=== PATIENT | female | born 1950 | race Caucasian/White ===

== ENCOUNTER 2018-05-29 06:02 | Inpatient (IN) ==
[2018-05-29] MEDS ORDERED: Albuterol 2.5 MG/3 ML NEBULIZER IH ONE (06:29)
[2018-05-29] MEDS ORDERED: CeFAZolin Syr 2,000MG/20 ML 2,000 MG/20 ML SYRINGE IVPB ONE (06:29)
[2018-05-29] MEDS ORDERED: Ringers Solution, Lactated 1,000 ML IVC SCH ×2 (06:30→11:30)
--- NOTE | 2018-05-29 06:46 | Anesthesia Evaluation PreOp ---
Date of Encounter: 05/29/18 Time of Encounter: 06:43 - Past History Planned Operation: Fem-[facility] Cardiac History: HTN, Hyperlipidemia, Arrhythmia (a-fib), Other (PAD, denies angina. Not very active due to claudication, I suspect METS<4) Pulmonary History: Smoker, Pack/yr (55), COPD, BATSHEVA Dx (no CPAP/BiPAP) FIELD SERVICE REPRESENTATIVE History: Seizures (with ) Other Medical History: Diabetes Type II (25 yrs), GERD Anesthesia History: No Prior Anesthetic Complications, Past Anesthesia (CTR, stevie, left AKS, cataract) Alcohol Use: rarely Drug use: none Medications and Allergies Albuterol Sulfate [Proventil Hfa] 2 puff IH Q4H PRN 01/26/18 [History] Clopidogrel [Plavix] 75 mg PO DAILY 01/26/18 [History] Ezetimibe [Zetia] 10 mg PO DAILY 01/26/18 [History] Fluticasone Propionate Nasal [Flonase] 50 mcg NS BID PRN 01/26/18 [History] Furosemide [Lasix] 40 mg PO DAILY 01/26/18 [History] HYDROcodone/Acet 7.5/325 mg [[place] 7.5-325 mg] 1 tab PO Q4-6H PRN 01/26/18 [History] Insulin ASPART [Novolog Flexpen] 3 - 5 unit SQ QID 01/26/18 [History] Insulin Glargine,Hum.rec.anlog [Lantus Solostar] 62 unit SQ HS 01/26/18 [History] Ipratropium/Albuterol Neb [Duoneb] 3 ml IH QID PRN 01/26/18 [History] Linagliptin [Tradjenta] 5 mg PO DAILY 01/26/18 [History] Metformin HCl [Fortamet] 1,000 mg PO BID 01/26/18 [History] Metoprolol Succinate [Toprol Xl] 200 mg PO DAILY 01/26/18 [History] Umeclidinium Brm/Vilanterol Tr [Anoro Ellipta 62.5-25 Mcg INH] 1 each IH DAILY 01/26/18 [History] Potassium Chloride [Klor-Con 10] 20 meq PO BID #60 tablet.er 01/28/18 [Rx] amLODIPine [Norvasc] 10 mg PO DAILY #30 tablet 01/28/18 [Rx] Losartan Potassium 100 mg PO DAILY 03/23/18 [History] Tizanidine HCl [Zanaflex] 2 mg PO BID 03/23/18 [History] Allergy/AdvReac Type Severity Reaction Status Date / Time Amoxicillin [From Trimox] Allergy Rash Verified 04/04/18 12:50 Penicillins AdvReac See Verified 04/04/18 12:50 Comments - Meds/Allergy Pre-op Review Medications Reviewed: Yes Allergies Reviewed: Yes Beta Blockers on Current Med List: Yes If Beta Blockers taken, Date/Time (Last Dose taken): yesterday 1330 Anesthesia Results - Labs Laboratory Tests 05/21/18 05/21/18 05/21/18 13:05 13:05 13:05 Hgb 14.2 Hct 43.0 Plt Count 293 PT 12.2 H INR 1.1 APTT 31.6 Sodium 140 Potassium 3.3 L BUN 7 L Creatinine 0.69 - Imaging EKG: report reviewed (Atrial fibrillation Ventricular bigeminy LVH with secondary repolarization abnormality) Additional studies: stress test: Impression: Perfusion imaging was positive for ischemia. There is a small sized reversible perfusion defect which is mild in intensity in the mid-anterolateral segment. SDS = 1. Clinical correlation is recommended. Pharmacologic ECG was non diagnostic for ischemia. Gated EF of 19%. May not be accurate as patient is in afib and had PVCs. Recommend echocardiogram Patient had no chest pain with stress. Normal hemodynamic response. There is no evidence of TID. PFTs: INTERPRETATION: Quality: Acceptable for interpretation; patient could not complete DLCO despite several attempts Spirometry shows mild airway obstructive pattern Following Bronchodilator, there is significant improvement in FVC by 14%. MVV is decreased. Increased Lung Volumes reveal hyperinflation and air trapping. FTotal lung capacitylow Volume Loop: Obstructive Anesthesia Exam - HEENT Pupil (Motor): EOMI Mallampati: III Teeth: Edentulous Oral Opening: Greater than 3 - FIELD SERVICE REPRESENTATIVE LOC: Oriented FIELD SERVICE REPRESENTATIVE Motor: Normal RUE, Normal LUE, Normal RLE, Normal LLE, Normal Face FIELD SERVICE REPRESENTATIVE Sensory: Normal: RUE, LUE, RLE, LLE, Face - Cardiac Rhythm: Irregular Murmur: None - Pulmonary Breath Sounds: bilateral Rhonchi (scattered) - Additional Findings Patient had extensive workup at [facility] in . 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 Multiple pages reviewed form Zac. Anesthesia Assess/Plan ASA Score: 4 Level of consciousness: Cooperative, Oriented, Tranquil Anesthetic Plan: General Monitoring Plan: Standard Monitors, A-Line, CVC Recovery Plan: PACU (Risks explained to patient, agree to proceed.)
[2018-05-29] MEDS ORDERED: *HR* Phenylephrine 10 MG/ML VIAL ONE (07:09)
[2018-05-29] MEDS ORDERED: Ondansetron 4 MG/2 ML VIAL ONE (07:09)
[2018-05-29] MEDS ORDERED: Water for inj. (sterile) 10 ML IV ONE ×3 (07:09→07:25)
[2018-05-29] MEDS ORDERED: Dexamethasone 4 MG/ML VIAL ONE (07:09)
[2018-05-29] MEDS ORDERED: *HR* Succinylcholine 200 MG/10 ML VIAL IVP ONE (07:09)
[2018-05-29] MEDS ORDERED: Lidocaine -MPF 4% 5 ML AMPUL ONE (07:09)
[2018-05-29] MEDS ORDERED: Lidocaine -MPF 2% 2 ML VIAL ONE (07:09)
[2018-05-29] MEDS ORDERED: *HR* Rocuronium Bromide 50 MG/5 ML VIAL ONE (07:09)
[2018-05-29] MEDS ORDERED: *HR* Heparin 5,000 UNIT/ML VIAL ONE (07:09)
[2018-05-29] MEDS ORDERED: Heparin 1,000 UNITS/500 mL 500 ML ONE (07:19)
[2018-05-29] MEDS ORDERED: *HR* FentaNYL (PF) 100 MCG/2 ML VIAL ONE (07:23)
[2018-05-29] MEDS ORDERED: Heparin 1,000 UNITS/500 mL 1,500 ML ONE (07:23)
[2018-05-29] MEDS ORDERED: *HR* Propofol 200 MG/20 ML VIAL IVP ONE (07:23)
[2018-05-29] MEDS ORDERED: *HR* Midazolam HCl 2 MG/2 ML VIAL ONE (07:23)
[2018-05-29] MEDS ORDERED: EPHEDrine 50 MG/ML VIAL ONE (07:25)
[2018-05-29] MEDS ORDERED: *HR* EPINEPHrine 1 MG/ML AMPUL ONE (07:37)
[2018-05-29] MEDS ORDERED: *HR* Etomidate 40 MG/20 ML VIAL IVP ONE (07:44)
[2018-05-29] MEDS ORDERED: ceFAZolin 1,000 MG, Sodium Chloride IRRigation 1,000 ML IR ONE (07:45)
--- NOTE | 2018-05-29 07:54 | History & Physical Report ---
Date of Encounter: 05/29/18 Time of Encounter: 07:25 24 Hour HP Update - Instructions Instructions: If the History and Physical is less than 30 days old and was completed prior to A.M. admission and or procedure and has NOT been updated on calendar day of procedure please complete this update prior to performing procedure. - Update Patient reports changes in Medical Condition: No Changes in examination, assessment, or condition: No Changes in Medication: No Preop tests/diagnostics Reviewed: Yes Surgery Remains Indicated: Yes Consent for Planned Operative Procedure(s) Verified: Yes - Pre-Operative Checklist Preoperative Checklist Indicated: Yes Prophylactic Antibiotic Ordered: Yes Home Medications Include Beta Taryn: Yes Beta Taryn Taken Today (Day of Surgery): Yes Beta Taryn Taken Yesterday (Day Prior to Surgery): Yes Is VTE Prophylaxis Indicated?: Yes
[2018-05-29 08:29] LABS: ABG Base Excess 2 mEq/L (-2 to 3); ABG Chloride 104 mEq/L (98-107); ABG Glucose 113 mg/dL (60-95); ABG HCO3 28 mEq/L (21-27); ABG Ionized Calcium 1.19 mmol/L (1.15-1.35); ABG Oxygen Saturation 98 % (95-98); ABG PCO2 46 mmHg (35-45); ABG PH 7.39 pH Units (7.32-7.45); ABG PO2 99 mmHg (85-104); ABG TCO2 29 mEq/L (20-26)
[2018-05-29] MEDS ORDERED: Albumin Human 5% 25.0 GM/500 ML VIAL ONE (08:37)
[2018-05-29 10:12] LABS: ABG Base Excess 1 mEq/L (-2 to 3); ABG Chloride 104 mEq/L (98-107); ABG Glucose 174 mg/dL (60-95); ABG HCO3 28 mEq/L (21-27); ABG Ionized Calcium 1.16 mmol/L (1.15-1.35); ABG Oxygen Saturation 97 % (95-98); ABG PCO2 56 mmHg (35-45); ABG PH 7.31 pH Units (7.32-7.45); ABG PO2 107 mmHg (85-104); ABG TCO2 30 mEq/L (20-26)
[2018-05-29] MEDS ORDERED: Protamine Sulfate 50 MG/5 ML VIAL IVP ONE (10:12)
[2018-05-29] MEDS ORDERED: Neostigmine Methylsulfate 3 MG/3 ML SYRINGE ONE (10:20)
--- NOTE | 2018-05-29 10:32 | Operative Note ---
Date of procedure: 05/29/18 Pre-op diagnosis: PAD/ claudication Post-op diagnosis: same Procedure: right to left femoral-femoral bypass graft with 6 mm PTFE Complications: 0 Anesthesia: GETA Surgeon: Brennon Beckwith Co-Surgeon: Ariel Jerez Was there an assistant county engineer present: No Estimated blood loss (cc): 200 Specimen: 0 Condition: stable Disposition: PACU Procedure in Detail: History Audrey Tafoya is a 67-year-old white female with a long history of vascular disease. She has multiple risk factors for vascular disease including diabetes and tobacco abuse. She also has known coronary artery disease. The patient is status post previous bilateral common iliac artery stents. The left common iliac artery stent occluded and was not amenable to endovascular intervention. The patient now comes to the operating room for a femoral-femoral bypass graft to improve the inflow to the left lower extremity. Procedure After informed consent was obtained the patient was taken to the operating room. General endotracheal anesthesia was established under arterial line pressure monitoring. The abdomen groin and upper thighs were sterilely prepped and draped. Timeout protocol was observed. A 2 team surgical approach was used in order to facilitate intraoperative decision-making and to decrease intraoperative blood loss and anesthetic time. Using a 2 team approach the femoral arteries were dissected simultaneously. Dissection was carried down to the common femoral artery. Control was obtained of the vessel as well as the femoral bifurcation. On the right side there was significant scarring associated with previous endovascular procedures. Plaque was found on the posterior aspect of the right femoral system but there is no significant plaque in the left femoral system. 5000 units of heparin were then administered intravenously after a deep subcutaneous tunnel was created from the right to the left groin. After 3 minute delay the vessels were clamped. They were then opened with an 11 blade knife on the anterior surface of the distal common femoral artery. The grafts were then sewn into position end-to-side configuration using 6-0 Prolene suture. After appropriate backbleeding and flushing the graft was opened. Pulsatile flow was then achieved from the right to the left common femoral artery. Flow was confirmed by Doppler evaluation. The wounds were then irrigated and hemostasis was achieved. Marcaine was infiltrated into the wound. The wounds were then closed in layers using absorbable suture. A dry sterile dressing was applied. There were no intraoperative complications. The patient tolerated the procedure well. The patient was extubated in the operating room and taken to the recovery room in stable condition.
[2018-05-29] MEDS ORDERED: *HR* Morphine 10 MG/ML VIAL ONE (10:38)
[2018-05-29] MEDS ORDERED: SUGAMMADEX SODIUM 500 MG/5 ML VIAL IV ONE (10:45)
[2018-05-29] MEDS ORDERED: *HR* Promethazine 25 MG/ML VIAL IVP PRN (11:20)
[2018-05-29] MEDS ORDERED: *HR* OxyCODONE Immed Rel 5 MG TABLET PO PRN (11:20)
[2018-05-29] MEDS ORDERED: *HR* FentaNYL (PF) 100 MCG/2 ML VIAL IVP PRN (11:20)
--- NOTE | 2018-05-29 13:32 | Operative Note ---
Date of procedure: 05/29/18 Pre-op diagnosis: Peripheral Vascualr Disease Post-op diagnosis: same Procedure: Right common femoral to left common femoral artery bypass with 6mm ring reinforced PTFE graft. Anesthesia: GETA Surgeon: Ariel Jerez Co-Surgeon: Brennon Beckwith Was there an physical therapist assistant present: No Estimated blood loss (cc): 200 Specimen: None Condition: stable Disposition: PACU Procedure in Detail: Indications: The patient is a 67 year old female with a history of diabetes, tobacco abuse and coronary artery disease. The patient presented underwent iliac stent placement. However her left iliac stent occluded. She presented to clinic with complaints of peripheral vascular disease with disabling claudication. Revascularization was recommended to alleviate her symptoms. Procedure: The patient was identified in the preoperative area. The risks, benefits, and alternatives of the procedure were discussed. All questions were answered. The patient was taken to the operating room and placed in supine position on the operating room table. After the induction of general endotracheal anesthesia, he was cleaned and draped in normal sterile fashion. A two surgeon approach was utilized for this procedure in order to minimize a nesthetic time and the risks for complications due to the patients comorbid conditions. In addition, a two surgeon approach was used for intraoperative decision making. An oblique incision was made over the right groin sharply. Hemostasis was obtained with electrocautery. Through a process of blunt, sharp, and electrocautery dissection, the right femoral vessels were dissected circumferentially and surrounded with vessel loops. An oblique incision was then made over the left groin sharply. Hemostasis was obtained with electrocautery. Through a process of blunt, sharp, and electrocautery dissection, the left femoral vessels were dissected circumferentially and surrounded with vessel loops. A graft was tunneled between the right and left femoral incisions. The patient received 5000 units of heparin intravenously. The graft was sutured in place with a running 6-0 Prolene. The vessels were flushed through the graft. Heparinized saline was infused into the graft lumen. The graft was clamped with an atraumatic clamp. Flow was restored in the right femoral vessels. Tension was applied to the left femoral artery vessel loops. An arteriotomy was made in the left common femoral artery and the graft was cut to fit the defect. The graft was anastamosed with a running 6-0 Prolene. Prior to completing the anastamosis, the left femoral vessels were flushed through the graft anastamosis and heparin was infused into the lumen. The anastamosis was completed and flow was restored in the left lower extremity. Thrombin and gelfoam were used at the proximal anastamosis. Polyphasic signals were noted distal to the anastamoses. The wounds were irrigated with antibiotic-containing saline. Meticulous hemostasis was obtained throughout the wound with electrocautery. Wounds were reapproximated with layers of 2-0 and 3-0 Vicryl. Skin was reapproximated with 4-0 Vicryl. Sterile dressing was applied. The patient was extubated and taken to recovery room in stable condition.
[2018-05-29] MEDS ORDERED: Ipratropium/Albuterol Neb 3 ML IH PRN (13:36)
[2018-05-29] MEDS ORDERED: DICLOFENAC SODIUM TP PRN (13:36)
[2018-05-29] MEDS ORDERED: *HR* Labetalol 20 MG/4 ML SYRINGE IVP PRN (13:36)
[2018-05-29] MEDS ORDERED: Fluticasone Propionate Nasal 50 MCG/SPRAY BOTTLE NS PRN (13:36)
[2018-05-29] MEDS ORDERED: Ondansetron 4 MG/2 ML VIAL IVP PRN (13:36)
[2018-05-29] MEDS ORDERED: Naloxone 0.4 MG/ML INJ IVP PRN (13:36)
[2018-05-29] MEDS: *HR* HYDROcodone/Acet 7.5/325 mg TABLET PO PRN ×2 (17:17→21:20)
[2018-05-29] MEDS: Insulin LISPRO 300 UNITS/3 ML VIAL SQ SCH (17:17)
[2018-05-29] MEDS: *HR* Metformin 500 MG TABLET PO SCH (17:17)
[2018-05-29] MEDS ORDERED: *HR* Dextrose 50 % in Water (Syg) 50 ML SYRINGE IVP PRN (20:54)
[2018-05-29] MEDS ORDERED: Dextrose Gel 15 GM/37.5 ML TUBE PO PRN ×2 (20:54)
[2018-05-29] MEDS ORDERED: D5% in Water 1,000 ML IVC PRN (20:54)
[2018-05-29] MEDS ORDERED: Insulin LISPRO 300 UNITS/3 ML VIAL SQ SCH (21:00)
[2018-05-29] MEDS ORDERED: Insulin DETEMIR 100 UNIT/ML X5UNITS SQ SCH (21:00)
[2018-05-29] MEDS: tiZANidine 4 MG TABLET PO SCH (21:10)
[2018-05-30] MEDS: *HR* HYDROcodone/Acet 7.5/325 mg TABLET PO PRN ×3 (03:50→13:41)
[2018-05-30 03:55] LABS: Basophils % 0.1 %; Hematocrit 33.6 % (35.3-44.9); Hemoglobin 11.2 g/dL (11.5-15.4); Immature Granulocytes % 0.3 % (0-4); Lymphocytes # 1.1 K/mcL (0.6-4.6); Lymphocytes % 9.7 %; Mean Corpuscular HGB Conc 33.3 g/dL (31.6-35.5); Mean Corpuscular Hemoglobin 32.2 pg (28.0-33.3); Mean Corpuscular Volume 96.6 fL (83.0-100.0); Mean Platelet Volume 9.9 fL (9.4-12.4); Monocytes # 0.8 K/mcL (0.0-1.3); Monocytes % 6.8 %; Neutrophils # 9.7 K/mcL (1.6-8.9); Platelet Count 263 K/mcL (140-400); Red Blood Count 3.48 M/mcL (3.82-4.97); Red Cell Distribution Width 12.7 % (11.5-14.5); Segmented Neutrophils % 83.1 %
[2018-05-30 04:09] LABS: BUN/Creatinine Ratio 12 (6-26); Blood Urea Nitrogen 13 mg/dL (8-23); Calcium 8.7 mg/dL (8.6-10.3); Carbon Dioxide 26 mEq/L (23-29); Chloride 98 mEq/L (98-107); Glucose 284 mg/dL (70-105); Osmolality,Calculated 286 (280-300); Potassium 4.6 mEq/L (3.5-5.1); Sodium 133 mEq/L (136-145); eGFR For Non-African Americans 52 (> 60)
[2018-05-30] MEDS: *HR* Metformin 500 MG TABLET PO SCH (07:50)
[2018-05-30] MEDS: tiZANidine 4 MG TABLET PO SCH (07:50)
[2018-05-30] MEDS: Insulin LISPRO 300 UNITS/3 ML VIAL SQ SCH ×4 (07:52→12:17)
[2018-05-30] MEDS ORDERED: Furosemide 40 MG TABLET PO SCH (09:00)
[2018-05-30] MEDS ORDERED: amLODIPine 5 MG TABLET PO SCH (09:00)
[2018-05-30] MEDS ORDERED: Metoprolol XL (24 HR) Succ 50 MG TAB.ER.24H PO SCH (09:00)
[2018-05-30] MEDS ORDERED: Aspirin Enteric Coated 81 MG Tablet PO SCH (09:00)
[2018-05-30] MEDS ORDERED: Anoro Ellipta 62.5-2 IH SCH (09:00)
--- NOTE | 2018-05-30 09:00 | Discharge Summary ---
Date of Encounter: 05/30/18 Time of Encounter: 08:58 - Discharge Diagnosis (1) PAD (peripheral artery disease) Priority: Primary Status: Chronic Comments: Patient has history of bilateral iliac arteries stents. Patient has an occluded left common iliac artery stent. Patient has significant lower extremity ischemia and claudication. Patient was admitted for a femoral-femoral bypass graft to restore inflow to the left lower extremity. (2) Diabetes mellitus Priority: Secondary Status: Chronic Comments: Patient has chronic history of diabetes Qualifiers: Diabetes mellitus type: type 2 Diabetes mellitus extermination inspector insulin use: with extermination inspector use Diabetes mellitus complication status: with unspecified complications Qualified Code(s): E11.8 - Type 2 diabetes mellitus with unspecified complications; Z79.4 - extermination inspector (current) use of insulin (3) Tobacco use Priority: Secondary Status: Chronic Comments: Patient has chronic history of tobacco abuse. - Hospital Course Hospital course: Ms. Tafoya is a 67 year old female With known lower extremity vascular disease. She has a history of bilateral iliac artery stents. The left common iliac artery stent went on to occlude. This is not able to be opened with endovascular techniques. Patient was admitted for a inflow procedure. A right to left femoral-femoral bypass graft was performed. There were no periprocedural complications. The patient tolerated the procedure well. The patient had a warm left foot with palpable pulse following surgery. The patient was felt fit for discharge on the afternoon of postoperative day #1. Instructions were given in regards to diet and medications and wound care. - Time Spent with Patient Total time spent providing and/or coordinating discharge services: - Discharge Medications Prescriptions: No Action RX: Tizanidine HCl [Zanaflex] 2 mg PO BID PRN PRN Reason: Muscle Spasm RX: Losartan Potassium 100 mg PO DAILY Promethazine [Phenergan] 25 mg PO Q12HR PRN PRN Reason: Nausea Pantoprazole Sodium [Protonix] 40 mg PO DAILY Aspirin [Lo-Dose Aspirin EC] 81 mg PO DAILY Atorvastatin Calcium [Lipitor] 40 mg PO DAILY Diclofenac Sodium [Voltaren] 1 appl TP QID PRN PRN Reason: Pain RX: Insulin ASPART [Novolog Flexpen] 3 unit SQ QID RX: Fluticasone Propionate Nasal [Flonase] 2 spr NS DAILY RX: Metoprolol Succinate [Toprol Xl] 100 mg PO DAILY RX: Linagliptin [Tradjenta] 5 mg PO DAILY RX: Insulin Glargine,Hum.rec.anlog [Lantus Solostar] 30 unit SQ HS RX: Furosemide [Lasix] 40 mg PO DAILY RX: Ezetimibe [Zetia] 10 mg PO DAILY RX: Clopidogrel [Plavix] 75 mg PO DAILY RX: Albuterol Sulfate [Proventil Hfa] 2 puff IH Q4H PRN PRN Reason: Shortness Of Breath RX: Umeclidinium Brm/Vilanterol Tr [Anoro Ellipta 62.5-25 Mcg INH] 1 each IH DAILY RX: Metformin HCl [Fortamet] 1,000 mg PO BID RX: HYDROcodone/Acet 7.5/325 mg [[place] 7.5-325 mg] 1 tab PO Q4-6H PRN PRN Reason: Pain RX: Ipratropium/Albuterol Neb [Duoneb] 3 ml IH QID PRN PRN Reason: Shortness Of Breath RX: amLODIPine [Norvasc] 10 mg PO DAILY #30 tablet RX: Potassium Chloride [Klor-Con 10] 20 meq PO BID #60 tablet.er Home Medications: RX: Albuterol Sulfate [Proventil Hfa] 2 puff IH Q4H PRN 01/26/18 [History] RX: Clopidogrel [Plavix] 75 mg PO DAILY 01/26/18 [History] RX: Ezetimibe [Zetia] 10 mg PO DAILY 01/26/18 [History] RX: Fluticasone Propionate Nasal [Flonase] 2 spr NS DAILY 01/26/18 [History] RX: Furosemide [Lasix] 40 mg PO DAILY 01/26/18 [History] RX: HYDROcodone/Acet 7.5/325 mg [[place] 7.5-325 mg] 1 tab PO Q4-6H PRN 01/26/18 [History] RX: Insulin ASPART [Novolog Flexpen] 3 unit SQ QID 01/26/18 [History] RX: Insulin Glargine,Hum.rec.anlog [Lantus Solostar] 30 unit SQ HS 01/26/18 [History] RX: Ipratropium/Albuterol Neb [Duoneb] 3 ml IH QID PRN 01/26/18 [History] RX: Linagliptin [Tradjenta] 5 mg PO DAILY 01/26/18 [History] RX: Metformin HCl [Fortamet] 1,000 mg PO BID 01/26/18 [History] RX: Metoprolol Succinate [Toprol Xl] 100 mg PO DAILY 01/26/18 [History] RX: Umeclidinium Brm/Vilanterol Tr [Anoro Ellipta 62.5-25 Mcg INH] 1 each IH DAILY 01/26/18 [History] RX: Potassium Chloride [Klor-Con 10] 20 meq PO BID #60 tablet.er 01/28/18 [Rx] RX: amLODIPine [Norvasc] 10 mg PO DAILY #30 tablet 01/28/18 [Rx] RX: Losartan Potassium 100 mg PO DAILY 03/23/18 [History] RX: Tizanidine HCl [Zanaflex] 2 mg PO BID PRN 03/23/18 [History] Aspirin [Lo-Dose Aspirin EC] 81 mg PO DAILY 05/29/18 [History] Atorvastatin Calcium [Lipitor] 40 mg PO DAILY 05/29/18 [History] Diclofenac Sodium [Voltaren] 1 appl TP QID PRN 05/29/18 [History] Pantoprazole Sodium [Protonix] 40 mg PO DAILY 05/29/18 [History] Promethazine [Phenergan] 25 mg PO Q12HR PRN 05/29/18 [History] Allergies/Adverse Reactions: Allergy/AdvReac Type Severity Reaction Status Date / Time Amoxicillin [From Trimox] Allergy Rash Verified 05/30/18 11:46 Penicillins AdvReac See Verified 05/30/18 11:46 Comments Date of admission: 05/29/18 13:08 Primary care physician: Marielle Wang [employer]LING [employer]TER[employer] INSTALLER Consults: None Procedure(s) Performed: Right to left femoral-femoral bypass graft with 6 mm PTFE Discharging clinician: Brennon Beckwith Anticipated date of discharge: 05/30/18 Exam Vital Signs, Last 4 Hours Temp Pulse Resp BP Pulse Ox 05/30/18 07:29 97.7 F 72 18 145/99 89 General: Present: Conversant HEENT: Present: Atraumatic Neck: Absent: JVD Vascular: Present: Pulse, normal, Color/Temperature (Left foot is warm and pink), Surgical incisions (Patient has dry and clean femoral incisions.) Skin: Present: No rashes noted on visualized skin - Patient Status Disposition: Home, Self-Care Condition: Good Functional capacity at discharge: independent ambulation Overall status at discharge: patient is progressing back to baseline - Discharge Instructions Follow Up With: Marielle Wang CNP [Primary Care Provider] - 06/05/18 10:20 am Brennon Beckwith MD [Partnered Physician] - 07/02/18 8:45 am (this appointment is in [place]) Additional Instructions: No lifting greater than 10 pounds. No automobile driving. Keep surgical sites dry for total of 5 days following surgery. Resume usual home medications. No smoking. Patient may walk inside and outside. Patient may use stairs as tolerated. Using incentive spirometer 10 times an hour while awake for the next 2 weeks and then discard spirometer. - Diet and Activity Activity: increase activity as tolerated Diet: diabetic diet
[2018-05-30 11:06] VITALS: BP 136/64
== END 2018-05-30 14:57 | disposition home or self-care (01) | DRG 253 ==
LOC: SAMDAY 06:02 → 2NNU 13:08
PROVIDERS: ADMIT Surgery Vascular Surgery; ATTEND Surgery Vascular Surgery
PROC: VASFFBG (ICD-10-PCS; 2018-05-29 07:45)

== ENCOUNTER 2018-11-14 17:17 | Inpatient (IN) ==
--- NOTE | 2018-11-14 20:15 | Internal Med History&Physical ---
<Jessica Wang - Last Filed: 11/15/18 00:39> Date of Encounter: 11/15/18 Time of Encounter: 20:03 Internal Medicine - H&P: HPI Chief complaint: shortness of breath Admitted From: Hospital to Hospital Transfer Plans for Post Hospital Care: Home History of present illness: Ms. Tafoya is a 67 year old female with past medical history of atrial fibrillation, COPD, diabetes, PAD, hypertension who presented to [facility] as a transfer from [place] ED due to supratherapeutic INR. Upon my examination of the patient she reported that 3 days ago and she was seen at her [employer] PCP office due to shortness of breath and she was treated for bronchitis with steroid taper and doxycycline which she thinks was helping her shortness of breath. Today she followed up in the office due to hemoptysis about a tsp in total. Her [employer] recommended to go to hospital due to elevated INR 12.9 and hemoptysis. Her INR was being checked for the 1st time due to her starting Coumadin 5 days ago that she takes for atrial fibrillation and thrombus in LA appendage. She wears 2L O2 continuous but increased to 2.5L over the past couple days. Patient reported that she has had increased lower extremity leg swelling over the past 2 weeks. She has gained 20lbs over the past week where her dry weight is 142lbs and she was told at the PCP she was 169lbs. she does not follow a fluid restrictive diet but does monitor her salt intake. She believes that her water pill had been changed a few days ago but is unsure of this changes. Although there is no diuretic listed as home medication. She reports she been compliant with all of her medications. She denied fever, chills, palpitations, nausea, vomiting, abdominal pain, difficulty urinating. No sick contacts the recent hospitalizations. She is a current smoker of 6 cigarettes a day for roughly 20 years. She denied alcohol and drug use. She is a full code. Initial vitals in the ED at [place] were temperature 98.7F, HR 77, RR 22, BP 141/88, SpO2 94% on 3 L. WBC 15.4, hemoglobin 11.1, platelets 394. INR 12.9, PT 146.9, APTT 50.7. Sodium 125, potassium 5.4, creatinine 1.5, glucose 533, lactic acid 3.7. BNP 848. Chest x-ray showing card immensely with vascular con gestion. -In [place] ED patient given 500cc IVF, duoneb, insulin 10 units, sodium bicarb 50meq for the hyperkalemia. She was given Solu-Medrol 125. She was given vitamin K 10.mg for the supratherapeutic INR. Then transferred to [facility]. Past Med Surg Social Fam HX - Past Medical History Attestation: Yes The following information was validated with the patient. Source: patient Medical history: atrial fibrillation, COPD, diabetes, fibromyalgia, hyperlipidemia, hypertension, peripheral artery disease, seizures, other Psychiatric history: no psych history - Past Surgical History Surgical History: cholecystectomy, orthopedic, other, other, vascular surgery Additional surgical history: Stents in legs - Social History Smoking Status: Current every day smoker Smokeless Tobacco Status: No Alcohol use: rarely Drug use: none - Family History Mother Living Status: Hx Family Cardiac Disorders: Yes (History of hypertension) Hx Family Neurologic Disorders: Yes (History of Parkinson's disease) Father Living Status: Brother Living Status: Hx Family Cancer: Yes (Liver cancer, status post liver transplant) Sister Living Status: Internal Medicine - H&P: Meds Albuterol Sulfate [Proventil Hfa] 6.7 gm IH Q4H PRN 11/14/18 [History] Amlodipine Besylate 1 tab PO DAILY 11/14/18 [History] Atorvastatin [Lipitor] 1 tab PO DAILY 11/14/18 [History] Clopidogrel Bisulfate [Plavix] 1 tab PO DAILY 11/14/18 [History] Doxycycline Hyclate 100 mg PO BID 11/14/18 [History] Ezetimibe [Zetia] 1 tab PO DAILY 11/14/18 [History] Fluticasone Propionate Nasal [Flonase] 1 spray NS BID 11/14/18 [History] HYDROcodone/Acet 7.5/325 mg [[place] 7.5-325 mg] 1 tab PO Q4-6H PRN 11/14/18 [History] Insulin ASPART [Novolog Flexpen] 12 units SQ QID 11/14/18 [History] Insulin Glargine,Hum.rec.anlog [Lantus Solostar] 60 unit SQ HS 11/14/18 [History] Ipratropium/Albuterol Neb [Duoneb] 1 inh PO QID 11/14/18 [History] Linagliptin [Tradjenta] 1 tab PO DAILY 11/14/18 [History] Losartan Potassium 1 tab PO DAILY 11/14/18 [History] Metoprolol Succinate [Toprol Xl] 100 mg PO DAILY 11/14/18 [History] Pantoprazole Sodium [Protonix] 40 mg PO DAILY 11/14/18 [History] Potassium Chloride [K-Tab ER] 20 meq PO BID 11/14/18 [History] Prednisone 60 mg PO DAILY 11/14/18 [History] Promethazine [Phenergan] 25 mg PO Q12H PRN 11/14/18 [History] Tizanidine HCl 2 mg PO BID 11/14/18 [History] Umeclidinium Brm/Vilanterol Tr [Anoro Ellipta 62.5-25 Mcg INH] 1 puff PO DAILY 11/14/18 [History] Warfarin [Coumadin] 5 mg PO 1800 11/14/18 [History] metFORMIN [Glucophage] 1,000 mg PO BID 11/14/18 [History] Allergy/AdvReac Type Severity Reaction Status Date / Time Amoxicillin [From Trimox] Allergy Rash Verified 05/30/18 11:46 Penicillins AdvReac See Verified 05/30/18 11:46 Comments All Systems PM: A 10-system review of systems was performed and is negative for pertinent findings except as documented above in the HPI. - Constitutional Constitutional: no chills, no fever(s), no falls - EENT Eyes: no change in vision Nose, mouth and throat: no sore throat - Cardiovascular Cardiovascular ROS IM: dyspnea on exertion, edema (Lower extremity), no diaphoresis, no lightheadedness, no palpitations, no syncope - Respiratory Respiratory: dyspnea, hemoptysis, dyspnea on exertion, wheezing - Gastrointestinal Gastrointestinal: no abdominal pain, no diarrhea, no nausea, no vomiting - Genitourinary Genitourinary: no dysuria - Musculoskeletal Musculoskeletal ROS IM: no muscle cramps, no muscle weakness - Integumentary Integumentary IM: no rash, no skin ulcer - Neurological Neurological ROS: no dizziness, no frequent falls, no headache(s) - Psychiatric Psychiatric: no confusion - Endocrine Endocrine IM: no flushing - Constitutional Exam: Gen.: Vitals noted. No acute distress. AAOx3 HEENT: oropharynx clear, Normocephalic, atraumatic, no facial/sinus tenderness Cardiac: irregular, no murmur, +S1/S2 Pulmonary: diffuse bilaterally expiratory wheezes and rales or rhonchi, equal chest expansion Abdomen: soft, nontender, Bowel sounds noted, no guarding MSK: ROM intact, no joint swelling noted Extremities: 2+ BLE edema, nontender calf, no cyanosis or clubbing Neuro: A&Ox3, moves all extremities, no focal deficits Psych: Appropriate mood and behavior Internal Med - H&P Results - Labs CBC & Chem 7: 11/14/18 20:46 - Assessment and Plan (1) Acute exacerbation of chronic obstructive airways disease Current Visit: No Status: Acute Assessment and plan: Acute exacerbation of COPD. On 11/14 (per medical records) patient had been started on prednisone taper and doxycycline and had been improving symptomatically. Patient is on 2 L oxygen continuous back to increase to 2.5 L past couple days. She continues to smoke. -Afebrile, hemodynamically stable -WBC 15.4 -lactic acid 3.7 -Chest x-ray showing card immensely with vascular congestion. -Diffuse expiratory wheezing bilaterally and rales plan: -Will continue treatment course for COPD exacerbation with doxycycline and anticipate prednisone taper -continue home inhaler -continue duonebs -continue supplemental oxygen (2) Acute on chronic HFrEF (heart failure with reduced ejection fraction) Current Visit: Yes Status: Acute Assessment and plan: She has acute on chronic HFrEF. Increase bilateral lower extremity swelling, dyspnea on exertion, PND. She sleeps propped up due to back pain. Weight gain 20 pounds approximately. Dry weight 142lbs, at PCP office 169lbs. -suspect that the patient's acute CHF exacerbation is multifactorial due to her not having a diuretic, and poor diet although she stated she restricts her sodium intake. -BNP 848 -troponin 0.03 -Chest x-ray showing card immensely with vascular congestion. -11/06/2018 [place]: EF= 20-25%, severe global [place] kinesis, severe biatrial dilatation. Thrombus measuring 4 mm x 7 mm in the tip of LA appendage. Moderate tricuspid regurgitation, mild pulmonary hypertension. -Examination she has bilateral rales, and 2+ pitting lower extremity edema. No JVD. plan -continue Lasix IV 20 mg -continue home Toprol -hold home losartan due to EVARISTO. Will resume when able -strict I&O -fluid restrictive diet -daily weight (3) Supratherapeutic INR Current Visit: Yes Status: Acute Assessment and plan: Patient with supratherapeutic INR of 12.9 secondary to taking Coumadin that was started 5 days ago. She takes Coumadin for atrial fibrillation and a thrombus found in the LA appendage. Patient started having hemoptysis today with tsp blood. At [place] patient was given vitamin K 10 mg. -INR 10.4 -no current obvious active bleeding plan: -monitor INR. Will not give any other vitamin K at this time. -Monitor for bleeding -holding Coumadin (4) Hemoptysis Current Visit: No Status: Acute Assessment and plan: Small amount of hemoptysis of approximately 1 teaspoon amount today. This is in the setting of supratherapeutic INR due to taking Coumadin. -Hemoglobin 11.1 stable -patient does not have any other hemoptysis since admission. -Holding Coumadin - monitor hemoglobin -will continue to monitor for bleeding (5) EVARISTO (acute kidney injury) Current Visit: Yes Status: Acute Assessment and plan: Acute kidney injury with creatinine 1.5 at [place]. Suspected that this may be due to prerenal with hyperkalemia as the patient appears volume overloaded on exam with rales, bilateral lower extremity edema, and increased weight gain. Denies difficulty urinating so do not suspect post renal. -creatinine 1.33 improving -baseline creatinine 0.8-1.0 plan -will cautiously diuresis giving 20 IV Lasix -monitor serum creatinine -strict I&O -continue renal protective strategy including renal dose medications and avoid nephrotoxic agents (6) Lactic acidosis Current Visit: No Status: Acute Assessment and plan: Lactic acidosis initial presentation 3.7 -May be due to COPD and CHF exacerbation. No anion gap. -lactic acid 2.5 improving -Repeat lactic acid (7) Hyperglycemia Current Visit: No Status: Acute Assessment and plan: Patient was hyperglycemic on admission to [place] with glucose 533. Not DKA or HHS. -glucose 516 -no AG -osmolality WNL plan: -continue Levemir 20 units HS -continue high dose sliding scale insulin q4h -continue Accu check (8) Hyperkalemia Current Visit: No Status: Acute Assessment and plan: Resolved. Patient was initially hyperkalemic at [place] with potassium 5.4 and was given 500cc IVF, duonneb, insulin 10 units, sodium bicarb 50meq. -Potassium 5.0 -will continue to monitor (9) LA thrombus Current Visit: Yes Status: Acute Assessment and plan: LA thrombus found on TTE for which the patient takes Coumadin. -11/06/2018 [place]: EF= 20-25%, severe global [place] kinesis, severe biatrial dilatation. Thrombus measuring 4 mm x 7 mm in the tip of LA appendage. Moderate tricuspid regurgitation, mild pulmonary hypertension. -Holding Coumadin due to supratherapeutic INR, complicated by hemoptysis (10) Atrial fibrillation Current Visit: No Status: Chronic Assessment and plan: History of known atrial fibrillation on anticoagulation with Coumadin and rate controlled with metoprolol -EKG: HR 79, atrial fibrillation, no ST or T wave changes -holding Coumadin due to supratherapeutic INR -continue Toprol Qualifiers: Atrial fibrillation type: chronic Qualified Code(s): I48.2 - Chronic atrial fibrillation (11) Diabetes mellitus Current Visit: No Status: Chronic Assessment and plan: History of diabetes taking insulin. -Glucose 553 -continue Levemir 20 units HS -continue high dose sliding scale insulin Q4h -diabetic diet Qualifiers: Diabetes mellitus type: type 2 Diabetes mellitus mcc insulin use: with supervisor intermediates use Diabetes mellitus complication status: with hyperglycemia Qualified Code(s): E11.65 - Type 2 diabetes mellitus with hyperglycemia; Z79.4 - care home (current) use of insulin (12) Tobacco use Current Visit: No Status: Chronic Assessment and plan: Current smoker of 6 cigarettes a day. She used to smoke more heavily and has smoked for roughly 20 years. She is not interested in quitting at this time. (13) PAD (peripheral artery disease) Current Visit: No Status: Chronic Assessment and plan: History peripheral artery disease with stents in lower extremities. Continue home Plavix. (14) DVT prophylaxis Current Visit: Yes Status: Acute Assessment and plan: EPCD - Time Spent With Patient Total time spent is greater than 50% in coordination of care (as documented) at patient's floor/unit and/or counseling patient: <Trino Ferreira - Last Filed: 11/15/18 03:15> Date of Encounter: 11/14/18 Internal Medicine - H&P: HPI History of present illness: Ms. Tafoya is a 67 year old female All Systems PM: A 10-system review of systems was performed and is negative for pertinent findings except as documented above in the HPI. - Constitutional Vitals: Temp Pulse Resp BP Pulse Ox 97.4 F L 79 22 152/92 98 11/15/18 02:55 11/15/18 02:55 11/15/18 02:55 11/15/18 02:55 11/15/18 02:55 Internal Med - H&P Results - Labs CBC & Chem 7: 11/15/18 00:15 11/15/18 00:15 Labs: Short CBC 11/15/18 Range/Units 00:15 WBC 9.8 (4.3-11.1) K/mcL Hgb 10.7 L (11.5-15.4) g/dL Hct 34.4 L (35.3-44.9) % Plt Count 355 (140-400) K/mcL Neutrophils # 9.0 H (1.6-8.9) K/mcL BMP 11/14/18 11/15/18 20:46 00:15 Sodium 129 L 128 L Potassium 5.0 5.1 Chloride 92 L 92 L Carbon Dioxide 27 24 BUN 32 H 32 H Creatinine 1.33 H 1.29 H Glucose 516 H* 543 H* Calcium 9.4 9.1 Cardiac Enzymes 11/15/18 Range/Units 00:15 Troponin I 0.03 (< 0.04) ng/mL - Assessment and Plan (1) Acute exacerbation of chronic obstructive airways disease Current Visit: No Status: Acute (2) Acute on chronic HFrEF (heart failure with reduced ejection fraction) Current Visit: Yes Status: Acute (3) Supratherapeutic INR Current Visit: Yes Status: Acute (4) Hemoptysis Current Visit: No Status: Acute (5) EVARISTO (acute kidney injury) Current Visit: Yes Status: Acute (6) Lactic acidosis Current Visit: No Status: Acute (7) Hyperglycemia Current Visit: No Status: Acute (8) Hyperkalemia Current Visit: No Status: Acute (9) LA thrombus Current Visit: Yes Status: Acute (10) Atrial fibrillation Current Visit: No Status: Chronic Qualifiers: Atrial fibrillation type: chronic Qualified Code(s): I48.2 - Chronic atrial fibrillation (11) Diabetes mellitus Current Visit: No Status: Chronic Qualifiers: Diabetes mellitus type: type 2 Diabetes mellitus supervisor intermediates insulin use: with supervisor intermediates use Diabetes mellitus complication status: with hyperglycemia Qualified Code(s): E11.65 - Type 2 diabetes mellitus with hyperglycemia; Z79.4 - care home (current) use of insulin (12) Tobacco use Current Visit: No Status: Chronic (13) PAD (peripheral artery disease) Current Visit: No Status: Chronic (14) DVT prophylaxis Current Visit: Yes Status: Acute - Time Spent With Patient Total time spent is greater than 50% in coordination of care (as documented) at patient's floor/unit and/or counseling patient: - Attending Attestation I saw and evaluated the patient. I reviewed the residents note, performed my own physical examination and agree with findings and plan as documented in the residents note. Patient seen and examined on 11/15/18 at 0240. Patient presented to [facility] due to supratherapeutic INR and hemoptysis. Patient also had elevated blood sugar, and potassium. Not DKA or hyperosmotic hyperglycemic syndrome. We will continue to monitor blood sugars, continue to monitor INRs and hemoglobin as well. Patient has received one dose of vitamin K. We will follow-up with morning INR, consider giving further vitamin K. Will also give patient a small dose of Lasix due to lower extremity edema. Patient declines nicotine patch, smokes about 6 cigarettes daily.
[2018-11-14] MEDS ORDERED: D5% in Water 1,000 ML IVC PRN (20:44)
[2018-11-14] MEDS ORDERED: *HR* Dextrose 50 % in Water (Syg) 50 ML SYRINGE IVP PRN (20:44)
[2018-11-14] MEDS ORDERED: Dextrose Gel 15 GM/37.5 ML TUBE PO PRN ×2 (20:44)
[2018-11-14] MEDS ORDERED: Insulin DETEMIR 100 UNIT/ML X5UNITS SQ SCH (21:00)
[2018-11-14] MEDS ORDERED: Insulin LISPRO 300 UNITS/3 ML VIAL SQ SCH ×2 (21:00→21:22)
[2018-11-14 21:18] LABS: Prothrombin Time 118.2 Seconds (9.4-12.1)
[2018-11-14 21:19] LABS: INR 10.4
[2018-11-14 21:20] LABS: Calcium 9.4 mg/dL (8.6-10.3)
[2018-11-14] MEDS: Ipratropium/Albuterol Neb 3 ML IH SCH ×2 (21:54→23:50)
[2018-11-14] MEDS: Insulin LISPRO 300 UNITS/3 ML VIAL SQ SCH (23:12)
[2018-11-14] MEDS: Furosemide 20 MG/2 ML VIAL IVP SCH (23:28)
[2018-11-15 01:00] LABS: Calcium 9.1 mg/dL (8.6-10.3); Potassium 5.1 mEq/L (3.5-5.1)
[2018-11-15 01:02] LABS: Basophils % 0.1 %; Hematocrit 34.4 % (35.3-44.9); Hemoglobin 10.7 g/dL (11.5-15.4); Immature Granulocytes % 0.4 % (0-4); Lymphocytes # 0.6 K/mcL (0.6-4.6); Lymphocytes % 5.8 %; Mean Corpuscular HGB Conc 31.1 g/dL (31.6-35.5); Mean Corpuscular Hemoglobin 26.2 pg (28.0-33.3); Mean Corpuscular Volume 84.3 fL (83.0-100.0); Mean Platelet Volume 9.7 fL (9.4-12.4); Monocytes # 0.2 K/mcL (0.0-1.3); Monocytes % 1.8 %; Nucleated Red Blood Cells 0.8 /100 WBC (0); Platelet Count 355 K/mcL (140-400); Red Blood Count 4.08 M/mcL (3.82-4.97); Red Cell Distribution Width 16.8 % (11.5-14.5); Segmented Neutrophils % 91.9 %; White Blood Count 9.8 K/mcL (4.3-11.1)
[2018-11-15] MEDS ORDERED: Insulin Human Regular 10 UNIT in 0.9 % Sodium Chloride 10 ML IV ONE (01:03)
[2018-11-15 01:18] LABS: INR 10.4; Prothrombin Time 118.7 Seconds (9.4-12.1)
[2018-11-15] MEDS: *HR* HYDROcodone/Acet 7.5/325 mg TABLET PO PRN ×2 (01:42→14:06)
[2018-11-15] MEDS: Ipratropium/Albuterol Neb 3 ML IH SCH ×6 (03:22→23:56)
[2018-11-15] MEDS: Insulin LISPRO 300 UNITS/3 ML VIAL SQ SCH ×9 (03:29→21:36)
[2018-11-15] MEDS ORDERED: Insulin LISPRO 300 UNITS/3 ML VIAL SQ SCH (07:30)
[2018-11-15] MEDS: Furosemide 20 MG/2 ML VIAL IVP SCH (08:02)
[2018-11-15] MEDS: Metoprolol XL (24 HR) Succ 50 MG TAB.ER.24H PO SCH (08:02)
[2018-11-15] MEDS: Insulin DETEMIR 100 UNIT/ML X5UNITS SQ SCH ×2 (08:25→21:36)
[2018-11-15 08:48] LABS: Calcium 9.9 mg/dL (8.6-10.3); Potassium 4.9 mEq/L (3.5-5.1)
[2018-11-15 09:00] LABS: INR 7.8; Prothrombin Time 88.5 Seconds (9.4-12.1)
[2018-11-15] MEDS ORDERED: Doxycycline 100 MG CAPSULE PO SCH (09:00)
[2018-11-15] MEDS ORDERED: predniSONE 20 MG TABLET PO SCH (09:00)
[2018-11-15] MEDS ORDERED: EZETIMIBE PO SCH (09:00)
--- NOTE | 2018-11-15 13:57 | Cardiology Consult Note ---
<Jen Contreras Supriya - Last Filed: 11/15/18 14:27> Date of Encounter: 11/15/18 Time of Encounter: 13:30 Assessment and Plan (1) HFrEF (heart failure with reduced ejection fraction) Current Visit: Yes Status: Acute Patient presented to the ED under direction of PCP d/t supratherapeutic INR. Recent LORENA as outpatient demonstrating reduction in LVEF, 20-25% with severe global hypokinesis. Last known TTE at [facility] in 2013, LVEF 45%. Volume overload on exam, significant wheezing. BNP 848 and CXR demonstrated pulmonary vascular congestion at [place] ED. Recommend bilateral LE compression stockings. On IV lasix, 20 mg daily. EVARISTO noted, renal function previously normal. Consider Nephrology consult. Of note, patient has followed with [facility] at [place] over the past several years, Dr. Seaman. Recent lengthy admission in --records requested. Patient denies recent LHC to evaluate ischemic etiology--reports last LHC was in the . When renal function and INR will allow, recommend LHC to r/o ischemic etiology of cardiomyopathy. This can be completed as inpatient prior to d/c or outpatient. Continue BB. Recommend ACEi/ARB if renal function will allow. Strict I&Os, daily weights, Na/fluid restriction diet. Qualifiers: Heart failure chronicity: acute on chronic Qualified Code(s): I50.23 - Acute on chronic systolic (congestive) heart failure (2) Atrial fibrillation Current Visit: No Status: Chronic Patient reports longstanding hx of afib. Previously on Eliquis; developed SUZANNE thrombus while on Eliquis therefore patient was transitioned to coumadin. Hx of small GI bleed at [facility], patient has been following with Dr. Bowie in the outpatient setting for Watchman evaluation. Developed supratherapeutic INR; likely d/t antibiotics. INR 12.9 upon admission with hemoptysis. INR now 7, hemoptysis has resolved. Heart rates controlled upon exam, continue BB. Qualifiers: Atrial fibrillation type: chronic Qualified Code(s): I48.2 - Chronic atrial fibrillation (3) Supratherapeutic INR Current Visit: Yes Status: Acute INR 12.9 at [place], s/p IV vitamin K. Goal INR 2-3. Resume coumadin when INR 3 or below. Recommend pharmacy consult in addition to pharmacy dosing of coumadin. Discussion w patient/family: The assessment and plan as outlined above was discussed with the patient and/or family members who expressed understanding and agreement. All questions were answered. Thank you for involving us in the care of your patient. Please call with any questions. History of Present Illness Consult date: 11/15/18 Requesting physician: Roby Hagan Consult reason: CHF Chief complaint: Supratherapeutic INR History of present illness: Ms. Tafoya is a 67 year old female with PMHx significant of PAD, DMII, HTN, Afib, HLD, and COPD who presented as a transfer from [place] ED due to supratherapeutic INR of 12.9. Patient reports she was recently changed from Eliquis to Coumadin due to SUZANNE on Eliquis as seen on LORENA on 11/06/18. Additionally, a few days ago she was started on oral doxycycline for cough/congestion. Upon exam today, she reports chronic unchanged shortness of breath. No palpitations reported. States had an episode of hemoptysis yesterday, now resolved. Of note, she was recently referred to Dr. Bowie for watchman evaluation due small GI bleed this past March while hospitalized at [facility]. Prior CV testing: LORENA 11/06/18: LVEF 20-25%, severe global hypokinesis, mild RV dilation with moderate global dysfunction, severe biatrial dilatation, left atrial appendage thrombus. Past Med Surg Social Fam HX - Past Medical History Attestation: Yes The following information was validated with the patient. Source: patient Medical history: atrial fibrillation, COPD, diabetes, fibromyalgia, hyperlipidemia, hypertension, peripheral artery disease, seizures, other Psychiatric history: no psych history - Past Surgical History Surgical History: cholecystectomy, orthopedic, other, other, vascular surgery Additional surgical history: Stents in legs - Social History Smoking Status: Current every day smoker Packs per day: 6 cigarettes Smokeless Tobacco Status: No Alcohol use: none, rarely Drug use: none - Family History Mother Living Status: Hx Family Cardiac Disorders: Yes (History of hypertension, heart disease) Hx Family Neurologic Disorders: Yes (History of Parkinson's disease) Father Living Status: Brother Living Status: Hx Family Cancer: Yes (Liver cancer, status post liver transplant) Sister Living Status: Medications and Allergies Albuterol Sulfate [Proventil Hfa] 6.7 gm IH Q4H PRN 11/14/18 [History] Amlodipine Besylate 1 tab PO DAILY 11/14/18 [History] Atorvastatin [Lipitor] 1 tab PO DAILY 11/14/18 [History] Clopidogrel Bisulfate [Plavix] 1 tab PO DAILY 11/14/18 [History] Doxycycline Hyclate 100 mg PO BID 11/14/18 [History] Ezetimibe [Zetia] 1 tab PO DAILY 11/14/18 [History] Fluticasone Propionate Nasal [Flonase] 1 spray NS BID 11/14/18 [History] HYDROcodone/Acet 7.5/325 mg [Vendor 7.5-325 mg] 1 tab PO Q4-6H PRN 11/14/18 [History] Insulin ASPART [Novolog Flexpen] 12 units SQ QID 11/14/18 [History] Insulin Glargine,Hum.rec.anlog [Lantus Solostar] 60 unit SQ HS 11/14/18 [History] Ipratropium/Albuterol Neb [Duoneb] 1 inh PO QID 11/14/18 [History] Linagliptin [Tradjenta] 1 tab PO DAILY 11/14/18 [History] Losartan Potassium 1 tab PO DAILY 11/14/18 [History] Metoprolol Succinate [Toprol Xl] 100 mg PO DAILY 11/14/18 [History] Pantoprazole Sodium [Protonix] 40 mg PO DAILY 11/14/18 [History] Potassium Chloride [K-Tab ER] 20 meq PO BID 11/14/18 [History] Prednisone 60 mg PO DAILY 11/14/18 [History] Promethazine [Phenergan] 25 mg PO Q12H PRN 11/14/18 [History] Tizanidine HCl 2 mg PO BID 11/14/18 [History] Umeclidinium Brm/Vilanterol Tr [Anoro Ellipta 62.5-25 Mcg INH] 1 puff PO DAILY 11/14/18 [History] Warfarin [Coumadin] 5 mg PO 1800 11/14/18 [History] metFORMIN [Glucophage] 1,000 mg PO BID 11/14/18 [History] Allergy/AdvReac Type Severity Reaction Status Date / Time Amoxicillin [From Trimox] Allergy Rash Verified 04/03/19 11:46 Penicillins AdvReac See Verified 05/30/18 11:46 Comments All Systems Review: The remainder of the systems were reviewed and are negative - Cardiovascular Cardiovascular: as per HPI Physical Examination Vital Signs, Last 4 Hours Temp Pulse Resp BP Pulse Ox 11/15/18 11:45 98.0 F 79 20 144/75 100 11/15/18 11:35 18 96 General: Conversant, Other (appears chronically ill) HEENT: Atraumatic, Normocephaly Cardiac: Other (irregularly irregular) Lungs: Other (significant wheezing throughout) Neuro: Alert and responsive Abdomen: Soft Skin: No rashes noted on visualized skin Musculoskeletal: No Chest Wall Tenderness Extremities: Other (+2-3 BLE edema to knees) Results 11/15/18 00:15 11/15/18 08:15 Lab Results 11/14/18 11/14/18 11/15/18 20:46 20:46 00:15 WBC Hgb Hct Plt Count INR 10.4 H* Sodium 129 L Potassium 5.0 Chloride 92 L Carbon Dioxide 27 BUN 32 H Creatinine 1.33 H Glucose 516 H* Calcium 9.4 Troponin I 0.03 11/15/18 11/15/18 11/15/18 00:15 00:15 00:15 WBC 9.8 Hgb 10.7 L Hct 34.4 L Plt Count 355 INR 10.4 H* Sodium 128 L Potassium 5.1 Chloride 92 L Carbon Dioxide 24 BUN 32 H Creatinine 1.29 H Glucose 543 H* Calcium 9.1 Troponin I 11/15/18 11/15/18 08:15 08:15 WBC Hgb Hct Plt Count INR 7.8 H* Sodium 130 L Potassium 4.9 Chloride 91 L Carbon Dioxide 27 BUN 33 H Creatinine 1.36 H Glucose 340 H Calcium 9.9 Troponin I Active Medications Hydrocodone Bitart/Acetaminophen (Vendor 7.5-325 Mg) 1 tab PO Q4H PRN PRN Reason: Pain Stop: 05/16/19 23:27 Last Admin: 11/15/18 14:06 Dose: 1 tab Documented by: Albuterol/Ipratropium (Duoneb) 3 ml IH [id number] [facility] Stop: 05/16/19 20:46 Last Admin: 11/15/18 11:35 Dose: 3 ml Documented by: Clopidogrel Bisulfate (Plavix) 75 mg PO DAILY [facility] Stop: 05/17/19 09:01 Last Admin: 11/15/18 08:02 Dose: 75 mg Documented by: Dextrose/Water (Dextrose 50% (Syg)) 25 ml IVP AD PRN PRN Reason: Hypoglycemia Stop: 05/16/19 20:45 Furosemide (Lasix) 20 mg IVP DAILY [facility] Stop: 05/16/19 23:16 Last Admin: 11/15/18 08:02 Dose: 20 mg Documented by: Glucagon (Glucagen) 1 mg IM ONCE PRN PRN Reason: Hypoglycemia Stop: 05/16/19 20:45 Glucose (Gluctose) 15 gm PO ONCE PRN PRN Reason: Hypoglycemia Stop: 05/16/19 20:45 Glucose (Gluctose) 30 gm PO ONCE PRN PRN Reason: Hypoglycemia Stop: 05/16/19 20:45 Dextrose (Dextrose 5%) 1,000 mls @ 100 mls/hr IVC .Q10H PRN PRN Reason: HYPOGLYCEMIA Stop: 05/16/19 20:45 Insulin Detemir (Levemir) 15 unit SQ BID [facility] Stop: 05/17/19 09:01 Last Admin: 11/15/18 08:25 Dose: 15 unit Documented by: Insulin Human Lispro (Humalog) 0 units SQ TIDWM [facility]; Protocol Stop: 05/17/19 08:01 Last Admin: 11/15/18 12:01 Dose: 16 units Documented by: Insulin Human Lispro (Humalog) 5 units SQ TIDWM [facility] Stop: 05/17/19 08:01 Last Admin: 11/15/18 12:02 Dose: 5 units Documented by: Metoprolol Succinate (Toprol Xl) 100 mg PO DAILY [facility] Stop: 05/17/19 09:01 Last Admin: 11/15/18 08:02 Dose: 100 mg Documented by: Naloxone HCl (Narcan) 0.4 mg IVP Q2MPRN PRN PRN Reason: SEE COMMENTS Stop: 05/16/19 20:40 Non-Formulary Medication (Ezetimibe [Zetia]) 1 tab PO DAILY [facility] Stop: 05/17/19 09:01 Non-Formulary Medication (Umeclidinium Brm/Vilanterol Tr [Anoro Ellipta 62.5-25 Mcg Inh]) 1 puff PO DAILY [facility] Stop: 05/17/19 09:01 Prednisone (Prednisone) 40 mg PO DAILY [facility] Stop: 05/17/19 09:01 Last Admin: 11/15/18 08:02 Dose: 40 mg Documented by: - Imaging and Cardiology Echo: report reviewed Other Results: 12 hour tele: avg HR=80 afib. - EKG Interpretation EKG results cardiology: personally reviewed Consult Discharge Plan - Plan Referrals: Marielle Wang, HORSE BUYER [Primary Care Provider] - <Keron Goodwin - Last Filed: 11/15/18 15:22> Date of Encounter: 11/15/18 - Attending Attestation I have personally performed a face to face evaluation on this patient. I have reviewed and agree with the care plan. History and Exam by me shows: Admitted with supratherapeutic INR, currently undergoing trial of anticoagulation for possible Watchman. Noted to have cardiomyopathy of unclear etiology. Will need to review records, may need ischemic evaluation if one hasn't been done. Assessment and Plan Discussion w patient/family: The assessment and plan as outlined above was discussed with the patient and/or family members who expressed understanding and agreement. All questions were answered. Thank you for involving us in the care of your patient. Please call with any questions. History of Present Illness History of present illness: Ms. Tafoya is a 67 year old female All Systems Review: The remainder of the systems were reviewed and are negative Physical Examination Vital Signs, Last 4 Hours Temp Pulse Resp BP Pulse Ox 11/15/18 11:45 98.0 F 79 20 144/75 100 11/15/18 11:35 18 96 Results 11/15/18 00:15 11/15/18 08:15 Lab Results 11/14/18 11/14/18 11/15/18 20:46 20:46 00:15 WBC Hgb Hct Plt Count INR 10.4 H* Sodium 129 L Potassium 5.0 Chloride 92 L Carbon Dioxide 27 BUN 32 H Creatinine 1.33 H Glucose 516 H* Calcium 9.4 Troponin I 0.03 11/15/18 11/15/18 11/15/18 00:15 00:15 00:15 WBC 9.8 Hgb 10.7 L Hct 34.4 L Plt Count 355 INR 10.4 H* Sodium 128 L Potassium 5.1 Chloride 92 L Carbon Dioxide 24 BUN 32 H Creatinine 1.29 H Glucose 543 H* Calcium 9.1 Troponin I 11/15/18 11/15/18 08:15 08:15 WBC Hgb Hct Plt Count INR 7.8 H* Sodium 130 L Potassium 4.9 Chloride 91 L Carbon Dioxide 27 BUN 33 H Creatinine 1.36 H Glucose 340 H Calcium 9.9 Troponin I
--- NOTE | 2018-11-15 15:53 | Internal Med Progress Note ---
Hospitalist Progress Note - Encounter Date of Encounter: 11/15/18 Time of Encounter: 15:51 - Subjective Interval History: I have seen and evaluated the patient at bedside. patient reported shortness of breath, denies chest pain. reported productive cough but denies hemoptysis. reported having a BM but denies seeing blood in the stool. - Exam Vitals: Temp Pulse Resp BP Pulse Ox 98.0 F 79 20 144/75 100 11/15/18 11:45 11/15/18 11:45 11/15/18 11:45 11/15/18 11:45 11/15/18 11:45 Exam: Vitals: Reviewed General: Alert and oriented x4. In mild distress due to shortness of breath. Skin: Normal color, no rash, no lesions. HEENT: EOM, pupils equal, round and reactive. Cardiovascular: RRR, normal S1 & S2, no rubs, murmurs or gallops. Lungs: Scattered bilateral wheezes, no crackles. Abdomen: Obese, soft, non-tender, no rigidity. Extremities: 2-3+ pitting edema. Neurological: Normal cognition and motor skills. Rest of the physical exam is non contributory - Assessment and Plan (1) Acute exacerbation of chronic obstructive airways disease Current Visit: No Status: Acute Assessment and Plan: patient with scattered b/l wheezing on auscultation. dc oral steroid started on methuyl-prednisolone 40mg/IV BID empirically on azithromycin 500mg/PO daily urine for atypical organism ordered sputum culture and gram stain On Spiriva. (2) Acute on chronic HFrEF (heart failure with reduced ejection fraction) Current Visit: Yes Status: Acute Assessment and Plan: patient volume overloaded. Increase furosemide to 40mg/IV daily. strict intake and output, plus daily weight fluids restriction to 1.5 litters a day cardiology consulted, patient with severe chf. last estimated EF in the 20s. on a bb ACEs on hold due to EVARISTO. (3) Supratherapeutic INR Current Visit: Yes Status: Acute Assessment and Plan: Patient with no signs of active bleeding. Received Vitamin K at an outside facility. plan continue to hold warfarin will re-check INR tomorrow morning. (4) Hemoptysis Current Visit: No Status: Resolved (5) EVARISTO (acute kidney injury) Current Visit: Yes Status: Acute Assessment and Plan: likely due to acut chf exacerbation. will recheck kidney function tomorrow morning. continue IV diuretics and avoid nephrotoxic medications. (6) Lactic acidosis Current Visit: No Status: Acute Assessment and Plan: Possible secondary to low perfusion in the setting severe chf with acute exacerbation. will repeat lactic acid tomorrow morning. 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 anticolagulated on warfarin, held due to supra-therapeutic inr. (8) Atrial fibrillation Current Visit: No Status: Chronic Assessment and Plan: rate controlled on a bb. (9) Diabetes mellitus Current Visit: No Status: Chronic Assessment and Plan: uncontrolled diabetes. levemir increased to 15 units bid, plus lispro 5 units ac. carbs controlled diet. (10) Tobacco use Current Visit: No Status: Chronic (11) PAD (peripheral artery disease) Current Visit: No Status: Chronic Assessment and Plan: patient s/p right to left femoral-femoral bypass graft with 6 mm PTFE on 05/29/18. c/w plavix. DVT Prophylaxis: intermittent pneumatic compression for dvt prophylaxis. - Summary of Assessment and Plan Summary of Assessment and Plan: Patient to remain in the hospital due to acute chf exacerbation. - Time Spent with Patient Total time spent is greater than 50% in coordination of care (as documented) at patient's floor/unit and/or counseling patient: Greater than 35 minutes (45) Plan of Care Discussed with: patient Internal Medicine: Result - Labs CBC & Chem 7: 11/15/18 00:15 11/15/18 08:15 Labs: Short CBC 11/15/18 Range/Units 00:15 WBC 9.8 (4.3-11.1) K/mcL Hgb 10.7 L (11.5-15.4) g/dL Hct 34.4 L (35.3-44.9) % Plt Count 355 (140-400) K/mcL Neutrophils # 9.0 H (1.6-8.9) K/mcL BMP 11/14/18 11/15/18 11/15/18 20:46 00:15 08:15 Sodium 129 L 128 L 130 L Potassium 5.0 5.1 4.9 Chloride 92 L 92 L 91 L Carbon Dioxide 27 24 27 BUN 32 H 32 H 33 H Creatinine 1.33 H 1.29 H 1.36 H Glucose 516 H* 543 H* 340 H Calcium 9.4 9.1 9.9 Cardiac Enzymes 11/15/18 Range/Units 00:15 Troponin I 0.03 (< 0.04) ng/mL - ABG Interpretation ABG results: PT/INR, D-dimer PT 88.5 Seconds (9.4-12.1) H* 11/15/18 08:15 Consult Discharge Plan - Plan Referrals: Marielle Wang, SUPERVISOR [employer] PROCESSING [Primary Care Provider] - (8) Atrial fibrillation Qualifiers: Atrial fibrillation type: chronic Qualified Code(s): I48.2 - Chronic atrial fibrillation (9) Diabetes mellitus Qualifiers: Diabetes mellitus type: type 2 Diabetes mellitus longwall shearer operator insulin use: with fdc use Diabetes mellitus complication status: with hyperglycemia Qualified Code(s): E11.65 - Type 2 diabetes mellitus with hyperglycemia; Z79.4 - board winder (current) use of insulin
[2018-11-15] MEDS: MethylPREDNISolone 40 MG/ML VIAL IVP SCH (17:05)
[2018-11-15] MEDS: Azithromycin 250 MG TABLET PO SCH (17:05)
[2018-11-16] MEDS: Ipratropium/Albuterol Neb 3 ML IH SCH ×6 (03:17→23:14)
[2018-11-16] MEDS: *HR* HYDROcodone/Acet 7.5/325 mg TABLET PO PRN ×4 (03:55→22:24)
[2018-11-16 04:59] LABS: Basophils % 0.1 %; Hematocrit 34.7 % (35.3-44.9); Hemoglobin 10.7 g/dL (11.5-15.4); Immature Granulocytes % 0.7 % (0-4); Lymphocytes # 0.5 K/mcL (0.6-4.6); Lymphocytes % 2.4 %; Mean Corpuscular HGB Conc 30.8 g/dL (31.6-35.5); Mean Corpuscular Hemoglobin 25.9 pg (28.0-33.3); Mean Platelet Volume 9.5 fL (9.4-12.4); Monocytes # 0.9 K/mcL (0.0-1.3); Monocytes % 4.7 %; Neutrophils # 17.3 K/mcL (1.6-8.9); Nucleated Red Blood Cells 0.4 /100 WBC (0); Platelet Count 299 K/mcL (140-400); Red Blood Count 4.13 M/mcL (3.82-4.97); Red Cell Distribution Width 16.7 % (11.5-14.5); Segmented Neutrophils % 92.1 %
[2018-11-16 05:00] LABS: White Blood Count 18.8 K/mcL (4.3-11.1)
[2018-11-16 05:08] LABS: INR 1.9; Prothrombin Time 21.8 Seconds (9.4-12.1)
[2018-11-16] MEDS: MethylPREDNISolone 40 MG/ML VIAL IVP SCH ×2 (05:13→17:30)
[2018-11-16 05:19] LABS: Albumin 3.6 g/dL (3.5-5.7); Albumin/Globulin Ratio 1.3 (1.1-2.2); Bilirubin,Total 0.7 mg/dL (0.3-1.0); Calcium 9.2 mg/dL (8.6-10.3); Globulin 2.7 g/dL (2.4-3.5); Magnesium 1.7 mg/dL (1.6-2.6); Phosphorous 3.4 mg/dL (2.7-4.5); Potassium 4.9 mEq/L (3.5-5.1); Total Protein 6.3 g/dL (6.4-8.9)
[2018-11-16] MEDS: Tiotropium 18 MCG inhalation IH SCH (07:19)
[2018-11-16] MEDS ORDERED: *HR* Heparin 5,000 UNIT/ML VIAL IVP PRN ×2 (07:36)
[2018-11-16] MEDS ORDERED: *HR* Heparin 5,000 UNIT/ML VIAL IVP ONE (07:36)
[2018-11-16] MEDS ORDERED: Furosemide 40 MG/4 ML VIAL IVP SCH (09:00)
[2018-11-16] MEDS: Metoprolol XL (24 HR) Succ 50 MG TAB.ER.24H PO SCH (09:07)
[2018-11-16] MEDS: Azithromycin 250 MG TABLET PO SCH (09:07)
[2018-11-16] MEDS: Insulin LISPRO 300 UNITS/3 ML VIAL SQ SCH ×8 (09:09→20:59)
[2018-11-16] MEDS: Insulin DETEMIR 100 UNIT/ML X5UNITS SQ SCH ×2 (09:11→20:59)
[2018-11-16] MEDS: Heparin 25,000 UNIT/250 ML D5W 25,000 UNIT/250 ML IV.SOLN IVC SCH (09:12)
[2018-11-16 09:37] LABS: Hemoglobin 11.3 g/dL (11.5-15.4); Mean Corpuscular HGB Conc 31.4 g/dL (31.6-35.5); Mean Corpuscular Hemoglobin 26.2 pg (28.0-33.3); Mean Corpuscular Volume 83.5 fL (83.0-100.0); Mean Platelet Volume 9.7 fL (9.4-12.4); Platelet Count 349 K/mcL (140-400); Red Blood Count 4.31 M/mcL (3.82-4.97); Red Cell Distribution Width 16.7 % (11.5-14.5)
[2018-11-16 09:46] LABS: INR 1.7; Prothrombin Time 18.8 Seconds (9.4-12.1)
[2018-11-16 09:48] LABS: Heparin anti-factor XA UFH 0.06 IU/mL (0.30-0.70)
--- NOTE | 2018-11-16 10:58 | Cardiology Progress Note ---
Date of Encounter: 11/16/18 Time of Encounter: 10:30 Assessment and Plan (1) HFrEF (heart failure with reduced ejection fraction) Current Visit: Yes Status: Acute Patient presented to the ED under direction of PCP d/t supratherapeutic INR. Recent LORENA as outpatient demonstrating reduction in LVEF, 20-25% with severe global hypokinesis. Last known TTE at [facility] in 2013, LVEF 45%. Volume overload on exam, significant wheezing. BNP 848 and CXR demonstrated pulmonary vascular congestion at [place] [facility]. Recommend bilateral LE compression stockings. On IV lasix, 20 mg daily. EVARISTO noted, renal function previously normal. Consider Nephrology consult. Cumulative I&O: +560 mL. ? accuracy. Order placed, again, for strict I&Os. Of note, patient has followed with Geometrician at [place] over the past several years, Dr. Seaman. Recent lengthy admission in --records requested--have yet to receive. Today, patient reports LHC during that admission. Will await records to determine if patient had LHC; if not, recommend prior to d/c if renal function/respiratory status will allow. Can also be completed in the outpatient setting. Continue BB. Recommend ACEi/ARB if renal function will allow. Strict I&Os, daily weights, Na/fluid restriction diet. Qualifiers: Heart failure chronicity: acute on chronic Qualified Code(s): I50.23 - Acute on chronic systolic (congestive) heart failure (2) Atrial fibrillation Current Visit: No Status: Chronic Patient reports longstanding hx of afib. Previously on Eliquis; developed SUZANNE thrombus while on Eliquis therefore patient was transitioned to coumadin. Hx of small GI bleed at [facility], patient has been following with Dr. Bowie in the outpatient setting for Watchman evaluation. Developed supratherapeutic INR; likely d/t antibiotics. INR 12.9 upon admission with hemoptysis. INR now 1.9, patient started on IV heparin gtt as bridge--d/c gtt when INR >2.0, hemoptysis has resolved. Coumadin per pharmacy dosing. Heart rates controlled upon exam, continue BB. Qualifiers: Atrial fibrillation type: chronic Qualified Code(s): I48.2 - Chronic atrial fibrillation Discussion w patient/family: The assessment and plan as outlined above was discussed with the patient and/or family members who expressed understanding and agreement. All questions were answered. Thank you for involving us in the care of your patient. Please call with any questions. The patient will be discussed and reviewed with Dr. Goodwin; changes to be made accordingly. Subjective Principal diagnosis: Supratherapeutic INR, CHF Interval history: Seen and examined. No new CV complaints upon exam. Patient is more alert today. Up to bedside chair. Objective Vital Signs, Last 4 Hours Temp Pulse Resp BP Pulse Ox 11/16/18 08:01 15 99 11/16/18 07:28 97.8 F 100 20 168/100 95 General: Conversant HEENT: Atraumatic, Normocephaly Cardiac: Other (irregularly irregular) Lungs: Other (wheezing throughout) Neuro: Alert and responsive Abdomen: Soft Skin: No rashes noted on visualized skin Musculoskeletal: No Chest Wall Tenderness Extremities: Other (+1-2 BLE edema) Results 11/16/18 09:25 11/16/18 04:48 Lab Results 11/16/18 11/16/18 11/16/18 04:48 04:48 04:48 WBC 18.8 H D Hgb 10.7 L Hct 34.7 L Plt Count 299 INR 1.9 D Sodium 131 L Potassium 4.9 Chloride 96 L Carbon Dioxide 27 BUN 36 H Creatinine 1.31 H Glucose 331 H Calcium 9.2 Magnesium 1.7 Total Bilirubin 0.7 AST 21 ALT 27 Alkaline Phosphatase 84 11/16/18 11/16/18 09:25 09:25 WBC 21.0 H Hgb 11.3 L Hct 36.0 Plt Count 349 INR 1.7 Sodium Potassium Chloride Carbon Dioxide BUN Creatinine Glucose Calcium Magnesium Total Bilirubin AST ALT Alkaline Phosphatase Active Medications Hydrocodone Bitart/Acetaminophen ([place] 7.5-325 Mg) 1 tab PO Q4H PRN PRN Reason: Pain Stop: 05/16/19 23:27 Last Admin: 11/16/18 09:36 Dose: 1 tab Documented by: Albuterol/Ipratropium (Duoneb) 3 ml IH [id number] [facility] Stop: 05/16/19 20:46 Last Admin: 11/16/18 07:18 Dose: 3 ml Documented by: Azithromycin (Zithromax) 500 mg PO DAILY [facility] Stop: 05/17/19 15:46 Last Admin: 11/16/18 09:07 Dose: 500 mg Documented by: Clopidogrel Bisulfate (Plavix) 75 mg PO DAILY [facility] Stop: 05/17/19 09:01 Last Admin: 11/16/18 09:08 Dose: 75 mg Documented by: Dextrose/Water (Dextrose 50% (Syg)) 25 ml IVP AD PRN PRN Reason: Hypoglycemia Stop: 05/16/19 20:45 Furosemide (Lasix) 40 mg IVP DAILY [facility] Stop: 05/18/19 09:01 Last Admin: 11/16/18 09:08 Dose: 40 mg Documented by: Glucagon (Glucagen) 1 mg IM ONCE PRN PRN Reason: Hypoglycemia Stop: 05/16/19 20:45 Glucose (Gluctose) 15 gm PO ONCE PRN PRN Reason: Hypoglycemia Stop: 05/16/19 20:45 Glucose (Gluctose) 30 gm PO ONCE PRN PRN Reason: Hypoglycemia Stop: 05/16/19 20:45 Heparin Sodium (Porcine) (Heparin) 5,600 unit 70 unit/kg (5600 unit) IVP Q6HR PRN PRN Reason: SEE COMMENTS Stop: 05/18/19 07:37 Heparin Sodium (Porcine) (Heparin) 2,800 unit 35 unit/kg (2800 unit) IVP Q6H PRN PRN Reason: SEE COMMENTS Stop: 05/18/19 07:37 Dextrose (Dextrose 5%) 1,000 mls @ 100 mls/hr IVC .Q10H PRN PRN Reason: HYPOGLYCEMIA Stop: 05/16/19 20:45 Heparin Sodium/Dextrose (Heparin 25,000 Unit/250 Ml D5w) 25,000 unit in 250 mls @ 11.284 mls/hr IVC .[id number] [facility]; Protocol Stop: 05/18/19 07:46 Last Admin: 11/16/18 09:12 Dose: 14 unit/kg/hr, 11.3 mls/hr Documented by: Insulin Detemir (Levemir) 20 unit SQ BID [facility] Stop: 05/18/19 09:01 Last Admin: 11/16/18 09:11 Dose: 20 unit Documented by: Insulin Human Lispro (Humalog) 0 units SQ TIDWM [facility]; Protocol Stop: 05/17/19 08:01 Last Admin: 11/16/18 09:09 Dose: 14 units Documented by: Insulin Human Lispro (Humalog) 0 units SQ HS [facility]; Protocol Stop: 05/17/19 21:01 Last Admin: 11/15/18 21:36 Dose: 5 units Documented by: Insulin Human Lispro (Humalog) 8 units SQ TIDWM [facility] Stop: 05/18/19 08:01 Last Admin: 11/16/18 09:10 Dose: 8 units Documented by: Methylprednisolone (Solu-Medrol) 40 mg IVP Q12HR [facility] Stop: 05/17/19 18:01 Last Admin: 11/16/18 05:13 Dose: 40 mg Documented by: Metoprolol Succinate (Toprol Xl) 100 mg PO DAILY [facility] Stop: 05/17/19 09:01 Last Admin: 11/16/18 09:07 Dose: 100 mg Documented by: Naloxone HCl (Narcan) 0.4 mg IVP Q2MPRN PRN PRN Reason: SEE COMMENTS Stop: 05/16/19 20:40 Tiotropium [place] (Spiriva) 18 mcg IH DAILYR [facility] Stop: 05/18/19 10:01 Last Admin: 11/16/18 07:19 Dose: 18 mcg Documented by: Warfarin Sodium (Coumadin Perpt) 1 each PO DAILY@1800 [facility]; Protocol Stop: 05/18/19 18:01 Warfarin Sodium (Coumadin) 2.5 mg PO 1800 [facility]; Protocol Stop: 11/16/18 18:01 - Imaging and Cardiology Echo: report reviewed Other Results: 12 hour tele: avg HR=86 afib. 3 beat NSVT - EKG Interpretation EKG results cardiology: personally reviewed Consult Discharge Plan - Plan Referrals: Marielle Wang ORTHOTICS PROSTHETICS TECHNICIAN [Primary Care Provider] - CHADS2-VASC Score - Score Age: 65-74 Sex: Female CHF History: Yes Hypertension history: Yes Stroke/TIA/Thromboembolism Hx: No Vascular disease history: Yes Diabetes history: Yes Score: 6 HAS-BLED Score - Score Bleeding: Prior major bleeding or predisposition to bleeding Labile INR: Unstable/high INR, Time in therapeutic range <60% Elderly: Age>65 years Medication usage predisposing to bleeding: Antiplatelet agents, NSAIDs, Anticoagulants Score: 4 NYHAC - Classification Classification: Class 3
--- NOTE | 2018-11-16 11:11 | Electrocardiograph Report ---
[place] [id number] Test Date: 2018-11-16 Pat Name: Audrey Tafoya Department: 111 Room: 2N8 Gender: F Web Weaver: Raw : 1950 Requested By: Haim Acevedo Order Number: [id number] Reading MD: Keron Goodwin Measurements Intervals [place] Rate: 80 P: MD: 0 QRS: 163 QRSD: 96 T: -60 QT: 376 QTc: 412 Interpretive Statements ATRIAL FIBRILLATION RIGHT VENTRICULAR HYPERTROPHY ABNORMAL R WAVE PROGRESSION INFERIOR T WAVE CHANGES Electronically Signed On 11-16-2018 11:09:59 EDT by Keron Goodwin
--- NOTE | 2018-11-16 13:55 | Internal Med Progress Note ---
Hospitalist Progress Note - Encounter Date of Encounter: 11/16/18 Time of Encounter: 13:57 - Subjective Interval History: I have seen and evaluated the patient at bedside. Patient report slightly improvement on her breathing. reported productive cough but denies hemoptysis. denies chest pain, nausea or vomiting. - Exam Vitals: Temp Pulse Resp BP Pulse Ox 97.8 F 78 20 165/80 95 11/16/18 12:57 11/16/18 12:57 11/16/18 12:57 11/16/18 12:57 11/16/18 12:57 Exam: Vitals: Reviewed General: Alert and oriented x4. In mild distress distress due to shortness of breath. Cardiovascular: RRR, normal S1 & S2, no rubs, murmurs or gallops. Lungs: b/l expiratory wheezes b/l, mild crackles at the bases b/l. Abdomen: Obese, soft, non-tender, no rigidity. Extremities: 2-3+ pitting edema. Neurological: Normal cognition and motor skills. Rest of the physical exam is non contributory - Assessment and Plan (1) Acute exacerbation of chronic obstructive airways disease Current Visit: No Status: Acute Assessment and Plan: patient continues to report shortness of breath, b/l expiratory wheezing. sputum culture: preliminary report, growing gram negative rods Plan: will broaden antibiotic. c/w azithromycin 500mg/PO daily ceftriaxone 1gm/IV daily added c/w methyl-prednisolone 40mg/IV BID on bronchodilators scheduled Q4RT. On spiriva. incentive spirometry (2) Acute on chronic HFrEF (heart failure with reduced ejection fraction) Current Visit: Yes Status: Acute Assessment and Plan: patient volume overloaded. with a positive balance of 590.1ml. Plan strict intake and out fluids restriction to 1.5 litters a day on a bb increase furosemide to 40mg/IV BID ACEs held due to EVARISTO. cardiology recommendations appreciated. (3) EVARISTO (acute kidney injury) Current Visit: Yes Status: Acute Assessment and Plan: EVARISTO likely due to acute chf exacerbation. c/w IV diuretics avoid nephrotoxic medications will reassess kidney function tomorrow morning. 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 started on a heparin drip. warfarin per pharmacy protocol. (5) Atrial fibrillation Current Visit: No Status: Chronic Assessment and Plan: Rate controlled on a bb. INR not therapeutic. started on a heparin drip as a bridge for secondary stroke prevention. On warfarin per phamacy protocol. (6) Diabetes mellitus Current Visit: No Status: Chronic Assessment and Plan: blood sugar is sub-optimally controlled. Plan levemir increased to 20 units BID, and lispro increased to 8 units ac. c/w carbs controlled diet. (7) Tobacco use Current Visit: No Status: Chronic (8) PAD (peripheral artery disease) Current Visit: No Status: Chronic Assessment and Plan: patient s/p right to left femoral-femoral bypass graft with 6 mm PTFE on 05/29/18. Plan On plavix. (9) Supratherapeutic INR Current Visit: Yes Status: Resolved (10) Lactic acidosis Current Visit: No Status: Resolved (11) Hemoptysis Current Visit: No Status: Resolved (12) Pneumonia Current Visit: No Status: Suspected Assessment and Plan: plan of care as per problem #1. DVT Prophylaxis: Intermittent pneumatic compression for dvt prophylaxis. - Summary of Assessment and Plan Summary of Assessment and Plan: patient to remain in the hospital due to acute chf exacerbation, on IV diuretics. - Time Spent with Patient Total time spent is greater than 50% in coordination of care (as documented) at patient's floor/unit and/or counseling patient: Greater than 35 minutes (40) Plan of Care Discussed with: patient (and the nurse.) Internal Medicine: Result - Labs CBC & Chem 7: 11/16/18 09:25 11/16/18 04:48 Labs: Short CBC 11/16/18 11/16/18 Range/Units 04:48 09:25 WBC 18.8 H D 21.0 H (4.3-11.1) K/mcL Hgb 10.7 L 11.3 L (11.5-15.4) g/dL Hct 34.7 L 36.0 (35.3-44.9) % Plt Count 299 349 (140-400) K/mcL Neutrophils # 17.3 H (1.6-8.9) K/mcL BMP 11/16/18 04:48 Sodium 131 L Potassium 4.9 Chloride 96 L Carbon Dioxide 27 BUN 36 H Creatinine 1.31 H Glucose 331 H Calcium 9.2 Liver Function 11/16/18 Range/Units 04:48 Total Bilirubin 0.7 (0.3-1.0) mg/dL AST 21 (13-39) Units/L ALT 27 (7-52) Units/L Alkaline Phosphatase 84 (34-104) Units/L Albumin 3.6 (3.5-5.7) g/dL - ABG Interpretation ABG results: PT/INR, D-dimer PT 18.8 Seconds (9.4-12.1) H 11/16/18 09:25 Consult Discharge Plan - Plan Referrals: Marielle Wang, [employer] [Primary Care Provider] - (5) Atrial fibrillation Qualifiers: Atrial fibrillation type: chronic Qualified Code(s): I48.2 - Chronic atrial fibrillation (6) Diabetes mellitus Qualifiers: Diabetes mellitus type: type 2 Diabetes mellitus intermodal owner operator truck driver insulin use: with intermodal owner operator truck driver use Diabetes mellitus complication status: with hyperglycemia Qualified Code(s): E11.65 - Type 2 diabetes mellitus with hyperglycemia; Z79.4 - intermodal owner operator truck driver (current) use of insulin (12) Pneumonia Qualifiers: Pneumonia type: due to unspecified organism Laterality: unspecified laterality Lung location: unspecified part of lung Qualified Code(s): J18.9 - Pneumonia, unspecified organism
[2018-11-16] MEDS: cefTRIAXone 1,000 MG in Water for inj. (sterile) 10 ML IVP SCH (17:29)
[2018-11-16] MEDS: Furosemide 40 MG/4 ML VIAL IVP SCH (17:30)
[2018-11-16] MEDS ORDERED: Warfarin perPT PO SCH (18:00)
[2018-11-16] MEDS ORDERED: *HR* Warfarin 2.5 MG TABLET PO ONE (18:00)
[2018-11-17] MEDS: *HR* HYDROcodone/Acet 7.5/325 mg TABLET PO PRN ×5 (03:11→22:36)
[2018-11-17] MEDS: Ipratropium/Albuterol Neb 3 ML IH SCH ×6 (03:46→23:31)
[2018-11-17] MEDS: MethylPREDNISolone 40 MG/ML VIAL IVP SCH (06:06)
[2018-11-17 06:26] LABS: Basophils % 0.1 %; Hematocrit 35.3 % (35.3-44.9); Hemoglobin 10.8 g/dL (11.5-15.4); Immature Granulocytes % 1.1 % (0-4); Lymphocytes # 0.6 K/mcL (0.6-4.6); Lymphocytes % 3.4 %; Mean Corpuscular HGB Conc 30.6 g/dL (31.6-35.5); Mean Corpuscular Hemoglobin 25.8 pg (28.0-33.3); Mean Corpuscular Volume 84.4 fL (83.0-100.0); Mean Platelet Volume 9.2 fL (9.4-12.4); Monocytes # 1.2 K/mcL (0.0-1.3); Monocytes % 6.9 %; Neutrophils # 15.1 K/mcL (1.6-8.9); Nucleated Red Blood Cells 0.7 /100 WBC (0); Platelet Count 288 K/mcL (140-400); Red Blood Count 4.18 M/mcL (3.82-4.97); Red Cell Distribution Width 16.8 % (11.5-14.5); Segmented Neutrophils % 88.5 %
[2018-11-17 06:41] LABS: INR 1.7; Prothrombin Time 19.7 Seconds (9.4-12.1)
[2018-11-17 06:44] LABS: BUN/Creatinine Ratio 34 (6-26); Blood Urea Nitrogen 36 mg/dL (8-23); Calcium 9.3 mg/dL (8.6-10.3); Carbon Dioxide 35 mEq/L (23-29); Chloride 93 mEq/L (98-107); Glucose 223 mg/dL (70-105); Magnesium 1.8 mg/dL (1.6-2.6); Osmolality,Calculated 297 (280-300); Phosphorous 3.7 mg/dL (2.7-4.5); Potassium 4.1 mEq/L (3.5-5.1); Sodium 136 mEq/L (136-145); eGFR For African Americans > 60 (> 60); eGFR For Non-African Americans 52 (> 60)
[2018-11-17] MEDS: Tiotropium 18 MCG inhalation IH SCH (07:36)
[2018-11-17] MEDS: Metoprolol XL (24 HR) Succ 50 MG TAB.ER.24H PO SCH (09:24)
[2018-11-17] MEDS: Furosemide 40 MG/4 ML VIAL IVP SCH ×2 (09:25→16:57)
[2018-11-17] MEDS: Heparin 25,000 UNIT/250 ML D5W 25,000 UNIT/250 ML IV.SOLN IVC SCH (09:25)
[2018-11-17] MEDS: Insulin DETEMIR 100 UNIT/ML X5UNITS SQ SCH (09:25)
[2018-11-17] MEDS: Insulin LISPRO 300 UNITS/3 ML VIAL SQ SCH ×7 (09:25→21:28)
[2018-11-17] MEDS ORDERED: metOLazone 5 MG TABLET PO ONE (10:51)
--- NOTE | 2018-11-17 10:55 | Internal Med Progress Note ---
Hospitalist Progress Note - Encounter Date of Encounter: 11/17/18 Time of Encounter: 10:52 - Subjective Interval History: I have seen and evaluated the patient at bedside. Patient reported feeling better today, but still mildly short of breath. continues to report productive cough. denies nausea or vomiting. denies abdominal pain or chest pain. - Exam Vitals: Temp Pulse Resp BP Pulse Ox 97.6 F 87 18 140/80 94 11/17/18 03:10 11/17/18 07:23 11/17/18 07:34 11/17/18 07:23 11/17/18 07:34 Exam: Vitals: Reviewed General: Alert and oriented x4. In no distress Cardiovascular: RRR, normal S1 & S2, no rubs, murmurs or gallops. Lungs: mild b/l expiratory wheezes, no rales or crackles. Abdomen: Obese, soft, non-tender, no rigidity. NABS in all 4 quadrants Extremities: 2-3+ pitting edema. Neurological: No focal neurological abnormalities Rest of the physical exam is non contributory - Assessment and Plan (1) Acute exacerbation of chronic obstructive airways disease Current Visit: No Status: Acute Assessment and Plan: respiratory status improving. mild expiratory wheezing on auscultation. improved when compared with past couple of days. sputum culture: preliminary report, growing gram negative rods Plan: patient is on azithromycin 500mg/PO daily, and ceftriaxone 1gm/IV daily decrease methyl-prednisolone to 40mg/IV daily. c/w bronchodilators scheduled Q4RT. and spiriva. incentive spirometry (2) Acute on chronic HFrEF (heart failure with reduced ejection fraction) Current Visit: Yes Status: Acute Assessment and Plan: patient volume overloaded. positive balance of 10.1ml. Plan c/w strict intake and out. fluids restriction to 1.5 litters a day on metoprolol 100mg/PO daily c/w furosemide to 40mg/IV BID metolazone 5mg/PO daily, to be given 30 minutes before furosemide added. continue to hold ACEs. will start it before dc. cardiology recommendations appreciated. (3) EVARISTO (acute kidney injury) Current Visit: Yes Status: Resolved Assessment and Plan: due to acute chf, kidney function back to baseline. continue IV diuretics. 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 c/w heparin drip. on warfarin per pharmacy protocol. (5) Atrial fibrillation Current Visit: No Status: Chronic Assessment and Plan: Rate controlled on metoprolol 100mg/PO daily INR not therapeutic. Goal INR >2 On a heparin drip as a bridge for secondary stroke prevention. c/w warfarin per phamacy protocol. (6) Diabetes mellitus Current Visit: No Status: Chronic Assessment and Plan: blood sugar sub-optimally controlled. Plan increase levemir to 25 units BID, and lispro increased to 10 units ac. c/w carbs controlled diet. (7) Tobacco use Current Visit: No Status: Chronic (8) PAD (peripheral artery disease) Current Visit: No Status: Chronic Assessment and Plan: patient s/p right to left femoral-femoral bypass graft with 6 mm PTFE on 05/29/18. Plan c/w clopidogrel 75mg/PO daily. (9) Pneumonia Current Visit: No Status: Suspected Assessment and Plan: Urine for atypical organism: negative sputum culture: growing gram negative rods. c/w ceftriaxone 1gm/IV daily. DVT Prophylaxis: intermittent pneumatic compression for dvt prophylaxis. - Summary of Assessment and Plan Summary of Assessment and Plan: Patient to remain in the hospital due to acute hfref exacerbation, on IV diuretics. - Time Spent with Patient Total time spent is greater than 50% in coordination of care (as documented) at patient's floor/unit and/or counseling patient: Greater than 35 minutes (40) Plan of Care Discussed with: patient (and the nurse.) Internal Medicine: Result - Labs CBC & Chem 7: 11/17/18 06:10 11/17/18 06:10 Labs: Short CBC 11/17/18 Range/Units 06:10 WBC 17.0 H (4.3-11.1) K/mcL Hgb 10.8 L (11.5-15.4) g/dL Hct 35.3 (35.3-44.9) % Plt Count 288 (140-400) K/mcL Neutrophils # 15.1 H (1.6-8.9) K/mcL BMP 11/17/18 06:10 Sodium 136 Potassium 4.1 Chloride 93 L Carbon Dioxide 35 H BUN 36 H Creatinine 1.06 Glucose 223 H Calcium 9.3 - ABG Interpretation ABG results: PT/INR, D-dimer PT 19.7 Seconds (9.4-12.1) H 11/17/18 06:10 Consult Discharge Plan - Plan Referrals: Marielle Wang, DIRECTOR OF CAPITAL GIVING [Primary Care Provider] - (5) Atrial fibrillation Qualifiers: Atrial fibrillation type: chronic Qualified Code(s): I48.2 - Chronic atrial fibrillation (6) Diabetes mellitus Qualifiers: Diabetes mellitus type: type 2 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
--- NOTE | 2018-11-17 12:00 | Cardiology Progress Note ---
Date of Encounter: 11/17/18 Time of Encounter: 11:58 Assessment and Plan (1) HFrEF (heart failure with reduced ejection fraction) Current Visit: Yes Status: Acute Patient presented to the ED under direction of PCP d/t supratherapeutic INR. Recent LORENA as outpatient demonstrating reduction in LVEF, 20-25% with severe global hypokinesis. Last known TTE at [facility] in 2013, LVEF 45%. Volume overload on exam, significant wheezing. BNP 848 and CXR demonstrated pulmonary vascular congestion at [place] [facility]. Recommend bilateral LE compression stockings. On IV lasix, 40 mg BID. Reports symptoms improving. I/O +10mL, question accuracy. Renal function has normalized today. Of note, patient has followed with [facility] at [place] over the past several years, Dr. Seaman. Hospitalized 03/2018 at [place] with [facility] during that admission. Records reviewed. TTE 03/2018 at [place] EF was mildly reduced 45-50%. Cardiac CTA 03/2018 with moderate stenosis in prox-mid RCA with concern for plaque ulceration and inferior wall motion abnormalities. Underwent LHC 04/09/18 with mild diffuse CAD, no intervention. Discussed and reviewed with Dr. Traci Goodwin. Will repeat a limited surface TTE. If EF remains reduced, will recommend [facility] to further evaluate despite no in tervention 04/09/18. Continue BB. Recommend ACEi/ARB if renal function will allow. Strict I&Os, daily weights, Na/fluid restriction diet. Qualifiers: Heart failure chronicity: acute on chronic Qualified Code(s): I50.23 - Acute on chronic systolic (congestive) heart failure (2) Atrial fibrillation Current Visit: No Status: Chronic Patient reports longstanding hx of afib. Previously on Eliquis; developed SUZANNE thrombus while on Eliquis therefore patient was transitioned to coumadin. Hx of small GI bleed at [facility], patient has been following with Dr. Bowie in the outpatient setting for Watchman evaluation. Developed supratherapeutic INR; likely d/t antibiotics. INR 12.9 upon admission with hemoptysis. INR now 1.7, patient started on IV heparin gtt as bridge. Will hold Coumadin in anticipation of LHC. Heart rates controlled upon exam, continue BB. Qualifiers: Atrial fibrillation type: chronic Qualified Code(s): I48.2 - Chronic atrial fibrillation Discussion w patient/family: The assessment and plan as outlined above was discussed with the patient and/or family members who expressed understanding and agreement. All questions were answered. Thank you for involving us in the care of your patient. Please call with any questions. I will discuss all the above with Dr. Traci Goodwin and make changes as necessary. Subjective Principal diagnosis: Supratherapeutic INR, CHF Interval history: Reports dyspnea is improving. Denies chest pain. Objective Vital Signs, Last 4 Hours Resp Pulse Ox 11/17/18 11:22 18 94 Vital Signs Temp Pulse Resp BP Pulse Ox 11/17/18 11:22 18 94 11/17/18 07:34 18 94 11/17/18 07:23 87 18 140/80 94 11/17/18 03:48 16 94 11/17/18 03:10 97.6 F 83 16 159/84 97 11/16/18 23:19 88 16 158/86 11/16/18 23:15 16 98 11/16/18 20:39 98.1 F 79 16 168/91 98 11/16/18 19:56 18 93 11/16/18 15:08 98 F 86 18 174/93 94 11/16/18 12:57 97.8 F 78 20 165/80 95 Intake and Output 11/16/18 11/17/18 11/17/18 23:59 07:59 15:59 Intake Total 314 / 1394 166.1 / 426.0 259.9 / 426.0 Output Total 1200 / 1700 400 / 400 Balance -886 / -306 166.1 / 26.0 -140.1 / 26.0 Intake: IV Fluids 74 / 74 166.1 / 186.0 19.9 / 186.0 Heparin 25,000 UNIT/250 ML D5W 64 / 64 166.1 / 186.0 19.9 / 186.0 25,000 unit In 250 ml @ 14 UNIT /KG/HR 11.284 mls/hr IVC . [id number] [facility] Rx#:[id number] Rocephin 1,000 MG In Water for 10 10 inj. (sterile) 10 ML @ 600 mls/ hr IVP Q24H [facility] Rx#:[id number] Oral 240 / 1320 240 / 240 Output: Urine 1200 / 1700 400 / 400 Other: Meal Dinner Percent of Meal Consumed 100% Stool Size Moderate Stool Consistency soft Stool Characteristics Normal for Patient Stool Color Brown # Voids 2 # Bowel Movements 1 Weight 78.8 kg Blood Glucose* 383 195 Patient Weight 11/17/18 23:59 Weight 78.8 kg General: Conversant, No Apparent Distress HEENT: Atraumatic, Normocephaly, Mucus Membranes Moist Neck: Normal carotid pulses Cardiac: Other (irregular) Lungs: Other (rhonchi noted) Neuro: Alert and responsive, No focal deficits noted Abdomen: Soft, Non-Tender Skin: No rashes noted on visualized skin Musculoskeletal: No Chest Wall Tenderness Extremities: Other (moderate BLE edema) Results 11/17/18 06:10 11/17/18 06:10 Lab Results 11/17/18 11/17/18 11/17/18 06:10 06:10 06:10 WBC 17.0 H Hgb 10.8 L Hct 35.3 Plt Count 288 INR 1.7 Sodium 136 Potassium 4.1 Chloride 93 L Carbon Dioxide 35 H BUN 36 H Creatinine 1.06 Glucose 223 H Calcium 9.3 Magnesium 1.8 Short CBC 11/17/18 Range/Units 06:10 WBC 17.0 H (4.3-11.1) K/mcL Hgb 10.8 L (11.5-15.4) g/dL Hct 35.3 (35.3-44.9) % Plt Count 288 (140-400) K/mcL Neutrophils # 15.1 H (1.6-8.9) K/mcL BMP 11/17/18 Range/Units 06:10 Sodium 136 (136-145) mEq/L Potassium 4.1 (3.5-5.1) mEq/L Chloride 93 L (98-107) mEq/L Carbon Dioxide 35 H (23-29) mEq/L BUN 36 H (8-23) mg/dL Creatinine 1.06 (0.60-1.20) mg/dL Glucose 223 H (70-105) mg/dL Calcium 9.3 (8.6-10.3) mg/dL Active Medications Hydrocodone Bitart/Acetaminophen ([place] 7.5-325 Mg) 1 tab PO Q4H PRN PRN Reason: Pain Stop: 05/16/19 23:27 Last Admin: 11/17/18 09:24 Dose: 1 tab Documented by: Albuterol/Ipratropium (Duoneb) 3 ml IH [id number] [facility] Stop: 05/16/19 20:46 Last Admin: 11/17/18 11:21 Dose: 3 ml Documented by: Azithromycin (Zithromax) 500 mg PO Q24H [facility] Stop: 05/19/19 10:01 Clopidogrel Bisulfate (Plavix) 75 mg PO DAILY [facility] Stop: 05/17/19 09:01 Last Admin: 11/17/18 09:24 Dose: 75 mg Documented by: Dextrose/Water (Dextrose 50% (Syg)) 25 ml IVP AD PRN PRN Reason: Hypoglycemia Stop: 05/16/19 20:45 Furosemide (Lasix) 40 mg IVP BIDDIURETIC [facility] Stop: 05/18/19 17:01 Last Admin: 11/17/18 09:25 Dose: 40 mg Documented by: Glucagon (Glucagen) 1 mg IM ONCE PRN PRN Reason: Hypoglycemia Stop: 05/16/19 20:45 Glucose (Gluctose) 15 gm PO ONCE PRN PRN Reason: Hypoglycemia Stop: 05/16/19 20:45 Glucose (Gluctose) 30 gm PO ONCE PRN PRN Reason: Hypoglycemia Stop: 05/16/19 20:45 Heparin Sodium (Porcine) (Heparin) 5,600 unit 70 unit/kg (5600 unit) IVP Q6HR PRN PRN Reason: SEE COMMENTS Stop: 05/18/19 07:37 Heparin Sodium (Porcine) (Heparin) 2,800 unit 35 unit/kg (2800 unit) IVP Q6H PRN PRN Reason: SEE COMMENTS Stop: 05/18/19 07:37 Last Admin: 11/16/18 17:55 Dose: 2,800 unit Documented by: Dextrose (Dextrose 5%) 1,000 mls @ 100 mls/hr IVC .Q10H PRN PRN Reason: HYPOGLYCEMIA Stop: 05/16/19 20:45 Heparin Sodium/Dextrose (Heparin 25,000 Unit/250 Ml D5w) 25,000 unit in 250 mls @ 11.284 mls/hr IVC .[id number] [facility]; Protocol Stop: 05/18/19 07:46 Last Admin: 11/17/18 09:25 Dose: 16 unit/kg/hr, 12.9 mls/hr Documented by: Ceftriaxone Sodium 1,000 mg/ (Sterile Water) 10 mls @ 600 mls/hr IVP Q24H [facility] Stop: 05/18/19 17:01 Last Infusion: 11/16/18 18:00 Dose: Infused Documented by: Insulin Detemir (Levemir) 25 unit SQ BID [facility] Stop: 05/19/19 21:01 Insulin Human Lispro (Humalog) 0 units SQ TIDWM [facility]; Protocol Stop: 05/17/19 08:01 Last Admin: 11/17/18 09:25 Dose: 8 units Documented by: Insulin Human Lispro (Humalog) 0 units SQ HS [facility]; Protocol Stop: 05/17/19 21:01 Last Admin: 11/16/18 20:59 Dose: 6 units Documented by: Insulin Human Lispro (Humalog) 10 units SQ TIDWM [facility] Stop: 05/19/19 12:01 Methylprednisolone (Solu-Medrol) 40 mg IVP DAILY [facility] Stop: 05/20/19 09:01 Metolazone (Zaroxolyn) 5 mg PO DAILY [facility] Stop: 05/20/19 09:01 Metoprolol Succinate (Toprol Xl) 100 mg PO DAILY [facility] Stop: 05/17/19 09:01 Last Admin: 11/17/18 09:24 Dose: 100 mg Documented by: Naloxone HCl (Narcan) 0.4 mg IVP Q2MPRN PRN PRN Reason: SEE COMMENTS Stop: 05/16/19 20:40 Tiotropium [place] (Spiriva) 18 mcg IH DAILYR [facility] Stop: 05/18/19 10:01 Last Admin: 11/17/18 07:36 Dose: Not Given Documented by: Warfarin Sodium (Coumadin Perpt) 1 each PO DAILY@1800 [facility]; Protocol Stop: 05/18/19 18:01 Last Admin: 11/16/18 18:01 Dose: Not Given Documented by: Warfarin Sodium (Coumadin) 5 mg PO 1800 ONE Stop: 11/17/18 18:01 - Imaging and Cardiology Echo: report reviewed - EKG Interpretation EKG results cardiology: other (12 hr tele AVG HR 86, A-Fib) Consult Discharge Plan - Plan Referrals: Marielle Wang, DOUGH MAKER [Primary Care Provider] -
[2018-11-17] MEDS: Azithromycin 250 MG TABLET PO SCH (12:34)
[2018-11-17] MEDS ORDERED: Perflutren Lipid Microsphere 1.3 ML in 0.9 % Sodium Chloride 8.7 ML IVP ONE (14:32)
[2018-11-17] MEDS: cefTRIAXone 1,000 MG in Water for inj. (sterile) 10 ML IVP SCH (16:56)
[2018-11-17] MEDS ORDERED: *HR* Warfarin 5 MG TABLET PO ONE (18:00)
[2018-11-17] MEDS ORDERED: Insulin DETEMIR 100 UNIT/ML X5UNITS SQ SCH (21:00)
[2018-11-18] MEDS: *HR* HYDROcodone/Acet 7.5/325 mg TABLET PO PRN ×6 (02:37→23:37)
[2018-11-18] MEDS: Heparin 25,000 UNIT/250 ML D5W 25,000 UNIT/250 ML IV.SOLN IVC SCH ×2 (04:30→08:29)
[2018-11-18] MEDS: Ipratropium/Albuterol Neb 3 ML IH SCH ×5 (04:44→19:47)
[2018-11-18 06:11] LABS: Basophils % 0.1 %; Eosinophils % 0.1 %; Hematocrit 36.8 % (35.3-44.9); Hemoglobin 11.3 g/dL (11.5-15.4); Immature Granulocytes % 0.7 % (0-4); Lymphocytes # 1.8 K/mcL (0.6-4.6); Mean Corpuscular HGB Conc 30.7 g/dL (31.6-35.5); Mean Corpuscular Hemoglobin 25.6 pg (28.0-33.3); Mean Corpuscular Volume 83.3 fL (83.0-100.0); Mean Platelet Volume 9.6 fL (9.4-12.4); Monocytes # 1.8 K/mcL (0.0-1.3); Monocytes % 10.1 %; Neutrophils # 14.1 K/mcL (1.6-8.9); Nucleated Red Blood Cells 0.9 /100 WBC (0); Platelet Count 287 K/mcL (140-400); Red Blood Count 4.42 M/mcL (3.82-4.97); Red Cell Distribution Width 16.8 % (11.5-14.5); White Blood Count 17.8 K/mcL (4.3-11.1)
[2018-11-18 06:39] LABS: BUN/Creatinine Ratio 32 (6-26); Blood Urea Nitrogen 29 mg/dL (8-23); Calcium 9.5 mg/dL (8.6-10.3); Carbon Dioxide 41 mEq/L (23-29); Chloride 89 mEq/L (98-107); Glucose 90 mg/dL (70-105); Magnesium 1.7 mg/dL (1.6-2.6); Osmolality,Calculated 289 (280-300); Phosphorous 3.4 mg/dL (2.7-4.5); Potassium 3.3 mEq/L (3.5-5.1); Sodium 137 mEq/L (136-145); eGFR For African Americans > 60 (> 60); eGFR For Non-African Americans > 60 (> 60)
[2018-11-18] MEDS: Tiotropium 18 MCG inhalation IH SCH (07:25)
[2018-11-18] MEDS ORDERED: *HR* Heparin 5,000 UNIT/ML VIAL IVP PRN ×2 (07:56)
[2018-11-18] MEDS ORDERED: *HR* Heparin 5,000 UNIT/ML VIAL IVP ONE (07:56)
[2018-11-18] MEDS: Metoprolol XL (24 HR) Succ 50 MG TAB.ER.24H PO SCH (08:28)
[2018-11-18] MEDS: metOLazone 5 MG TABLET PO SCH (08:28)
[2018-11-18] MEDS: Furosemide 40 MG/4 ML VIAL IVP SCH (08:28)
[2018-11-18] MEDS: Azithromycin 250 MG TABLET PO SCH (08:28)
[2018-11-18] MEDS: Insulin LISPRO 300 UNITS/3 ML VIAL SQ SCH ×7 (08:29→22:02)
[2018-11-18] MEDS: Insulin DETEMIR 100 UNIT/ML X5UNITS SQ SCH ×2 (08:35→22:04)
[2018-11-18] MEDS ORDERED: MethylPREDNISolone 40 MG/ML VIAL IVP SCH (09:00)
--- NOTE | 2018-11-18 10:37 | Cardiology Progress Note ---
Date of Encounter: 11/18/18 Time of Encounter: 09:30 Assessment and Plan (1) HFrEF (heart failure with reduced ejection fraction) Current Visit: Yes Status: Acute Patient presented to the ED under direction of PCP d/t supratherapeutic INR. Recent LORENA as outpatient demonstrating reduction in LVEF, 20-25% with severe global hypokinesis. Last known TTE at [facility] in 2013, LVEF 45%. Volume overload on exam, significant wheezing. BNP 848 and CXR demonstrated pulmonary vascular congestion at [place] ED. Recommend bilateral LE compression stockings. On IV lasix, 40 mg BID. Reports symptoms improving. I/O +590mL, question accuracy. Renal function has normalized today. Of note, patient has followed with [facility] at [place] over the past several years, Dr. Seaman. Hospitalized 03/2018 at [place] with [facility] during that admission. Records reviewed. TTE 03/2018 at [place] EF was mildly reduced 45-50%. Cardiac CTA 03/2018 with moderate stenosis in prox-mid RCA with concern for plaque ulceration and inferior wall motion abnormalities. Underwent LHC 04/09/18 with mild diffuse CAD, no intervention. Repeat limited TTE shows LVEF 25%; plan on [facility] in AM if renal function/INR will allow. Will need INR to be less than 1.8. Hypokalemia noted with diuresis, will give extra dose of Potassium this evening. Frequent ectopy noted on telemetry review. Continue BB. Recommend ACEi/ARB if renal function will allow. Strict I&Os, daily weights, Na/fluid restriction diet. Qualifiers: Heart failure chronicity: acute on chronic Qualified Code(s): I50.23 - Acute on chronic systolic (congestive) heart failure (2) Atrial fibrillation Current Visit: No Status: Chronic Patient reports longstanding hx of afib. Previously on Eliquis; developed SUZANNE thrombus while on Eliquis therefore patient was transitioned to coumadin. Hx of small GI bleed at [facility], patient has been following with Dr. Bowie in the outpatient setting for Watchman evaluation. Developed supratherapeutic INR; likely d/t antibiotics. INR 12.9 upon admission with hemoptysis. INR now 1.7, patient started on IV heparin gtt as bridge. Will hold Coumadin in anticipation of LHC. Heart rates controlled upon exam, continue BB. Qualifiers: Atrial fibrillation type: chronic Qualified Code(s): I48.2 - Chronic atrial fibrillation Discussion w patient/family: The assessment and plan as outlined above was discussed with the patient and/or family members who expressed understanding and agreement. All questions were answered. Thank you for involving us in the care of your patient. Please call with any questions. The patient will be discussed and reviewed with Dr. Goodwin; changes to be made accordingly. Subjective Principal diagnosis: Supratherapeutic INR, CHF Interval history: Seen and examined. No new CV complaints upon exam. Objective Vital Signs, Last 4 Hours Temp Pulse Resp BP Pulse Ox 11/18/18 07:23 18 95 11/18/18 06:46 99.1 F 95 17 158/82 93 General: Conversant, No Apparent Distress HEENT: Atraumatic, Normocephaly, Mucus Membranes Moist Cardiac: Other (irregulary irregular) Lungs: Other (coarse breath sounds) Neuro: Alert and responsive Abdomen: Soft Skin: No rashes noted on visualized skin Musculoskeletal: No Chest Wall Tenderness Extremities: Other (BLE edema +1) Results 11/18/18 05:53 11/18/18 05:53 Lab Results 11/18/18 11/18/18 11/18/18 05:53 05:53 05:53 WBC 17.8 H Hgb 11.3 L Hct 36.8 Plt Count 287 INR 2.0 Sodium 137 Potassium 3.3 L Chloride 89 L Carbon Dioxide 41 H* BUN 29 H Creatinine 0.90 Glucose 90 Calcium 9.5 Magnesium 1.7 - Imaging and Cardiology Echo: report reviewed Other Results: 12 hour tele: avg HR=91 Afib. Frequent ectopy noted. - EKG Interpretation EKG results cardiology: personally reviewed Consult Discharge Plan - Plan Referrals: Marielle Wang, FRAMING INSPECTOR [Primary Care Provider] -
[2018-11-18 11:24] LABS: ABG Base Excess 20 mEq/L (-2 to 3); ABG HCO3 46 mEq/L (21-27); ABG Oxygen Saturation 93 % (95-98); ABG PCO2 53 mmHg (35-45); ABG PH 7.55 pH Units (7.32-7.45); ABG PO2 61 mmHg (85-104); ABG TCO2 48 mEq/L (20-26); Blood Gas FiO2 2.5 (1-15=lpm or21-100=%)
[2018-11-18] MEDS: levoFLOXacin 750 MG TABLET PO SCH (12:02)
--- NOTE | 2018-11-18 12:17 | Internal Med Progress Note ---
Hospitalist Progress Note - Encounter Date of Encounter: 11/18/18 Time of Encounter: 12:15 - Subjective Interval History: I have seen and evaluated the patient at bedside. patient reported feeling better and wishes to go home tomorrow. continues to have productive cough. denies abdominal pain, chest pain or light headedness - Exam Vitals: Temp Pulse Resp BP Pulse Ox 99.1 F 95 18 158/82 93 11/18/18 06:46 11/18/18 06:46 11/18/18 11:21 11/18/18 06:46 11/18/18 11:21 Exam: Vitals: Reviewed General: Alert and oriented x4. In no distress Cardiovascular: RRR, normal S1 & S2, no rubs, murmurs or gallops. Lungs: minimal b/l expiratory wheezes, no rales or crackles. Abdomen: Obese, soft, non-tender, no rigidity. NABS in all 4 quadrants Extremities: 2+ pitting edema. Neurological: No focal neurological abnormalities Rest of the physical exam is non contributory - Assessment and Plan (1) Acute exacerbation of chronic obstructive airways disease Current Visit: No Status: Acute Assessment and Plan: rminimal expiratory wheezing on auscultation b/l sputum culture: strenotrophomonas mlatophilia Plan: dc azithromycin and ceftriaxone started on Levofloxacin 750mg/PO daily. DC IV steroids will start prednisone taper On bronchodilators scheduled Q4RT. and spiriva. incentive spirometry (2) Acute on chronic HFrEF (heart failure with reduced ejection fraction) Current Visit: Yes Status: Acute Assessment and Plan: patient volume overloaded. positive balance of -ve 9.9ml. output not accurate, weight on admission 80.4kg, today 76.8kg. Plan strict intake and out. fluids restriction to 1.5 litters a day c/w metoprolol 100mg/PO daily decrease furosemide to 40mg/IV daily. and metolazone 5mg/PO daily, to be given 30 minutes before furosemid. continue to hold ACEs. will start it before dc. cardiology recommendations appreciated. 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 Warfarin held for LHC. (5) Atrial fibrillation Current Visit: No Status: Chronic Assessment and Plan: Rate controlled on metoprolol 100mg/PO daily On a heparin drip as a bridge for secondary stroke prevention. hold warfarin. patient scheduled for [facility]. (6) Diabetes mellitus Current Visit: No Status: Chronic Assessment and Plan: decrease insulin coverage to avoid hypoglycemia. levemir decreased to 20 units BID. lispro decreased to 8 units ac. continue lispro low dose sliding scale. carbs controlled diet. (7) Tobacco use Current Visit: No Status: Chronic Assessment and Plan: Current smoker of 6 cigarettes a day. She used to smoke more heavily and has smoked for roughly 20 years. She is not interested in quitting at this time. counseling provided about smoking cessation. strongly encouraged to quit. (8) PAD (peripheral artery disease) Current Visit: No Status: Chronic Assessment and Plan: patient s/p right to left femoral-femoral bypass graft with 6 mm PTFE on 05/29/18. Plan On clopidogrel 75mg/PO daily. (9) Pneumonia Current Visit: No Status: Suspected Assessment and Plan: Urine for atypical organism: negative sputum culture: Stenotrophonomas maltophilia started on levofloxacin 750mg/IV daily. DVT Prophylaxis: intermittent pneumatic compression for dvt prophylaxis. - Summary of Assessment and Plan Summary of Assessment and Plan: patient to remain in the hospital due to pneumonia, and acute chf exacerbation. - Time Spent with Patient Total time spent is greater than 50% in coordination of care (as documented) at patient's floor/unit and/or counseling patient: Greater than 35 minutes (40) Plan of Care Discussed with: patient (and the nurse.) Internal Medicine: Result - Labs CBC & Chem 7: 11/18/18 05:53 11/18/18 05:53 Labs: Short CBC 11/18/18 Range/Units 05:53 WBC 17.8 H (4.3-11.1) K/mcL Hgb 11.3 L (11.5-15.4) g/dL Hct 36.8 (35.3-44.9) % Plt Count 287 (140-400) K/mcL Neutrophils # 14.1 H (1.6-8.9) K/mcL BMP 11/18/18 05:53 Sodium 137 Potassium 3.3 L Chloride 89 L Carbon Dioxide 41 H* BUN 29 H Creatinine 0.90 Glucose 90 Calcium 9.5 - ABG Interpretation ABG results: ABG ABG pH 7.55 pH Units (7.32-7.45) H 11/18/18 11:20 ABG pCO2 53 mmHg (35-45) H 11/18/18 11:20 ABG pO2 61 mmHg (85-104) L 11/18/18 11:20 ABG O2 Saturation 93 % (95-98) L 11/18/18 11:20 PT/INR, D-dimer PT 23.0 Seconds (9.4-12.1) H 11/18/18 05:53 - Impressions Impressions Echocardiogram Limited Views 11/17/18 15:01 Impressions: LVEF 25%. Severe global left ventricular systolic dysfunction. Left Ventricular Wall Motion: Rest Echo Findings The apex, apical inferior, mid inferior, basal inferior, apical anterior, mid anterior, basal anterior, apical septal, mid inferior septal, basal inferior septal, apical lateral, mid anterior lateral, basal anterior lateral, mid anterior septal, mid inferior lateral, basal anterior septal and basal inferior lateral prajapati were hypokinetic. Findings: Study Quality * Technically sub-optimal due to poor echocardiographic windows. ECG Findings * Atrial fibrillation. Left Ventricle * LVEF 25%. * Severe global left ventricular systolic dysfunction. Consult Discharge Plan - Plan Referrals: Marielle Wang, EGGS INSPECTOR [Primary Care Provider] - (5) Atrial fibrillation Qualifiers: Atrial fibrillation type: chronic Qualified Code(s): I48.2 - Chronic atrial fibrillation (6) Diabetes mellitus Qualifiers: Diabetes mellitus type: type 2 Diabetes mellitus prison insulin use: with medical terminologist use Diabetes mellitus complication status: with hyperglycemia Qualified Code(s): E11.65 - Type 2 diabetes mellitus with hyperglycemia; Z79.4 - medical terminologist (current) use of insulin (9) Pneumonia Qualifiers: Pneumonia type: due to unspecified organism Laterality: unspecified laterality Lung location: unspecified part of lung Qualified Code(s): J18.9 - Pneumonia, unspecified organism
[2018-11-18] MEDS ORDERED: Warfarin perPT PO SCH (18:00)
[2018-11-19] MEDS: Ipratropium/Albuterol Neb 3 ML IH SCH ×6 (00:01→20:19)
[2018-11-19] MEDS: Heparin 25,000 UNIT/250 ML D5W 25,000 UNIT/250 ML IV.SOLN IVC SCH (01:37)
[2018-11-19] MEDS: *HR* HYDROcodone/Acet 7.5/325 mg TABLET PO PRN ×5 (03:37→23:58)
[2018-11-19 06:40] LABS: Basophils % 0.1 %; Eosinophils # 0.1 K/mcL (0.0-0.6); Eosinophils % 0.4 %; Hematocrit 38.4 % (35.3-44.9); Hemoglobin 11.9 g/dL (11.5-15.4); Immature Granulocytes % 0.9 % (0-4); Lymphocytes # 1.9 K/mcL (0.6-4.6); Mean Corpuscular Hemoglobin 25.9 pg (28.0-33.3); Mean Corpuscular Volume 83.7 fL (83.0-100.0); Mean Platelet Volume 9.6 fL (9.4-12.4); Monocytes # 1.6 K/mcL (0.0-1.3); Monocytes % 10.8 %; Neutrophils # 11.1 K/mcL (1.6-8.9); Nucleated Red Blood Cells 0.9 /100 WBC (0); Platelet Count 292 K/mcL (140-400); Red Blood Count 4.59 M/mcL (3.82-4.97); Red Cell Distribution Width 16.8 % (11.5-14.5); Segmented Neutrophils % 74.8 %; White Blood Count 14.8 K/mcL (4.3-11.1)
[2018-11-19 06:49] LABS: INR 1.4; Prothrombin Time 15.7 Seconds (9.4-12.1)
[2018-11-19 07:05] LABS: Calcium 9.6 mg/dL (8.6-10.3); Magnesium 1.8 mg/dL (1.6-2.6); Phosphorous 4.2 mg/dL (2.7-4.5); Potassium 3.9 mEq/L (3.5-5.1)
[2018-11-19] MEDS: Tiotropium 18 MCG inhalation IH SCH (07:25)
[2018-11-19] MEDS: metOLazone 5 MG TABLET PO SCH (08:32)
[2018-11-19] MEDS: Insulin DETEMIR 100 UNIT/ML X5UNITS SQ SCH ×2 (08:33→21:53)
[2018-11-19] MEDS: predniSONE 20 MG TABLET PO SCH (09:19)
[2018-11-19] MEDS: Metoprolol XL (24 HR) Succ 50 MG TAB.ER.24H PO SCH (09:20)
[2018-11-19] MEDS: Furosemide 40 MG/4 ML VIAL IVP SCH (09:22)
--- NOTE | 2018-11-19 09:25 | Event Note ---
Date of Encounter: 11/19/18 Time of Encounter: 09:24 - Cardiology Event Note LHC today for further reduced EF--25%, previously 45-50% 03/2018 at [place]. INR 1.4 today--on heparin bridge for SUZANNE thrombus. Plan to resume Coumadin after LHC. HAS-BLED Score - Score Hypertension: Uncontrolled,>160 mmhg systolic Bleeding: Prior major bleeding or predisposition to bleeding Elderly: Age>65 years Medication usage predisposing to bleeding: Antiplatelet agents, NSAIDs, Anticoagulants Score: 4
[2018-11-19] MEDS: Insulin LISPRO 300 UNITS/3 ML VIAL SQ SCH ×7 (09:27→21:54)
--- NOTE | 2018-11-19 11:28 | Internal Med Progress Note ---
Hospitalist Progress Note - Encounter Date of Encounter: 11/19/18 Time of Encounter: 11:21 - Subjective Interval History: I have seen and evaluated the patient at bedside. Patient laying flat in bed in no distress. denies chest pain, or shortness of breath. denies abdominal pain, nausea or vomiting. - Exam Vitals: Temp Pulse Resp BP Pulse Ox 98.0 F 84 17 138/69 96 11/19/18 10:58 11/19/18 10:58 11/19/18 11:19 11/19/18 10:58 11/19/18 11:19 Exam: Vitals: Reviewed General: Alert and oriented x4. In no distress Cardiovascular: RRR, normal S1 & S2, no rubs, murmurs or gallops. Lungs: CTA b/l, no rales or crackles. Abdomen: Obese, soft, non-tender, no rigidity. NABS in all 4 quadrants Extremities: trace edema on the lower ext b/l. Neurological: No focal neurological abnormalities Rest of the physical exam is non contributory - Assessment and Plan (1) Acute exacerbation of chronic obstructive airways disease Current Visit: No Status: Resolved Assessment and Plan: chest is clear to auscultation b/l. sputum culture: strenotrophomonas mlatophilia Plan: c/w Levofloxacin 750mg/PO daily. and prednisone 40mg/PO daily c/w bronchodilators scheduled Q4RT. and spiriva. incentive spirometry (2) Acute on chronic HFrEF (heart failure with reduced ejection fraction) Current Visit: Yes Status: Acute Assessment and Plan: Patient volume overloaded. total negative balance of 2.6 litters. weight on admission 80.4kg, today 76.6kg. Plan c/w strict intake and out. fluids restriction to 1.5 litters a day on metoprolol 100mg/PO daily c/w furosemide 40mg/IV daily. dc metolazone continue to hold ACEs. will start it before dc. Patient scheduled for C today for evaluation of worsening E.F cardiology recommendations appreciated. (3) LA thrombus Current Visit: Yes Status: Chronic Assessment and Plan: On a heparin drip. Warfarin held as patient is scheduled for C. (4) Atrial fibrillation Current Visit: No Status: Chronic Assessment and Plan: Rate controlled Plan c/w metoprolol 100mg/PO daily On a heparin drip as a bridge for secondary stroke prevention. continue to hold warfarin patient scheduled for LHC. (5) Diabetes mellitus Current Visit: No Status: Chronic Assessment and Plan: blood sugar sub-optimally controlled. patient NPO for LHC c/w current insulin coverage. (6) PAD (peripheral artery disease) Current Visit: No Status: Chronic Assessment and Plan: patient s/p right to left femoral-femoral bypass graft with 6 mm PTFE on 05/29/18. Plan c/w clopidogrel 75mg/PO daily. (7) Pneumonia Current Visit: No Status: Suspected Assessment and Plan: Urine for atypical organism: negative sputum culture: Stenotrophonomas maltophilia Plan: c/w levofloxacin 750mg/PO Q48hr. (8) EVARISTO (acute kidney injury) Current Visit: Yes Status: Resolved (9) Tobacco use Current Visit: No Status: Chronic DVT Prophylaxis: Intermittent pneumatic compression for DVT prophylaxis. - Summary of Assessment and Plan Summary of Assessment and Plan: Patient to remain in the hospital, scheduled for LHC. on heparin drip, LA thrombus. - Time Spent with Patient Total time spent is greater than 50% in coordination of care (as documented) at patient's floor/unit and/or counseling patient: Greater than 35 minutes (45) Plan of Care Discussed with: patient (and the nurse.) Internal Medicine: Result - Labs CBC & Chem 7: 11/19/18 06:20 11/19/18 06:20 Labs: Short CBC 11/19/18 Range/Units 06:20 WBC 14.8 H (4.3-11.1) K/mcL Hgb 11.9 (11.5-15.4) g/dL Hct 38.4 (35.3-44.9) % Plt Count 292 (140-400) K/mcL Neutrophils # 11.1 H (1.6-8.9) K/mcL BMP 11/19/18 06:20 Sodium 128 L Potassium 3.9 Chloride 91 L Carbon Dioxide 32 H BUN 35 H Creatinine 1.13 Glucose 280 H Calcium 9.6 - ABG Interpretation ABG results: ABG ABG pH 7.55 pH Units (7.32-7.45) H 11/18/18 11:20 ABG pCO2 53 mmHg (35-45) H 11/18/18 11:20 ABG pO2 61 mmHg (85-104) L 11/18/18 11:20 ABG O2 Saturation 93 % (95-98) L 11/18/18 11:20 PT/INR, D-dimer PT 15.7 Seconds (9.4-12.1) H 11/19/18 06:20 Consult Discharge Plan - Plan Referrals: Marielle Wang, TOOL LATHE OPERATOR [Primary Care Provider] - (4) Atrial fibrillation Qualifiers: Atrial fibrillation type: chronic Qualified Code(s): I48.2 - Chronic atrial fibrillation (5) Diabetes mellitus Qualifiers: Diabetes mellitus type: type 2 Diabetes mellitus custodial insulin use: with custodial use Diabetes mellitus complication status: with hyperglycemia Qualified Code(s): E11.65 - Type 2 diabetes mellitus with hyperglycemia; Z79.4 - FDC (current) use of insulin (7) Pneumonia Qualifiers: Pneumonia type: due to unspecified organism Laterality: unspecified laterality Lung location: unspecified part of lung Qualified Code(s): J18.9 - Pneumonia, unspecified organism
--- NOTE | 2018-11-19 15:25 | Event Note ---
Date of Encounter: 11/19/18 Time of Encounter: 15:24 - Cardiology Event Note Given cathode ray tube assembler volume, will need to delay LHC until tomorrow 11/20. Will make NPO after midnight tonight.
[2018-11-19] MEDS ORDERED: Insulin LISPRO 300 UNITS/3 ML VIAL SQ ONE (23:27)
[2018-11-20] MEDS: Ipratropium/Albuterol Neb 3 ML IH SCH ×7 (00:04→23:50)
[2018-11-20 06:44] LABS: Basophils % 0.1 %; Eosinophils # 0.1 K/mcL (0.0-0.6); Hematocrit 39.6 % (35.3-44.9); Hemoglobin 12.3 g/dL (11.5-15.4); Immature Granulocytes % 0.7 % (0-4); Lymphocytes % 14.1 %; Mean Corpuscular HGB Conc 31.1 g/dL (31.6-35.5); Mean Corpuscular Hemoglobin 25.7 pg (28.0-33.3); Mean Corpuscular Volume 82.8 fL (83.0-100.0); Mean Platelet Volume 9.8 fL (9.4-12.4); Monocytes # 1.2 K/mcL (0.0-1.3); Monocytes % 8.6 %; Neutrophils # 10.9 K/mcL (1.6-8.9); Nucleated Red Blood Cells 0.4 /100 WBC (0); Platelet Count 330 K/mcL (140-400); Red Blood Count 4.78 M/mcL (3.82-4.97); Red Cell Distribution Width 16.6 % (11.5-14.5); Segmented Neutrophils % 75.5 %; White Blood Count 14.4 K/mcL (4.3-11.1)
[2018-11-20 06:51] LABS: Prothrombin Time 11.8 Seconds (9.4-12.1)
[2018-11-20 07:05] LABS: BUN/Creatinine Ratio 41 (6-26); Blood Urea Nitrogen 43 mg/dL (8-23); Calcium 9.6 mg/dL (8.6-10.3); Carbon Dioxide 31 mEq/L (23-29); Chloride 92 mEq/L (98-107); Glucose 194 mg/dL (70-105); Magnesium 1.9 mg/dL (1.6-2.6); Osmolality,Calculated 292 (280-300); Phosphorous 5.5 mg/dL (2.7-4.5); Potassium 3.7 mEq/L (3.5-5.1); Sodium 133 mEq/L (136-145); eGFR For African Americans > 60 (> 60); eGFR For Non-African Americans 52 (> 60)
[2018-11-20] MEDS: Tiotropium 18 MCG inhalation IH SCH (07:23)
[2018-11-20] MEDS: Insulin LISPRO 300 UNITS/3 ML VIAL SQ SCH ×7 (08:07→20:54)
[2018-11-20] MEDS: Metoprolol XL (24 HR) Succ 50 MG TAB.ER.24H PO SCH (09:31)
[2018-11-20] MEDS: predniSONE 20 MG TABLET PO SCH (09:31)
[2018-11-20] MEDS ORDERED: 0.9 % Sodium Chloride 1,000 ML ONE (09:48)
[2018-11-20] MEDS ORDERED: Heparin 1,000 UNITS/500 mL 500 ML ONE (09:48)
[2018-11-20] MEDS ORDERED: Nitroglycerin 1,000 MCG/10 ML VIAL IV ONE (09:49)
[2018-11-20] MEDS ORDERED: Iopamidol 125 ML INFUS..BTL ONE (09:49)
[2018-11-20] MEDS ORDERED: *HR* Heparin 10,000 UNIT/10 ML VIAL ONE (09:49)
[2018-11-20] MEDS ORDERED: *HR* Midazolam HCl 2 MG/2 ML VIAL ONE (09:57)
[2018-11-20] MEDS ORDERED: *HR* FentaNYL (PF) 100 MCG/2 ML VIAL ONE (09:57)
--- NOTE | 2018-11-20 09:58 | Pre-Sedation Evaluation ---
Pre-sedation evaluation - Pre-sedation checklist Date of procedure: 11/20/18 Procedure: [facility] Recent Vitals: Last Vital Signs Temp 97.6 F 11/20/18 06:53 Pulse 73 11/20/18 06:53 Resp 16 11/20/18 07:22 BP 146/85 11/20/18 06:53 Pulse Ox 99 11/20/18 07:22 H&P (including ROS) documented in medical record: Yes Previous reaction to sedatives/anesthetics: No Dietary Status: NPO after Midnight Airway Assessment: Patient can open mouth completely, TMJ function normal, Micrognathia (under-bite, receding chin) absent, Neck with adequate range of mot ion Dentition: dentures removed Possible difficult airway: No ASA Classification *see protocol: CLASS II-Mild systemic disease Plan of Care: Pt appropriate candidate for procedure/moderate/conscious sedation Cardiac Registry (Cardio Only) - Functional Capacity Functional Capacity: < 4 METS - Clincal Frailty Scale Clinical Frailty Scale: Vulnerable
[2018-11-20] MEDS ORDERED: Verapamil 5 MG/2 ML VIAL ONE (10:14)
--- NOTE | 2018-11-20 11:02 | Invasive Diagnostic Lab Proc ---
Name: Audrey Tafoya Date of Study: 11/20/2018 Date: 1950 Ht: 61.8in Medical Record#: [id number] Age: 67 Wt: 167.77lb Gender: Female BSA: 1.77 Order #: [id number] BMI: 30.87 Physicians Procedure Physician: Traci Goodwin MD, [facility] Referring MD: Referring MD: Staff Name Position Time In Fawad Olegario RT (R) Scrub 10:00 AM Meghan Celestin RT (R) Monitor 10:01 AM Quang Bonilla RN Assistant Professor Of History 10:01 AM Anabelle Em RT (R) Monitor 10:01 AM Indications Indication Other-Abnormal Test- ECHO Procedures Performed Procedure CORONARY ARTERY ANGIO S&I Pre-Procedure Checklist Informed consent is complete signed and on chart. H&P is on chart. ID band is on and ID verified with patient. Patient NPO for procedure The procedure was described for the patient and questions were answered. ECG is on chart. Rhythm: NSR Plan of Care Patient will tolerate the procedure without complications. Adequate level of comfort will be maintained. Hemodynamics will remain stable Patient will recover from procedure without complications. Respiratory function will be maintained. Cardiac rhythm will remain stable. Patient temperature will be maintained. Patient and/or family have verbalized understanding of the procedure. Patient Education Chief Complaint/Reason for Test: Cardiac Cath Developmental Category: Geriatric (65+ years) Developmentally Appropriate for Age: Yes Learning Barriers: None Education Needs: Procedure Education Method: Verbal Information Taught: Cardiac Cath Educational Evaluation: Able to repeat information Intravenous Access Time IV Size Location DC'd Fluid/Drip Rate Units RN 09:56 AM 18g 1 1/4" Patent On Arrival Rt Arm 0.9 w/ Sodium Bicarbonate 25 ml/hr Quang Bonilla RN Allergies Amoxicillin Penicillins Vital Signs Time BP (mmHg) HR (bpm) O2 Sat. RR (bpm) LOC 10:09 AM / % 5 = Fully awake and oriented or at pre-proc level 10:09 AM / % 4 = Oriented but drowsy 10:25 AM / % 4 = Oriented but drowsy 10:08 AM 165 / 95 77 96 % 18 10:13 AM 171 / 100 85 100 % 15 10:17 AM 142 / 114 77 98 % 20 10:22 AM 157 / 87 108 96 % 16 10:27 AM 156 / 84 71 95 % 13 10:32 AM 139 / 74 62 93 % 13 10:37 AM 134 / 82 72 92 % 11 10:43 AM 152 / 78 67 95 % 16 10:47 AM 155 / 84 69 % 16 Procedural Medications Time Medication Dose Units Method Given By 10:08 AM Oxygen 2 L/min nasal cannula Quang Bonilla RN 10:08 AM Versed 2 mg Intravenous Quang Bonilla RN 10:08 AM Fentanyl 50 mcg Intravenous Quang Bonilla RN 10:30 AM Lidocaine 2% 1 ml Subcutaneous Traci Goodwin MD, FAC 10:30 AM Heparin 4000 units Nitroglycerin 200 mcg Verapamil 2.5 mg Intraarterial Traci Goodwin MD, [facility] ASA Classification: CLASS II- Mild systemic disease (i.e. well-controlled diabetes, hypertension, asthma, cigarette smoking) Tristen Score Preprocedure Postprocedure Activity 2- Moves 4 extremities sustained head lift Activity 2- Moves 4 extremities sustained head lift Circulation 2- SBP +/= 20 points of pre-anesthetic level Circulation 2- SBP +/= 20 points of pre-anesthetic level Consciousness 2- Awake and alert oriented x 3 Consciousness 2- Awake and alert oriented x 3 O2 Saturation 2- Able to maintain O2 satruation of 92% on room air O2 Saturation 2- Able to maintain O2 satruation of 92% on room air Respiratory 2- Able to deep breathe and cough well Respiratory 2- Able to deep breathe and cough well Total Score 10 Total Score 10 Contrast Agent: Isovue Diagnostic Contrast: 39 ml Total Contrast: 39 ml Fluoro Dose: 15 mGy Procedure Log Time Note Enter By 10:00 AM Pt arrived to outside laborer 2 at 10:00 twilson 10:01 AM Olegario Celestin RT (R) Position: Scrub Time in: 10:00 twilson 10:01 AM Meghan Celestin RT (R) Position: Monitor Time in: 10: twilson 10:01 AM Quang Bonilla RN Position: Assistant Professor Of History Time in: 10: twilson 10:01 AM Anabelle Em RT (R) Position: Monitor Time in: 10: twilson 10:02 AM Patient charges- Angio tray pack, Navilyst 3mm J, Pulse Oximetry and ACIST tubing and transducer twilson 10:04 AM CathStat 10:05 AM Case Delayed no twilson 10:05 AM Physician arrived 10:05 twilson 10:05 AM Meet and greet completed twilson 10:05 AM Sign in performed according to hospital policy. Informed consent was obtained. twilson 10:05 AM ASA Class CLASS II- Mild systemic disease (i.e. well-controlled diabetes, hypertension, asthma, cigarette smoking) twilson 10:05 AM Hair removed from procedure site in procedure lab using clippers. Bilateral groin prepped with Chloraprep by Eliezer Chapman RN, then patient was draped. Skin intact. twilson 10:06 AM Vitals capture started with the following parameters, Patient=Adult, Interval=5 min, Initial Diwocjkr=996 mmHg, Deflation Rate=3 mmHg, Cuff placed on Right Arm 10:08 AM Procedure start 10:08 twilson 10:08 AM Time: 10:08 Oxygen on at 2 L/min per nasal cannula by Quang Bonilla RN twilson 10:08 AM HR=77 bpm, WKOJ=390/95 mmhg, SpO2=96.0 %, Resp=18 B/min 10:08 AM Time: 10:08 Versed 2 mg Intravenous Given by Quang Bonilla RN twilson 10:08 AM Time: 10:08 Fentanyl 50 mcg Intravenous Given by Quang Bonilla RN twilson 10:09 AM Time: 10:08 Patient comfortable and pain free: Yes twilson 10:09 AM Time: 10:09LOC: 5 = Fully awake and oriented or at pre-proc level twilson 10:13 AM HR=85 bpm, NTDM=271/100 mmhg, XsM3=003.0 %, Resp=15 B/min 10:14 AM Pressure channel 1 zeroed. 10:16 AM Recorded ECG: HR=85 Condition=Condition 1 10:17 AM HR=77 bpm, NNLQ=084/114 mmhg, SpO2=98.0 %, Resp=20 B/min 10:19 AM Time out was performed according to hospital policy. Conscious sedation and anesthesia was achieved (see medication log with in this report above) twilson 10:22 AM MD=465 bpm, CWQE=440/87 mmhg, SpO2=96.0 %, Resp=16 B/min 10:25 AM Time: 10:09 Patient comfortable and pain free: Yes twilson 10: AM Time: 10:09LOC: 4 = Oriented but drowsy twilson 10:27 AM HR=71 bpm, RDJU=193/84 mmhg, SpO2=95.0 %, Resp=13 B/min 10:30 AM Time: 10:30 1 ml Lidocaine 2% to left radial Subcutaneous Given by Traci Goodwin MD, [facility] twilson 10:30 AM Access obtained by percutaneous puncture. 5/6Fr 10cm Terumo Glidesheath sheath placed in left Radial artery. [id number] twilson 10:31 AM Time: 10:30 Patient given 4,000 units Heparin, 200 mcg Nitroglycerin, and 2.5 mg Verapamil Intraarterial by Traci Goodwin MD, [facility]. This is given to reduce risk of vessel spasm and thrombosis. twilson 10:32 AM HR=62 bpm, TXZZ=985/74 mmhg, SpO2=93.0 %, Resp=13 B/min 10:33 AM 5Fr FR 4 catheter inserted over the wire [facility] twilson 10:33 AM 0.035 260cm Navilyst 3mmJ wire [id number] twilson 10:33 AM Wire removed twilson 10:33 AM Recorded Pressure: Ao, HR=66, Condition=Condition 1 (Aorta) Ao 130/61/89 10:34 AM RCA angiography performed in multiple views. twilson 10:34 AM Recorded Pressure: Ao, HR=66, Condition=Condition 1 (Aorta) Ao 111/71/91 10:34 AM Wire reinserted. twilson 10:34 AM Catheter removed twilson 10:34 AM 5Fr FL 4 catheter inserted over the wire [facility] twilson 10:35 AM Wire removed twilson 10:35 AM Recorded Pressure: Ao, HR=72, Condition=Condition 1 (Aorta) Ao 120/69/91 10:36 AM Recorded Pressure: Ao, HR=70, Condition=Condition 1 (Aorta) Ao 115/69/90 10:36 AM LCA angiography performed in multiple views. twilson 10:37 AM Wire reinserted. twilson 10:37 AM Catheter removed. Wire removed, intact. twilson 10:37 AM Coronary Dominance: right twilson 10:37 AM HR=72 bpm, TYJP=298/82 mmhg, SpO2=92.0 %, Resp=11 B/min 10:38 AM Procedure completed at 10:37 11/20/2018 twilson 10:38 AM Did you address CHACHO flow and Dominance? YesCoronary Dominance: right twilson 10:39 AM Sign out completed: Radiation Dose 116.63 mGy, 14.9 Gy/cm2 Fluoro Time: 0.9 Isovue 370 - 200ml contrast 39 ml given by Traci Goodwin MD, [facility]. Complications: None. The patient was discharged out of the clam bed laborer in stable condition. Sedation minutes 30. Cardiac Rehab Consult needed: No. Confirmed administered medications: Yes twilson 10:39 AM Isovue 370 - 125ml,1 Bottle(s) used. twilson 10:39 AM Arterial sheath pulled, Vasc Band closure device used and was Successful S/N. twilson 10:40 AM Time: 10:25LOC: 4 = Oriented but drowsy twilson 10:40 AM Time: 10:25 Patient comfortable and pain free: Yes twilson 10:40 AM Estimated Blood Loss: minimal twilson 10:40 AM Post ECG NSR twilson 10:41 AM Post Blood Pressure 134/82 twilson 10:41 AM 10:41 Post Pulses Bilateral DP & PT 1+ twilson 10:41 AM 10:41 Post Pulses Lt Radial 1+ twilson 10:42 AM 15 ml air in Vasc Band. twilson 10:42 AM Information taught Cardiac Cath and Vasc Band twilson 10:43 AM HR=67 bpm, YRIC=493/78 mmhg, SpO2=95.0 %, Resp=16 B/min 10:47 AM Education needs Procedure, Plan of Care, and Responsibilities of Patient in Care twilson 10:47 AM Learning barriers :None twilson 10:47 AM Education Methods Verbal twilson 10:47 AM Education evaluation Able to repeat information twilson 10:47 AM Site status No bleeding/ No Hematoma - Lt Wrist as reported by Olegario Celestin RT (R) at 10:47 twilson 10:47 AM Family placed in consult room. twilson 10:47 AM HR=69 bpm, LEZG=332/84 mmhg, Resp=16 B/min 10:49 AM Lesion found in Proximal RCA. Pre Stenosis: 40 Pre CHACHO Flow: twilson 10:49 AM Lesion found in Distal RCA. Pre Stenosis: 30 Pre CHACHO Flow: twilson 10:49 AM Lesion found in Right PDA. Pre Stenosis: 15 Pre CHACHO Flow: twilson 10:49 AM Lesion found in Proximal LAD. Pre Stenosis: 30 Pre CHACHO Flow: twilson 10:49 AM Lesion found in Ramus. Pre Stenosis: 25 Pre CHACHO Flow: twilson 10:54 AM Report given to Naty RIDDLE Pt taken to E Room #18. 10:54 twilson 10:54 AM Delay to floor No twilson 10:54 AM Patient out of room: 10:54 twilson Complications Complication None Hemodynamics Pressures Site Systolic/A Wave Diastolic/V Wave Mean AO 130 61 89 AO 111 71 91 AO 120 69 91 AO 115 69 90 Post Procedure Information Blood Pressure: 134/82 mmHg Rhythm: NSR Post procedural instructions were not given Closure Device Time Device Success/Fail 11/20/2018 10:45:00 AM Mechanical Compression Successful Site Checks Time Location Status Staff Sheath In? Note 10:47 AM Lt Wrist No bleeding/ No Hematoma Olegario Celestin (R) Pulses Time Site Pre-Procedure Post-Procedure Note 11/20/2018 9:56:00 AM Bilateral DP & PT 1+ 10:41:00 AM Bilateral DP & PT 1+ 10:41:00 AM Lt Radial 1+ Updated by RT Eli (R) on 11/20/2018 10:55:38 AM electronically signed on 11/20/2018 10:55:59 AM with status of Final
[2018-11-20] MEDS: *HR* HYDROcodone/Acet 7.5/325 mg TABLET PO PRN ×2 (11:39→20:56)
[2018-11-20] MEDS: levoFLOXacin 750 MG TABLET PO SCH (11:40)
[2018-11-20] MEDS: Insulin DETEMIR 100 UNIT/ML X5UNITS SQ SCH ×2 (11:55→20:54)
[2018-11-20] MEDS ORDERED: *HR* Promethazine 25 MG/ML VIAL IVP PRN (13:36)
--- NOTE | 2018-11-20 13:37 | Event Note ---
Date of Encounter: 11/20/18 Time of Encounter: 13:35 - Cardiology Event Note LHC nonobstructive CAD, no intervention. TTE EF 25%. 13 beat NSVT yesterday. Discussed and reviewed with Dr. Fuentes. Given CMP and NSVT, recommend lifevest. Pt noted to have SUZANNE thrombus earlier this month. I discussed increased CVA risk if she is shocked by her lifevest and her risk of sudden cardiac without lifevest. R/B/A discussed. Pt is agreeable to lifevest. Continue BB and will add low dose ACEi. Resume heparin gtt ~4 hours post LHC (small hematoma at left radial access site). Coumadin to restart tonight. Goal INR 2-3. Will need heparin bridging until therapeutic given SUZANNE thrombus.
[2018-11-20] MEDS: Furosemide 40 MG/4 ML VIAL IVP SCH (13:39)
[2018-11-20] MEDS ORDERED: *HR* Heparin 5,000 UNIT/ML VIAL IVP PRN ×2 (13:41)
--- NOTE | 2018-11-20 14:41 | Internal Med Progress Note ---
Hospitalist Progress Note - Encounter Date of Encounter: 11/20/18 Time of Encounter: 14:37 - Subjective Interval History: I have seen and evaluated the patient at bedside, post [facility]. patient reports feeling nauseated, denies chest pain, or shortness of breath. - Exam Vitals: Temp Pulse Resp BP Pulse Ox 97.6 F 83 16 156/84 98 11/20/18 06:53 11/20/18 13:20 11/20/18 12:33 11/20/18 12:33 11/20/18 12:33 Exam: Vitals: Reviewed General: Alert and oriented x4. In mild distress due to nausea. Cardiovascular: RRR, normal S1 & S2, no rubs, murmurs or gallops. Lungs: CTA b/l, no rales or crackles. Abdomen: Obese, soft, non-tender, no rigidity. Extremities: trace edema on the lower ext b/l. Neurological: No focal neurological abnormalities Rest of the physical exam is non contributory - Assessment and Plan (1) Acute exacerbation of chronic obstructive airways disease Current Visit: No Status: Resolved Assessment and Plan: chest is clear to auscultation b/l. sputum culture: strenotrophomonas mlatophilia Plan: on Levofloxacin 750mg/PO daily. c/w prednisone 40mg/PO daily plus bronchodilators scheduled Q4RT. and spiriva. incentive spirometry (2) Acute on chronic HFrEF (heart failure with reduced ejection fraction) Current Visit: Yes Status: Acute Assessment and Plan: Patient volume overloaded. total negative balance of 4.7 litters. weight on admission 80.4kg, today 76.6kg. [facility] nonobstructive CAD, no intervention. TTE EF 25%. 13 beat NSVT yesterday. Plan On strict intake and out. fluids restriction to 1.5 litters a day c/w metoprolol 100mg/PO daily and furosemide 40mg/IV daily. started on lisinopril 2.5mg/PO daily. cardiology recommendations appreciated. LifeVest recommended by cardiology. 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 resume warfarin today, per pharmacy protocol. (4) Atrial fibrillation Current Visit: No Status: Chronic Assessment and Plan: Rate controlled. On metoprolol 100mg/PO daily. On heparin but held for 4 hour post LHC. will resume warfarin tonight. (5) Diabetes mellitus Current Visit: No Status: Chronic Assessment and Plan: blood sugar well controlled. c/w levemir 20mg units subq BID. c/w lispro 8 units ac, plus lispro low dose sliding scale. (6) PAD (peripheral artery disease) Current Visit: No Status: Chronic Assessment and Plan: patient s/p right to left femoral-femoral bypass graft with 6 mm PTFE on 05/29/18. Plan On clopidogrel 75mg/PO daily. (7) Pneumonia Current Visit: No Status: Suspected Assessment and Plan: Urine for atypical organism: negative sputum culture: Stenotrophonomas maltophilia Plan: On levofloxacin 750mg/PO Q48hr. (8) EVARISTO (acute kidney injury) Current Visit: Yes Status: Resolved (9) Tobacco use Current Visit: No Status: Chronic DVT Prophylaxis: Intermittent pneumatic compression. - Summary of Assessment and Plan Summary of Assessment and Plan: Patient to remain in the hospital on heparin due to LA thrombus, on warfarin, INR not therapeutic. - Time Spent with Patient Total time spent is greater than 50% in coordination of care (as documented) at patient's floor/unit and/or counseling patient: Greater than 35 minutes (40) Plan of Care Discussed with: patient (and the nurse.) Internal Medicine: Result - Labs CBC & Chem 7: 11/20/18 06:31 11/20/18 06:31 Labs: Short CBC 11/20/18 Range/Units 06:31 WBC 14.4 H (4.3-11.1) K/mcL Hgb 12.3 (11.5-15.4) g/dL Hct 39.6 (35.3-44.9) % Plt Count 330 (140-400) K/mcL Neutrophils # 10.9 H (1.6-8.9) K/mcL BMP 11/20/18 06:31 Sodium 133 L Potassium 3.7 Chloride 92 L Carbon Dioxide 31 H BUN 43 H Creatinine 1.05 Glucose 194 H Calcium 9.6 - ABG Interpretation ABG results: ABG ABG pH 7.55 pH Units (7.32-7.45) H 11/18/18 11:20 ABG pCO2 53 mmHg (35-45) H 11/18/18 11:20 ABG pO2 61 mmHg (85-104) L 11/18/18 11:20 ABG O2 Saturation 93 % (95-98) L 11/18/18 11:20 PT/INR, D-dimer PT 11.8 Seconds (9.4-12.1) 11/20/18 06:31 Consult Discharge Plan - Plan Referrals: Marielle Wang, [employer]PLAY [employer]AN[employer] DESIGNER [Primary Care Provider] - _ (4) Atrial fibrillation Qualifiers: Atrial fibrillation type: chronic Qualified Code(s): I48.2 - Chronic atrial fibrillation (5) Diabetes mellitus Qualifiers: Diabetes mellitus type: type 2 Diabetes mellitus moth exterminator insulin use: with moth exterminator use Diabetes mellitus complication status: with hyperglycemia Qualified Code(s): E11.65 - Type 2 diabetes mellitus with hyperglycemia; Z79.4 - care home (current) use of insulin (7) Pneumonia Qualifiers: Pneumonia type: due to unspecified organism Laterality: unspecified laterality Lung location: unspecified part of lung Qualified Code(s): J18.9 - Pneumonia, unspecified organism
[2018-11-20] MEDS: Heparin 25,000 UNIT/250 ML D5W 25,000 UNIT/250 ML IV.SOLN IVC SCH ×2 (15:26)
[2018-11-20 16:30] LABS: Hematocrit 44.9 % (35.3-44.9); Hemoglobin 13.7 g/dL (11.5-15.4); Mean Corpuscular HGB Conc 30.5 g/dL (31.6-35.5); Mean Corpuscular Hemoglobin 25.4 pg (28.0-33.3); Mean Corpuscular Volume 83.1 fL (83.0-100.0); Mean Platelet Volume 9.4 fL (9.4-12.4); Platelet Count 351 K/mcL (140-400); Red Cell Distribution Width 17.2 % (11.5-14.5); White Blood Count 18.1 K/mcL (4.3-11.1)
[2018-11-20 16:42] LABS: Heparin anti-factor XA UFH 0.1 IU/mL (0.30-0.70)
[2018-11-20 16:43] LABS: Prothrombin Time 11.9 Seconds (9.4-12.1)
[2018-11-20] MEDS ORDERED: *HR* Warfarin 3 MG TABLET PO ONE (18:00)
[2018-11-20] MEDS: Warfarin perPT PO SCH (18:29)
[2018-11-20] MEDS ORDERED: Insulin LISPRO 300 UNITS/3 ML VIAL SQ ONE (23:08)
[2018-11-21] MEDS: *HR* HYDROcodone/Acet 7.5/325 mg TABLET PO PRN ×3 (02:56→16:55)
[2018-11-21 03:51] LABS: Basophils % 0.1 %; Hematocrit 39.5 % (35.3-44.9); Hemoglobin 12.6 g/dL (11.5-15.4); Immature Granulocytes % 0.7 % (0-4); Lymphocytes # 0.9 K/mcL (0.6-4.6); Lymphocytes % 5.5 %; Mean Corpuscular HGB Conc 31.9 g/dL (31.6-35.5); Mean Corpuscular Hemoglobin 25.8 pg (28.0-33.3); Mean Corpuscular Volume 80.9 fL (83.0-100.0); Mean Platelet Volume 9.3 fL (9.4-12.4); Monocytes # 1.1 K/mcL (0.0-1.3); Neutrophils # 13.4 K/mcL (1.6-8.9); Nucleated Red Blood Cells 0.1 /100 WBC (0); Platelet Count 384 K/mcL (140-400); Red Blood Count 4.88 M/mcL (3.82-4.97); Red Cell Distribution Width 16.9 % (11.5-14.5); Segmented Neutrophils % 86.7 %; White Blood Count 15.4 K/mcL (4.3-11.1)
[2018-11-21] MEDS: Ipratropium/Albuterol Neb 3 ML IH SCH ×6 (03:55→23:52)
[2018-11-21 04:06] LABS: BUN/Creatinine Ratio 41 (6-26); Blood Urea Nitrogen 29 mg/dL (8-23); Calcium 10.1 mg/dL (8.6-10.3); Carbon Dioxide 35 mEq/L (23-29); Chloride 88 mEq/L (98-107); Glucose 161 mg/dL (70-105); Magnesium 1.9 mg/dL (1.6-2.6); Osmolality,Calculated 287 (280-300); Phosphorous 5.6 mg/dL (2.7-4.5); Potassium 3.1 mEq/L (3.5-5.1); Sodium 134 mEq/L (136-145); eGFR For African Americans > 60 (> 60); eGFR For Non-African Americans > 60 (> 60)
[2018-11-21 04:10] LABS: Prothrombin Time 11.6 Seconds (9.4-12.1)
[2018-11-21] MEDS: Metoprolol XL (24 HR) Succ 50 MG TAB.ER.24H PO SCH (09:32)
[2018-11-21] MEDS: Insulin DETEMIR 100 UNIT/ML X5UNITS SQ SCH ×2 (09:33→21:09)
[2018-11-21] MEDS: Insulin LISPRO 300 UNITS/3 ML VIAL SQ SCH ×7 (09:34→21:14)
[2018-11-21] MEDS: levoFLOXacin 750 MG TABLET PO SCH (10:33)
[2018-11-21] MEDS: Torsemide 20 MG TABLET PO SCH ×2 (10:33→16:38)
--- NOTE | 2018-11-21 11:05 | Cardiology Progress Note ---
Date of Encounter: 11/21/18 Time of Encounter: 11:01 Assessment and Plan (1) HFrEF (heart failure with reduced ejection fraction) Current Visit: Yes Status: Acute Patient presented to the d/t supratherapeutic INR. Recent [facility] as outpatient demonstrating reduction in LVEF, 20-25% with severe global hypokinesis. Volume overload on admission. BNP 848 and CXR demonstrated pulmonary vascular congestion. Continue bilateral LE compression stockings. Diuresed on IV lasix, 40 mg BID. Reports symptoms improved. Now on PO Torsemide 40mg BID. I/O -5474mL. EF was previously 45-50%, now 25%. Given further reduced EF, recommended repeat LHC 11/20/18 nonobstructive CAD. No intervention. Left radial access site healing well. Moderate ecchymosis. Restrictions discussed. Hypokalemia noted with diuresis, on K supplements. Frequent ectopy noted on telemetry review, baseline rhythm A-Fib. Continue BB and ACEi. Strict I&Os, daily weights, Na/fluid restriction diet. 13 beat NSVT 11/19. Discussed and reviewed with Dr. Fuentes. Given CMP and NSVT, recommend lifevest. Pt noted to have SUZANNE thrombus earlier this month. I discussed increased CVA risk if she is shocked by her lifevest and her risk of sudden cardiac without lifevest. R/B/A discussed. Pt is agreeable to lifevest. Cardiology signing off. Reconsult PRN. Will coordinate outpt follow-up in 1 week. Will need to stay inpt for heparin bridge until INR 2-3 for SUZANNE thrombus. Qualifiers: Heart failure chronicity: acute on chronic Qualified Code(s): I50.23 - Acute on chronic systolic (congestive) heart failure (2) Atrial fibrillation Current Visit: No Status: Chronic Patient reports longstanding hx of afib. Previously on Eliquis; developed SUZANNE thrombus while on Eliquis therefore patient was transitioned to coumadin. Hx of small GI bleed at [facility], patient has been following with Dr. Bowie in the outpatient setting for Watchman evaluation. Developed supratherapeutic INR; likely d/t antibiotics. INR 12.9 upon admission with hemoptysis. INR now 1.0 (Coumadin held for LHC), patient started on IV heparin gtt as bridge. Coumadin now resumed. Needs to stay inpt for bridge. Heart rates controlled upon exam, continue BB. Qualifiers: Atrial fibrillation type: chronic Qualified Code(s): I48.2 - Chronic atrial fibrillation (3) NICM (nonischemic cardiomyopathy) Current Visit: Yes Status: Acute As above, EF 25%. C nonobstructive CAD. A-Fib is rate controlled. Diuresed. Continue BB and ACEi. Lifevest ordered as detailed above. Discussion w patient/family: The assessment and plan as outlined above was discussed with the patient and/or family members who expressed understanding and agreement. All questions were answered. Thank you for involving us in the care of your patient. Please call with any questions. I will discuss all the above with Dr. Fuentes and make changes as necessary. Subjective Principal diagnosis: Supratherapeutic INR, CHF Interval history: No acute complaints this AM. Objective Vital Signs, Last 4 Hours Resp Pulse Ox 11/21/18 07:17 16 91 Vital Signs Temp Pulse Resp BP Pulse Ox 11/21/18 10:58 96 180/90 98 11/21/18 07:17 16 91 11/21/18 06:39 101 166/73 90 11/21/18 04:09 97.7 F 93 20 169/88 97 11/21/18 03:56 16 99 11/21/18 00:21 98 F 11/20/18 23:51 18 97 11/20/18 21:03 95 11/20/18 20:33 98.2 F 98 18 162/97 95 11/20/18 16:15 86 18 168/84 98 11/20/18 15:45 18 95 11/20/18 13:20 83 11/20/18 13:07 87 11/20/18 12:45 78 11/20/18 12:33 78 16 156/84 98 11/20/18 12:15 74 16 153/72 97 11/20/18 11:57 78 16 160/81 97 11/20/18 11:42 71 16 155/85 100 11/20/18 11:31 16 97 11/20/18 11:25 70 16 154/82 100 11/20/18 11:05 70 16 154/80 97 Intake and Output 11/20/18 11/21/18 11/21/18 23:59 07:59 15:59 Intake Total 50 / 300 85 / 205 120 / 205 Output Total 650 / 2150 350 / 350 Balance -600 / -1850 -265 / -145 120 / -145 Intake: IV Fluids 50 / 300 85 / 85 Heparin 25,000 UNIT/250 ML D5W 50 / 50 85 / 85 25,000 unit In 250 ml @ 14 UNIT /KG/HR 10.724 mls/hr IVC . [id number] [facility] Rx#:[id number] Oral 0 / 0 120 / 120 Output: Urine 650 / 2150 350 / 350 Other: Meal Breakfast Percent of Meal Consumed 90% # Voids 1 Weight 70.2 kg Blood Glucose* 202 141 Patient Weight 11/21/18 23:59 Weight 70.2 kg General: Conversant, No Apparent Distress HEENT: Atraumatic, Normocephaly, Mucus Membranes Moist Neck: No JVD, Normal carotid pulses Cardiac: Other (irregularly irregular) Lungs: Other (diminished) Neuro: Alert and responsive, No focal deficits noted Abdomen: Soft, Non-Tender Skin: No rashes noted on visualized skin Musculoskeletal: No Chest Wall Tenderness Extremities: No Clubbing, No Cyanosis, No Edema, Normal Pulses Results 11/21/18 03:22 11/21/18 03:22 Lab Results 11/20/18 11/20/18 11/21/18 16:14 16:14 03:22 WBC 18.1 H Hgb 13.7 Hct 44.9 Plt Count 351 INR 1.0 1.0 Sodium Potassium Chloride Carbon Dioxide BUN Creatinine Glucose Calcium Magnesium 11/21/18 11/21/18 03:22 03:22 WBC 15.4 H Hgb 12.6 Hct 39.5 Plt Count 384 INR Sodium 134 L Potassium 3.1 L Chloride 88 L Carbon Dioxide 35 H BUN 29 H Creatinine 0.71 Glucose 161 H Calcium 10.1 Magnesium 1.9 Short CBC 11/21/18 11/20/18 Range/Units 03:22 16:14 WBC 15.4 H 18.1 H (4.3-11.1) K/mcL Hgb 12.6 13.7 (11.5-15.4) g/dL Hct 39.5 44.9 (35.3-44.9) % Plt Count 384 351 (140-400) K/mcL Neutrophils # 13.4 H (1.6-8.9) K/mcL BMP 11/21/18 Range/Units 03:22 Sodium 134 L (136-145) mEq/L Potassium 3.1 L (3.5-5.1) mEq/L Chloride 88 L (98-107) mEq/L Carbon Dioxide 35 H (23-29) mEq/L BUN 29 H (8-23) mg/dL Creatinine 0.71 (0.60-1.20) mg/dL Glucose 161 H (70-105) mg/dL Calcium 10.1 (8.6-10.3) mg/dL Active Medications Hydrocodone Bitart/Acetaminophen ([place] 7.5-325 Mg) 1 tab PO Q4H PRN PRN Reason: Pain Stop: 05/16/19 23:27 Last Admin: 11/21/18 10:33 Dose: 1 tab Documented by: Albuterol/Ipratropium (Duoneb) 3 ml IH [id number] [facility] Stop: 05/16/19 20:46 Last Admin: 11/21/18 07:17 Dose: 3 ml Documented by: Clopidogrel Bisulfate (Plavix) 75 mg PO DAILY [facility] Stop: 05/17/19 09:01 Last Admin: 11/21/18 09:33 Dose: 75 mg Documented by: Dextrose/Water (Dextrose 50% (Syg)) 25 ml IVP AD PRN PRN Reason: Hypoglycemia Stop: 05/16/19 20:45 Glucagon (Glucagen) 1 mg IM ONCE PRN PRN Reason: Hypoglycemia Stop: 05/16/19 20:45 Glucose (Gluctose) 15 gm PO ONCE PRN PRN Reason: Hypoglycemia Stop: 05/16/19 20:45 Glucose (Gluctose) 30 gm PO ONCE PRN PRN Reason: Hypoglycemia Stop: 05/16/19 20:45 Heparin Sodium (Porcine) (Heparin) 5,400 unit 70 unit/kg (5400 unit) IVP Q6HR PRN PRN Reason: SEE COMMENTS Stop: 05/22/19 13:42 Heparin Sodium (Porcine) (Heparin) 2,700 unit 35 unit/kg (2700 unit) IVP Q6H PRN PRN Reason: SEE COMMENTS Stop: 05/22/19 13:42 Dextrose (Dextrose 5%) 1,000 mls @ 100 mls/hr IVC .Q10H PRN PRN Reason: HYPOGLYCEMIA Stop: 05/16/19 20:45 Heparin Sodium/Dextrose (Heparin 25,000 Unit/250 Ml D5w) 25,000 unit in 250 mls @ 10.724 mls/hr IVC .[id number] [facility]; Protocol Stop: 05/22/19 13:46 Last Titration: 11/21/18 04:18 Dose: 13.97 unit/kg/hr, 10.7 mls/hr Documented by: Insulin Detemir (Levemir) 20 unit SQ BID [facility] Stop: 05/20/19 09:01 Last Admin: 11/21/18 09:33 Dose: 20 unit Documented by: Insulin Human Lispro (Humalog) 0 units SQ TIDWM [facility]; Protocol Stop: 05/17/19 08:01 Last Admin: 11/21/18 09:34 Dose: 6 units Documented by: Insulin Human Lispro (Humalog) 0 units SQ HS [facility]; Protocol Stop: 05/17/19 21:01 Last Admin: 11/20/18 20:54 Dose: 2 units Documented by: Insulin Human Lispro (Humalog) 8 units SQ TIDWM [facility] Stop: 05/20/19 08:01 Last Admin: 11/21/18 09:35 Dose: Not Given Documented by: Levofloxacin (Levaquin) 750 mg PO DAILY [facility] Stop: 05/23/19 09:01 Last Admin: 11/21/18 10:33 Dose: 750 mg Documented by: Lisinopril (Zestril) 2.5 mg PO DAILY [facility]; Protocol Stop: 05/23/19 09:01 Last Admin: 11/21/18 09:32 Dose: 2.5 mg Documented by: Metoprolol Succinate (Toprol Xl) 100 mg PO DAILY [facility] Stop: 05/17/19 09:01 Last Admin: 11/21/18 09:32 Dose: 100 mg Documented by: Naloxone HCl (Narcan) 0.4 mg IVP Q2MPRN PRN PRN Reason: SEE COMMENTS Stop: 05/16/19 20:40 Potassium Chloride (Potassium Chloride) 40 meq PO BID [facility] Stop: 05/23/19 09:01 Last Admin: 11/21/18 09:33 Dose: 40 meq Documented by: Promethazine HCl (Phenergan) 12.5 mg IVP Q6HR PRN PRN Reason: Nausea And Vomiting Stop: 05/22/19 13:37 Last Admin: 11/20/18 15:26 Dose: 12.5 mg Documented by: Torsemide (Demadex) 40 mg PO BIDDIURETIC [facility] Stop: 05/23/19 09:01 Last Admin: 11/21/18 10:33 Dose: 40 mg Documented by: Warfarin Sodium (Coumadin Perpt) 1 each PO DAILY@1800 [facility]; Protocol Stop: 05/22/19 18:01 Last Admin: 11/20/18 18:29 Dose: Not Given Documented by: Warfarin Sodium (Coumadin) 3 mg PO 1800 [facility]; Protocol Stop: 11/21/18 18:01 - EKG Interpretation EKG results cardiology: other (12 hr tele AVG HR 92, A-Fib) Consult Discharge Plan - Plan Additional Instructions: RISK FACTORS: STOP SMOKING: If you smoke, STOP. Smoking or tobacco use significantly increases your risk of heart disease because nicotine causes the arteries to narrow or constrict. It also causes fats to stick to the artery. Your chances of having a heart attack are greatly increased if you continue to smoke. For more information, call the education line for smoking cessation 7-161-PGYVLEF EAT A LOW FAT/CHOLESTEROL/SODIUM DIET: This diet may help reduce your chances of having a heart attack. LIFTING: With affected extremity: Avoid bending, pushing off and lifting more than 2 pounds for 24 hours The following 48 hours, avoid lifting anything more than 5 pounds Avoid strenuous activity or repetitive motions ACTIVITY: You may walk or climb stairs as tolerated You can resume sexual activity as tolerated In general, you are encouraged to engage in a minimum of 30 minutes or more of moderate intensity physical activity, such as brisk walking, daily or at least 3-4 times weekly BATHING Do not submerge the site into water (bath tub, hot tub, swimming pool, dishes) for 1 week. This can be a source for infection into the blood stream. You may shower after 24 hours SITE CARE: After 24 hours, you may remove the dressing and leave the site open to air. Keep the site clean and dry. Clean gently and pat dry. You can expect bruising and tenderness that gradually resolve within a week or two. Return to work as instructed per your physician Resume driving as instructed per physician Keep all scheduled follow up appointments Resume medications as instructed IMPORTANT: If prescribed a Platelet Aggregation Inhibitor such as, Plavix, Brilinta or Effient: Duration of therapy is minimum one year These medications are often used in combination with Aspirin in prevention of future heart attacks Never discontinue unless consult with your Associate Merchandiser STROKE (CVA) Risk factors for a stroke are: Age, cigarette smoking, diabetes, excessive alcohol consumption, family history, high blood pressure, overweight, physical inactivity, prior stroke, heart attack, diagnosis of carotid artery stenosis or other artery disease. Warning signs: Sudden numbness or weakness of the face, arm or leg; especially on one side of the body, sudden confusion, trouble speaking or understanding, sudden trouble seeing in one or both eyes, sudden trouble walking, dizziness, loss of balance or coordination, sudden severe headache with no cause. Call 911 or go to the Emergency Room. CONGESTIVE HEART FAILURE: If you have been diagnosed with Congestive Heart Failure (CHF) and your sy mptoms return, make an appointment with your physician Weigh yourself daily. Notify your physician if you have a weight gain of two or more pounds in one day or five or more pounds in one week. If you experience any difficulty breathing, please call 911 BLEEDING: Although the risk of bleeding is minimal, it can happen. If you have any bleeding from the site, apply firm pressure above the puncture site for 10-15 minutes. If the bleeding does not stop, continue manual pressure and call 911 CARDIAC REHABILITATION: If you have had a heart attack or cardiac stents placed, please ask your painter barrel if Cardiac Rehabilitation is right for you. Cardiac Rehabilitation is recommended, beneficial to your health and can improve the following: strengthen your heart, improve ejection fraction, weight reduction, decrease cholesterol levels, lower blood pressure, lower blood sugar, improve stamina and enhance self-image. If you have any questions please call [facility] at [phone]. Contact [facility] ( ) if: You develop a fever greater than 101 degrees Fahrenheit Your site becomes reddened or has any drainage You have an increase in pain or burning at the site or if a large knot forms at the site. If you experience chest pain, shortness of breath, dizziness, or extreme tiredness, stop the activity and rest. Please notify [facility] office if you experience any of these symptoms and they are not relieved by rest please call 911! Referrals: Marielle Wang, HEADSTART TEACHER [Primary Care Provider] -
[2018-11-21] MEDS: Heparin 25,000 UNIT/250 ML D5W 25,000 UNIT/250 ML IV.SOLN IVC SCH (16:39)
[2018-11-21] MEDS: Warfarin perPT PO SCH (16:40)
[2018-11-21] MEDS ORDERED: *HR* Warfarin 3 MG TABLET PO ONE (18:00)
--- NOTE | 2018-11-21 20:05 | Internal Med Progress Note ---
Hospitalist Progress Note - Encounter Date of Encounter: 11/21/18 Time of Encounter: 19:56 - Subjective Interval History: Anxious to go home. Denies shortness of breath. Has been complaining of a lot of pain and asking for pain meds but getting overly sedated when given pain meds. - Exam Vitals: Temp Pulse Resp BP Pulse Ox 98.8 F 83 16 149/71 94 11/21/18 18:55 11/21/18 18:55 11/21/18 18:55 11/21/18 18:55 11/21/18 18:55 Exam: General: Ill-appearing and in no acute distress HEENT: No erythema of posterior pharynx. No exudates. Lymphatics: No mandibular or cervical lymphadenopathy Cardiovascular: RRR. No murmurs. No chest wall tenderness. Lungs: Clear to auscelltation bilaterally. Regular chest rise. Abdomen: Non-tender. No rebound or gaurding. Nl bowel sounds. Extremities: No edema. 2+ pulses radial and pedal pulses Skin: No rahses, abrasions, or contusions. Nl cap refill. Psych: Nl attention. A&Ox3 Neuro: manager mba II-XII intact. 5/5 strength. Sensation to light touch and pinprick intact. 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 (4) Atrial fibrillation Current Visit: No Status: Chronic (5) Diabetes mellitus Current Visit: No Status: Chronic (6) PAD (peripheral artery disease) Current Visit: No Status: Chronic (7) Pneumonia Current Visit: No Status: Suspected (8) EVARISTO (acute kidney injury) Current Visit: Yes Status: Resolved (9) Tobacco use Current Visit: No Status: Chronic - Summary of Assessment and Plan Summary of Assessment and Plan: Acute on Chronic Hypoxic Respiratory Failure Acute on Chronic Systolic Heart Failure Community Acquired Pneumonia Patient history of chronic hypoxic respiratory failure secondary to COPD and untreated BATSHEVA and newly diagnosed systolic heart failure presented with acute on chronic hypoxic respiratory failure in the setting of gross hypervolemia. -Found to have newly diagnosed systolic heart failure: [facility] with non-obstructive CAD EF 25% on TTE with no significant valvular dysfunction Appears to be at dry weight -Also growing strenotrophomonas mlatophilia from sputum cx so being treated for CAP as well PLAN: - Torsemide 40mg bid - 6mn walk test for O2 qualification - Strict i/o's and daily weights - Metoprolol and Lisinopril - Lifevest recommended by cardiology at time of discharge - Levaquin x5 days for CAP Hx of LA Thrombus Has failed NOAC therapy for this and started on warfarin. - Will inquire with cardiology if they want inpatient bridging or if bridging can be done on an outpatient basis PAD - Continue Plavix Internal Medicine: Result - Labs CBC & Chem 7: 11/21/18 03:22 11/21/18 03:22 Labs: Short CBC 11/21/18 Range/Units 03:22 WBC 15.4 H (4.3-11.1) K/mcL Hgb 12.6 (11.5-15.4) g/dL Hct 39.5 (35.3-44.9) % Plt Count 384 (140-400) K/mcL Neutrophils # 13.4 H (1.6-8.9) K/mcL BMP 11/21/18 03:22 Sodium 134 L Potassium 3.1 L Chloride 88 L Carbon Dioxide 35 H BUN 29 H Creatinine 0.71 Glucose 161 H Calcium 10.1 - ABG Interpretation ABG results: ABG ABG pH 7.55 pH Units (7.32-7.45) H 11/18/18 11:20 ABG pCO2 53 mmHg (35-45) H 11/18/18 11:20 ABG pO2 61 mmHg (85-104) L 11/18/18 11:20 ABG O2 Saturation 93 % (95-98) L 11/18/18 11:20 PT/INR, D-dimer PT 11.6 Seconds (9.4-12.1) 11/21/18 03:22 Consult Discharge Plan - Plan Additional Instructions: RISK FACTORS: STOP SMOKING: If you smoke, STOP. Smoking or tobacco use significantly increases your risk of heart disease because nicotine causes the arteries to narrow or constrict. It also causes fats to stick to the artery. Your chances of having a heart attack are greatly increased if you continue to smoke. For more information, call the education line for smoking cessation 2-326-ISMNPXH EAT A LOW FAT/CHOLESTEROL/SODIUM DIET: This diet may help reduce your chances of having a heart attack. LIFTING: With affected extremity: Avoid bending, pushing off and lifting more than 2 pounds for 24 hours The following 48 hours, avoid lifting anything more than 5 pounds Avoid strenuous activity or repetitive motions ACTIVITY: You may walk or climb stairs as tolerated You can resume sexual activity as tolerated In general, you are encouraged to engage in a minimum of 30 minutes or more of moderate intensity physical activity, such as brisk walking, daily or at least 3-4 times weekly BATHING Do not submerge the site into water (bath tub, hot tub, swimming pool, dishes) for 1 week. This can be a source for infection into the blood stream. You may shower after 24 hours SITE CARE: After 24 hours, you may remove the dressing and leave the site open to air. Keep the site clean and dry. Clean gently and pat dry. You can expect bruising and tenderness that gradually resolve within a week or two. Return to work as instructed per your physician Resume driving as instructed per physician Keep all scheduled follow up appointments Resume medications as instructed IMPORTANT: If prescribed a Platelet Aggregation Inhibitor such as, Plavix, Brilinta or Effient: Duration of therapy is minimum one year These medications are often used in combination with Aspirin in prevention of future heart attacks Never discontinue unless consult with your Staff Development Coordinator Rn STROKE (CVA) Risk factors for a stroke are: Age, cigarette smoking, diabetes, excessive alcohol consumption, family history, high blood pressure, overweight, physical inactivity, prior stroke, heart attack, diagnosis of carotid artery stenosis or other artery disease. Warning signs: Sudden numbness or weakness of the face, arm or leg; especially on one side of the body, sudden confusion, trouble speaking or understanding, sudden trouble seeing in one or both eyes, sudden trouble walking, dizziness, loss of balance or coordination, sudden severe headache with no cause. Call 911 or go to the Emergency Room. CONGESTIVE HEART FAILURE: If you have been diagnosed with Congestive Heart Failure (CHF) and your symptoms return, make an appointment with your physician Weigh yourself daily. Notify your physician if you have a weight gain of two or more pounds in one day or five or more pounds in one week. If you experience any difficulty breathing, please call 911 BLEEDING: Although the risk of bleeding is minimal, it can happen. If you have any bleeding from the site, apply firm pressure above the puncture site for 10-15 minutes. If the bleeding does not stop, continue manual pressure and call 911 CARDIAC REHABILITATION: If you have had a heart attack or cardiac stents placed, please ask your pretzel packer if Cardiac Rehabilitation is right for you. Cardiac Rehabilitation is recommended, beneficial to your health and can improve the following: strengthen your heart, improve ejection fraction, weight reduction, decrease cholesterol levels, lower blood pressure, lower blood sugar, improve stamina and enhance self-image. If you have any questions please call [facility] at [phone]. Contact [facility] ( ) if: You develop a fever greater than 101 degrees Fahrenheit Your site becomes reddened or has any drainage You have an increase in pain or burning at the site or if a large knot forms at the site. If you experience chest pain, shortness of breath, dizziness, or extreme tiredness, stop the activity and rest. Please notify [facility] office if you experience any of these symptoms and they are not relieved by rest please call 911! Referrals: Marielle Wang, JET PILOT [Primary Care Provider] - (4) Atrial fibrillation Qualifiers: Atrial fibrillation type: chronic Qualified Code(s): I48.2 - Chronic atrial fibrillation (5) Diabetes mellitus Qualifiers: Diabetes mellitus type: type 2 Diabetes mellitus intermediate school teacher insulin use: with intermediate school teacher use Diabetes mellitus complication status: with hyperglycemia Qu alified Code(s): E11.65 - Type 2 diabetes mellitus with hyperglycemia; Z79.4 - senior living (current) use of insulin (7) Pneumonia Qualifiers: Pneumonia type: due to unspecified organism Laterality: unspecified laterality Lung location: unspecified part of lung Qualified Code(s): J18.9 - Pneumonia, unspecified organism
[2018-11-21] MEDS: Prochlorperazine 10 MG/2 ML VIAL IVP PRN (23:30)
[2018-11-22] MEDS ORDERED: Prochlorperazine 10 MG/2 ML VIAL IVP PRN (03:34)
[2018-11-22 03:51] LABS: Hematocrit 44.1 % (35.3-44.9); Hemoglobin 13.7 g/dL (11.5-15.4); Mean Corpuscular HGB Conc 31.1 g/dL (31.6-35.5); Mean Corpuscular Hemoglobin 25.5 pg (28.0-33.3); Mean Corpuscular Volume 82.1 fL (83.0-100.0); Mean Platelet Volume 9.3 fL (9.4-12.4); Platelet Count 383 K/mcL (140-400); Red Blood Count 5.37 M/mcL (3.82-4.97); Red Cell Distribution Width 17.2 % (11.5-14.5); White Blood Count 18.3 K/mcL (4.3-11.1)
[2018-11-22 04:01] LABS: INR 1.1; Prothrombin Time 12.4 Seconds (9.4-12.1)
[2018-11-22] MEDS: Ipratropium/Albuterol Neb 3 ML IH SCH ×6 (04:08→23:23)
[2018-11-22 04:14] LABS: BUN/Creatinine Ratio 23 (6-26); Blood Urea Nitrogen 21 mg/dL (8-23); Calcium 9.8 mg/dL (8.6-10.3); Carbon Dioxide 37 mEq/L (23-29); Chloride 85 mEq/L (98-107); Glucose 130 mg/dL (70-105); Osmolality,Calculated 281 (280-300); Potassium 3.4 mEq/L (3.5-5.1); Sodium 133 mEq/L (136-145); eGFR For African Americans > 60 (> 60); eGFR For Non-African Americans > 60 (> 60)
[2018-11-22] MEDS: Prochlorperazine 10 MG/2 ML VIAL IVP PRN (04:15)
[2018-11-22] MEDS ORDERED: Ondansetron 4 MG/2 ML VIAL IVP PRN (08:57)
[2018-11-22] MEDS: Metoprolol XL (24 HR) Succ 50 MG TAB.ER.24H PO SCH (09:06)
[2018-11-22] MEDS: levoFLOXacin 750 MG TABLET PO SCH (09:07)
[2018-11-22] MEDS: Torsemide 20 MG TABLET PO SCH ×2 (09:07→17:36)
[2018-11-22] MEDS: Insulin LISPRO 300 UNITS/3 ML VIAL SQ SCH ×6 (09:07→20:48)
[2018-11-22] MEDS: *HR* HYDROcodone/Acet 7.5/325 mg TABLET PO PRN ×2 (11:18→15:40)
[2018-11-22] MEDS: Insulin DETEMIR 100 UNIT/ML X5UNITS SQ SCH ×2 (11:19→20:56)
--- NOTE | 2018-11-22 15:30 | Internal Med Progress Note ---
Hospitalist Progress Note - Encounter Date of Encounter: 11/22/18 Time of Encounter: 15:22 - Subjective Interval History: Seen at bedside this morning. Patient feels like her breathing is getting back to her baseline. Cardiology recommending patient stay inpatient for heparin bridge for warfarin therapy. - Exam Vitals: Temp Pulse Resp BP Pulse Ox 99.2 F 89 18 161/94 98 11/22/18 06:40 11/22/18 06:40 11/22/18 11:31 11/22/18 10:11 11/22/18 11:31 Exam: General: Ill-appearing and in no acute distress HEENT: No erythema of posterior pharynx. No exudates. Lymphatics: No mandibular or cervical lymphadenopathy Cardiovascular: RRR. No murmurs. No chest wall tenderness. Lungs: Clear to auscelltation bilaterally. Regular chest rise. Abdomen: Non-tender. No rebound or gaurding. Nl bowel sounds. Extremities: No edema. 2+ pulses radial and pedal pulses Skin: No rahses, abrasions, or contusions. Nl cap refill. Psych: Nl attention. A&Ox3 Neuro: product development worker II-XII intact. 5/5 strength. Sensation to light touch and pinprick intact. 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 (4) Atrial fibrillation Current Visit: No Status: Chronic (5) Diabetes mellitus Current Visit: No Status: Chronic (6) PAD (peripheral artery disease) Current Visit: No Status: Chronic (7) Pneumonia Current Visit: No Status: Suspected (8) EVARISTO (acute kidney injury) Current Visit: Yes Status: Resolved (9) Tobacco use Current Visit: No Status: Chronic DVT Prophylaxis: Heparin bridge with warfarin - Summary of Assessment and Plan Summary of Assessment and Plan: Acute on Chronic Hypoxic Respiratory Failure Acute on Chronic Systolic Heart Failure Community Acquired Pneumonia Patient history of chronic hypoxic respiratory failure secondary to COPD and untreated BATSHEVA and newly diagnosed systolic heart failure presented with acute on chronic hypoxic respiratory failure in the setting of gross hypervolemia. -Found to have newly diagnosed systolic heart failure: [facility] with non-obstructive CAD EF 25% on TTE with no significant valvular dysfunction Appears to be at dry weight -Also growing strenotrophomonas mlatophilia from sputum cx so being treated for CAP as well -Concerning the patient is descending significantly with movement. Chest x-ray with worsening right lower lobe infiltrate atelectasis versus pneumonia PLAN: - Torsemide 40mg bid - Incentive spirometry - BI ARCHITECT consult to assess aspiration risk - 6mn walk test for O2 qualification - Strict i/o's and daily weights - Metoprolol and Lisinopril - Lifevest recommended by cardiology at time of discharge - Levaquin x5 days for CAP Leukocytosis May be related to recent steroid use or aspiration events given recent CXR. - Trend - BI ARCHITECT eval Hx of LA Thrombus Has failed NOAC therapy for this and started on warfarin. - Cardiology recommending inpatient bridging PAD - Continue Plavix - Time Spent with Patient Total time spent is greater than 50% in coordination of care (as documented) at patient's floor/unit and/or counseling patient: Internal Medicine: Result - Labs CBC & Chem 7: 11/22/18 03:35 11/22/18 03:35 Labs: Short CBC 11/22/18 Range/Units 03:35 WBC 18.3 H (4.3-11.1) K/mcL Hgb 13.7 (11.5-15.4) g/dL Hct 44.1 (35.3-44.9) % Plt Count 383 (140-400) K/mcL [facility] 11/22/18 03:35 Sodium 133 L Potassium 3.4 L Chloride 85 L Carbon Dioxide 37 H BUN 21 Creatinine 0.92 Glucose 130 H Calcium 9.8 - ABG Interpretation ABG results: ABG ABG pH 7.55 pH Units (7.32-7.45) H 11/18/18 11:20 ABG pCO2 53 mmHg (35-45) H 11/18/18 11:20 ABG pO2 61 mmHg (85-104) L 11/18/18 11:20 ABG O2 Saturation 93 % (95-98) L 11/18/18 11:20 PT/INR, D-dimer PT 12.4 Seconds (9.4-12.1) H 11/22/18 03:35 - Impressions Impressions Chest X-Ray 11/22/18 08:09 IMPRESSION: Slightly increasing right basilar airspace opacity either atelectasis or pneumonia. D/ / Tatiana Nolasco MD / Tatiana Nolasco MD Interpreting Provider: Tatiana Nolasco MD Consult Discharge Plan - Plan Additional Instructions: RISK FACTORS: STOP SMOKING: If you smoke, STOP. Smoking or tobacco use significantly increases your risk of heart disease because nicotine causes the arteries to narrow or constrict. It also causes fats to stick to the artery. Your chances of having a heart attack are greatly increased if you continue to smoke. For more information, call the education line for smoking cessation 3-556-RCJXUUM EAT A LOW FAT/CHOLESTEROL/SODIUM DIET: This diet may help reduce your chances of having a heart attack. LIFTING: With affected extremity: Avoid bending, pushing off and lifting more than 2 pounds for 24 hours The following 48 hours, avoid lifting anything more than 5 pounds Avoid strenuous activity or repetitive motions ACTIVITY: You may walk or climb stairs as tolerated You can resume sexual activity as tolerated In general, you are encouraged to engage in a minimum of 30 minutes or more of moderate intensity physical activity, such as brisk walking, daily or at least 3-4 times weekly BATHING Do not submerge the site into water (bath tub, hot tub, swimming pool, dishes) for 1 week. This can be a source for infection into the blood stream. You may shower after 24 hours SITE CARE: After 24 hours, you may remove the dressing and leave the site open to air. Keep the site clean and dry. Clean gently and pat dry. You can expect bruising and tenderness that gradually resolve within a week or two. Return to work as instructed per your physician Resume driving as instructed per physician Keep all scheduled follow up appointments Resume medications as instructed IMPORTANT: If prescribed a Platelet Aggregation Inhibitor such as, Plavix, Brilinta or Effient: Duration of therapy is minimum one year These medications are often used in combination with Aspirin in prevention of future heart attacks Never discontinue unless consult with your Branch Operations Coordinator STROKE (CVA) Risk factors for a stroke are: Age, cigarette smoking, diabetes, excessive alcohol consumption, family history, high blood pressure, overweight, physical inactivity, prior stroke, heart attack, diagnosis of carotid artery stenosis or other artery disease. Warning signs: Sudden numbness or weakness of the face, arm or leg; especially on one side of the body, sudden confusion, trouble speaking or understanding, sudden trouble seeing in one or both eyes, sudden trouble walking, dizziness, loss of balance or coordination, sudden severe headache with no cause. Call 911 or go to the Emergency Room. CONGESTIVE HEART FAILURE: If you have been diagnosed with Congestive Heart Failure (CHF) and your symptoms return, make an appointment with your physician Weigh yourself daily. Notify your physician if you have a weight gain of two or more pounds in one day or five or more pounds in one week. If you experience any difficulty breathing, please call 911 BLEEDING: Although the risk of bleeding is minimal, it can happen. If you have any bleeding from the site, apply firm pressure above the puncture site for 10-15 minutes. If the bleeding does not stop, continue manual pressure and call 911 CARDIAC REHABILITATION: If you have had a heart attack or cardiac stents placed, please ask your buzzle buffer if Cardiac Rehabilitation is right for you. Cardiac Rehabilitation is recommended, beneficial to your health and can improve the following: strengthen your heart, improve ejection fraction, weight reduction, decrease cholesterol levels, lower blood pressure, lower blood sugar, improve stamina and enhance self-image. If you have any questions please call [facility] at [phone]. Contact [facility] ( ) if: You develop a fever greater than 101 degrees Fahrenheit Your site becomes reddened or has any drainage You have an increase in pain or burning at the site or if a large knot forms at the site. If you experience chest pain, shortness of breath, dizziness, or extreme tiredness, stop the activity and rest. Please notify [facility] office if you experience any of these symptoms and they are not relieved by rest please call 911! Referrals: Marielle Wang, GOGGLES ASSEMBLER [Primary Care Provider] - (4) Atrial fibrillation Qualifiers: Atrial fibrillation type: chronic Qualified Code(s): I48.2 - Chronic atrial fibrillation (5) Diabetes mellitus Qualifiers: Diabetes mellitus type: type 2 Diabetes mellitus long chain beamer insulin use: with long chain beamer use Diabetes mellitus complication status: with hyperglycemia Qu alified Code(s): E11.65 - Type 2 diabetes mellitus with hyperglycemia; Z79.4 - senior care (current) use of insulin (7) Pneumonia Qualifiers: Pneumonia type: due to unspecified organism Laterality: unspecified laterality Lung location: unspecified part of lung Qualified Code(s): J18.9 - Pneumonia, unspecified organism
[2018-11-22] MEDS: Heparin 25,000 UNIT/250 ML D5W 25,000 UNIT/250 ML IV.SOLN IVC SCH (15:41)
[2018-11-22] MEDS: Warfarin perPT PO SCH (17:39)
[2018-11-22] MEDS ORDERED: *HR* Warfarin 3 MG TABLET PO ONE (18:00)
[2018-11-22] MEDS: Naloxone 0.4 MG/ML INJ IVP PRN (21:04)
[2018-11-22] MEDS ORDERED: Acetaminophen 325 MG TABLET PO ONE (22:29)
[2018-11-23] MEDS: Ipratropium/Albuterol Neb 3 ML IH SCH ×6 (03:39→23:04)
[2018-11-23 04:18] LABS: INR 1.1; Prothrombin Time 12.6 Seconds (9.4-12.1)
[2018-11-23] MEDS: Insulin LISPRO 300 UNITS/3 ML VIAL SQ SCH ×4 (08:32→20:37)
[2018-11-23] MEDS: Torsemide 20 MG TABLET PO SCH ×2 (08:37→15:49)
[2018-11-23] MEDS: Metoprolol XL (24 HR) Succ 50 MG TAB.ER.24H PO SCH (08:38)
[2018-11-23] MEDS: levoFLOXacin 750 MG TABLET PO SCH (08:38)
[2018-11-23] MEDS: Insulin DETEMIR 100 UNIT/ML X5UNITS SQ SCH ×2 (08:38→20:41)
--- NOTE | 2018-11-23 10:38 | Internal Med Progress Note ---
Hospitalist Progress Note - Encounter Date of Encounter: 11/23/18 Time of Encounter: 10:37 - Subjective Interval History: Patient is anxious to go home but INR still not in therapeutic range still not in therapeutic range. Denies dyspnea. - Exam Vitals: Temp Pulse Resp BP Pulse Ox 98.1 F 93 16 126/81 97 11/23/18 07:22 11/23/18 07:22 11/23/18 08:43 11/23/18 08:43 11/23/18 08:43 Exam: General: Ill-appearing and in no acute distress HEENT: No erythema of posterior pharynx. No exudates. Lymphatics: No mandibular or cervical lymphadenopathy Cardiovascular: RRR. No murmurs. No chest wall tenderness. Lungs: Clear to auscelltation bilaterally. Regular chest rise. Abdomen: Non-tender. No rebound or gaurding. Nl bowel sounds. Extremities: No edema. 2+ pulses radial and pedal pulses Skin: No rahses, abrasions, or contusions. Nl cap refill. Psych: Nl attention. A&Ox3 Neuro: human resources consultant II-XII intact. 5/5 strength. Sensation to light touch and pinprick intact. 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 Assessment and Plan: (4) Atrial fibrillation Current Visit: No Status: Chronic (5) Diabetes mellitus Current Visit: No Status: Chronic (6) PAD (peripheral artery disease) Current Visit: No Status: Chronic (7) Pneumonia Current Visit: No Status: Suspected (8) EVARISTO (acute kidney injury) Current Visit: Yes Status: Resolved (9) Tobacco use Current Visit: No Status: Chronic DVT Prophylaxis: Heparin bridge with warfarin - Summary of Assessment and Plan Summary of Assessment and Plan: Acute on Chronic Hypoxic Respiratory Failure Acute on Chronic Systolic Heart Failure Community Acquired Pneumonia Patient history of chronic hypoxic respiratory failure secondary to COPD and untreated BATSHEVA and newly diagnosed systolic heart failure presented with acute on chronic hypoxic respiratory failure in the setting of gross hypervolemia. -Found to have newly diagnosed systolic heart failure: [facility] with non-obstructive CAD EF 25% on TTE with no significant valvular dysfunction Appears to be at dry weight -Also growing strenotrophomonas mlatophilia from sputum cx so being treated for CAP as well -Evaluated by POLYSOMNOGRAPHER yest and no evidence of aspiration. Breathing continues to improve PLAN: - Torsemide 40mg bid - 6mn walk test for O2 qualification - Strict i/o's and daily weights - Metoprolol and Lisinopril - Lifevest recommended by cardiology at time of discharge - Levaquin x5 days for CAP Leukocytosis May be related to recent steroid use. - F/u CBC from today Hx of LA Thrombus Has failed NOAC therapy for this and started on warfarin. Cardiology recommending inpatient bridging. Has been difficult to get patient back in therapeutic range. Going up on warfarin dose today. - 6mg of warfarin today PAD - Continue Plavix Internal Medicine: Result - Labs CBC & Chem 7: 11/22/18 03:35 11/22/18 03:35 - ABG Interpretation ABG results: ABG ABG pH 7.55 pH Units (7.32-7.45) H 11/18/18 11:20 ABG pCO2 53 mmHg (35-45) H 11/18/18 11:20 ABG pO2 61 mmHg (85-104) L 11/18/18 11:20 ABG O2 Saturation 93 % (95-98) L 11/18/18 11:20 PT/INR, D-dimer PT 12.6 Seconds (9.4-12.1) H 11/23/18 03:45 Consult Discharge Plan - Plan Additional Instructions: RISK FACTORS: STOP SMOKING: If you smoke, STOP. Smoking or tobacco use significantly increases your risk of heart disease because nicotine causes the arteries to narrow or constrict. It also causes fats to stick to the artery. Your chances of having a heart attack are greatly increased if you continue to smoke. For more information, call the education line for smoking cessation 6-434-OCYOSJL EAT A LOW FAT/CHOLESTEROL/SODIUM DIET: This diet may help reduce your chances of having a heart attack. LIFTING: With affected extremity: Avoid bending, pushing off and lifting more than 2 pounds for 24 hours The following 48 hours, avoid lifting anything more than 5 pounds Avoid strenuous activity or repetitive motions ACTIVITY: You may walk or climb stairs as tolerated You can resume sexual activity as tolerated In general, you are encouraged to engage in a minimum of 30 minutes or more of moderate intensity physical activity, such as brisk walking, daily or at least 3-4 times weekly BATHING Do not submerge the site into water (bath tub, hot tub, swimming pool, dishes) for 1 week. This can be a source for infection into the blood stream. You may shower after 24 hours SITE CARE: After 24 hours, you may remove the dressing and leave the site open to air. Keep the site clean and dry. Clean gently and pat dry. You can expect bruising and tenderness that gradually resolve within a week or two. Return to work as instructed per your physician Resume driving as instructed per physician Keep all scheduled follow up appointments Resume medications as instructed IMPORTANT: If prescribed a Platelet Aggregation Inhibitor such as, Plavix, Brilinta or Effient: Duration of therapy is minimum one year These medications are often used in combination with Aspirin in prevention of future heart attacks Never discontinue unless consult with your Program Facilitator STROKE (CVA) Risk factors for a stroke are: Age, cigarette smoking, diabetes, excessive alcohol consumption, family history, high blood pressure, overweight, physical inactivity, prior stroke, heart attack, diagnosis of carotid artery stenosis or other artery disease. Warning signs: Sudden numbness or weakness of the face, arm or leg; especially on one side of the body, sudden confusion, trouble speaking or understanding, sudden trouble seeing in one or both eyes, sudden trouble walking, dizziness, loss of balance or coordination, sudden severe headache with no cause. Call 911 or go to the Emergency Room. CONGESTIVE HEART FAILURE: If you have been diagnosed with Congestive Heart Failure (CHF) and your symptoms return, make an appointment with your physician Weigh yourself daily. Notify your physician if you have a weight gain of two or more pounds in one day or five or more pounds in one week. If you experience any difficulty breathing, please call 911 BLEEDING: Although the risk of bleeding is minimal, it can happen. If you have any bleeding from the site, apply firm pressure above the puncture site for 10-15 minutes. If the bleeding does not stop, continue manual pressure and call 911 CARDIAC REHABILITATION: If you have had a heart attack or cardiac stents placed, please ask your electronics maintenance technician if Cardiac Rehabilitation is right for you. Cardiac Rehabilitation is recommended, beneficial to your health and can improve the following: strengthen your heart, improve ejection fraction, weight reduction, decrease cholesterol levels, lower blood pressure, lower blood sugar, improve stamina and enhance self-image. If you have any questions please call [facility] at [phone]. Contact [facility] ( ) if: You develop a fever greater than 101 degrees Fahrenheit Your site becomes reddened or has any drainage You have an increase in pain or burning at the site or if a large knot forms at the site. If you experience chest pain, shortness of breath, dizziness, or extreme tiredness, stop the activity and rest. Please notify [facility] office if you experience any of these symptoms and they are not relieved by rest please call 911! Referrals: Marielle Wang, RATE ENGINEER [Primary Care Provider] - (4) Atrial fibrillation Qualifiers: Atrial fibrillation type: chronic Qualified Code(s): I48.2 - Chronic atrial fibrillation (5) Diabetes mellitus Qualifiers: Diabetes mellitus type: type 2 Diabetes mellitus long distance operator insulin use: with long distance operator use Diabetes mellitus complication status: with hyperglycemia Qualified Code(s): E11.65 - Type 2 diabetes mellitus with hyperglycemia; Z79.4 - software design engineer (current) use of insulin (7) Pneumonia Qualifiers: Pneumonia type: due to unspecified organism Laterality: unspecified laterality Lung location: unspecified part of lung Qualified Code(s): J18.9 - Pneumonia, unspecified organism
[2018-11-23] MEDS: Heparin 25,000 UNIT/250 ML D5W 25,000 UNIT/250 ML IV.SOLN IVC SCH (11:24)
[2018-11-23 12:03] LABS: Hematocrit 44.9 % (35.3-44.9); Hemoglobin 13.9 g/dL (11.5-15.4); Mean Corpuscular Hemoglobin 25.9 pg (28.0-33.3); Mean Corpuscular Volume 83.6 fL (83.0-100.0); Mean Platelet Volume 8.9 fL (9.4-12.4); Platelet Count 327 K/mcL (140-400); Red Blood Count 5.37 M/mcL (3.82-4.97); Red Cell Distribution Width 17.2 % (11.5-14.5); White Blood Count 14.6 K/mcL (4.3-11.1)
[2018-11-23 12:20] LABS: BUN/Creatinine Ratio 24 (6-26); Blood Urea Nitrogen 18 mg/dL (8-23); Calcium 9.4 mg/dL (8.6-10.3); Carbon Dioxide 38 mEq/L (23-29); Chloride 88 mEq/L (98-107); Glucose 125 mg/dL (70-105); Osmolality,Calculated 273 (280-300); Potassium 3.8 mEq/L (3.5-5.1); Sodium 130 mEq/L (136-145); eGFR For African Americans > 60 (> 60); eGFR For Non-African Americans > 60 (> 60)
[2018-11-23] MEDS ORDERED: Warfarin perPT PO PRN (15:30)
[2018-11-23] MEDS: *HR* HYDROcodone/Acet 7.5/325 mg TABLET PO PRN (15:49)
[2018-11-23] MEDS ORDERED: *HR* Warfarin 3 MG TABLET PO ONE (18:00)
[2018-11-23] MEDS: Naloxone 0.4 MG/ML INJ IVP PRN (20:51)
--- NOTE | 2018-11-23 21:37 | Event Note ---
Date of Encounter: 11/23/18 Time of Encounter: 20:53 Alerted by pts. nurse VENKATESH Nguyen that the patient was lethargic w/current VS being 98.4 temp, 67 heart rate, SPO2 96% on 3L, 14 RR, and BP 86/50 manually. Nurse instructed to Narcan the pt. The same scenario occurred the previous night where the patient required Narcan after receiving opioids d/t lethargy. Patient is admitted for CHF and acute exacerbation of COPD and has a current EF of 20- 25% according to [facility] on 11/06/18. Nurse instructed to hold all BP and opioid medications. Hydrocodone order DCd. PATIENT IS NOT TO RECEIVE OPIOID MEDICATIONS D/T RESULTING LETHARGY AND HYPOTENSION REQUIRING FLUID RESUSCITATION W/SEVERELY REDUCED EF. Patient's chronic pain will be managed going forward w/lidocaine patches for back pain (which patient reports are working) and NON-OPIOIDS. Nurse instructed to continue monitoring this patient very closely and alert me immediately of any new or adverse changes.
[2018-11-24] MEDS: Ipratropium/Albuterol Neb 3 ML IH SCH ×6 (03:45→23:04)
[2018-11-24 05:02] LABS: INR 1.3; Prothrombin Time 14.9 Seconds (9.4-12.1)
[2018-11-24] MEDS: Insulin LISPRO 300 UNITS/3 ML VIAL SQ SCH ×4 (08:03→23:43)
[2018-11-24] MEDS: Torsemide 20 MG TABLET PO SCH ×2 (09:32→17:02)
[2018-11-24] MEDS: Metoprolol XL (24 HR) Succ 50 MG TAB.ER.24H PO SCH (09:32)
[2018-11-24] MEDS: Insulin DETEMIR 100 UNIT/ML X5UNITS SQ SCH ×2 (09:33→22:13)
[2018-11-24] MEDS: levoFLOXacin 750 MG TABLET PO SCH (09:33)
[2018-11-24] MEDS: Heparin 25,000 UNIT/250 ML D5W 25,000 UNIT/250 ML IV.SOLN IVC SCH (09:34)
[2018-11-24] MEDS ORDERED: Acetaminophen 325 MG TABLET PO PRN (10:21)
[2018-11-24] MEDS ORDERED: *HR* HYDROcodone/Acet 5/325 mg TABLET PO ONE (13:11)
--- NOTE | 2018-11-24 13:43 | Internal Med Progress Note ---
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 (4) Atrial fibrillation Current Visit: No Status: Chronic (5) Diabetes mellitus Current Visit: No Status: Chronic (6) PAD (peripheral artery disease) Current Visit: No Status: Chronic (7) Pneumonia Current Visit: No Status: Suspected (8) EVARISTO (acute kidney injury) Current Visit: Yes Status: Resolved (9) Tobacco use Current Visit: No Status: Chronic - Time Spent with Patient Total time spent is greater than 50% in coordination of care (as documented) at patient's floor/unit and/or counseling patient: Internal Medicine: Result - Labs CBC & Chem 7: 11/23/18 11:42 11/23/18 11:42 - ABG Interpretation ABG results: ABG ABG pH 7.55 pH Units (7.32-7.45) H 11/18/18 11:20 ABG pCO2 53 mmHg (35-45) H 11/18/18 11:20 ABG pO2 61 mmHg (85-104) L 11/18/18 11:20 ABG O2 Saturation 93 % (95-98) L 11/18/18 11:20 PT/INR, D-dimer PT 14.9 Seconds (9.4-12.1) H 11/24/18 04:40 Consult Discharge Plan - Plan Additional Instructions: RISK FACTORS: STOP SMOKING: If you smoke, STOP. Smoking or tobacco use significantly increases your risk of heart disease because nicotine causes the arteries to narrow or constrict. It also causes fats to stick to the artery. Your chances of having a heart attack are greatly increased if you continue to smoke. For more information, call the education line for smoking cessation 8-070-LAHKGSP EAT A LOW FAT/CHOLESTEROL/SODIUM DIET: This diet may help reduce your chances of having a heart attack. LIFTING: With affected extremity: Avoid bending, pushing off and lifting more than 2 pounds for 24 hours The following 48 hours, avoid lifting anything more than 5 pounds Avoid strenuous activity or repetitive motions ACTIVITY: You may walk or climb stairs as tolerated You can resume sexual activity as tolerated In general, you are encouraged to engage in a minimum of 30 minutes or more of moderate intensity physical activity, such as brisk walking, daily or at least 3-4 times weekly BATHING Do not submerge the site into water (bath tub, hot tub, swimming pool, dishes) for 1 week. This can be a source for infection into the blood stream. You may shower after 24 hours SITE CARE: After 24 hours, you may remove the dressing and leave the site open to air. Keep the site clean and dry. Clean gently and pat dry. You can expect bruising and tenderness that gradually resolve within a week or two. Return to work as instructed per your physician Resume driving as instructed per physician Keep all scheduled follow up appointments Resume medications as instructed IMPORTANT: If prescribed a Platelet Aggregation Inhibitor such as, Plavix, Brilinta or Effient: Duration of therapy is minimum one year These medications are often used in combination with Aspirin in prevention of future heart attacks Never discontinue unless consult with your Android Platform Developer STROKE (CVA) Risk factors for a stroke are: Age, cigarette smoking, diabetes, excessive alcohol consumption, family history, high blood pressure, overweight, physical inactivity, prior stroke, heart attack, diagnosis of carotid artery stenosis or other artery disease. Warning signs: Sudden numbness or weakness of the face, arm or leg; especially on one side of the body, sudden confusion, trouble speaking or understanding, sudden trouble seeing in one or both eyes, sudden trouble walking, dizziness, loss of balance or coordination, sudden severe headache with no cause. Call 911 or go to the Emergency Room. CONGESTIVE HEART FAILURE: If you have been diagnosed with Congestive Heart Failure (CHF) and your symptoms return, make an appointment with your physician Weigh yourself daily. Notify your physician if you have a weight gain of two or more pounds in one day or five or more pounds in one week. If you experience any difficulty breathing, please call 911 BLEEDING: Although the risk of bleeding is minimal, it can happen. If you have any bleeding from the site, apply firm pressure above the puncture site for 10-15 minutes. If the bleeding does not stop, continue manual pressure and call 911 CARDIAC REHABILITATION: If you have had a heart attack or cardiac stents placed, please ask your curator of photography and prints if Cardiac Rehabilitation is right for you. Cardiac Rehabilitation is recommended, beneficial to your health and can improve the following: strengthen your heart, improve ejection fraction, weight reduction, decrease cholesterol levels, lower blood pressure, lower blood sugar, improve stamina and enhance self-image. If you have any questions please call [facility] at [phone]. Contact [facility] ( ) if: You develop a fever greater than 101 degrees Fahrenheit Your site becomes reddened or has any drainage You have an increase in pain or burning at the site or if a large knot forms at the site. If you experience chest pain, shortness of breath, dizziness, or extreme tiredness, stop the activity and rest. Please notify [facility] office if you experience any of these symptoms and they are not relieved by rest please call 911! Referrals: Marielle Wang, SPAGHETTI MACHINE OPERATOR [Primary Care Provider] - (4) Atrial fibrillation Qualifiers: Atrial fibrillation type: chronic Qualified Code(s): I48.2 - Chronic atrial fibrillation (5) Diabetes mellitus Qualifiers: Diabetes mellitus type: type 2 Diabetes mellitus snf insulin use: with snf use Diabetes mellitus complication status: with hyperglycemia Qualified Code(s): E11.65 - Type 2 diabetes mellitus with hyperglycemia; Z79.4 - retirement (current) use of insulin (7) Pneumonia Qualifiers: Pneumonia type: due to unspecified organism Laterality: unspecified laterality Lung location: unspecified part of lung Qualified Code(s): J18.9 - Pneumonia, unspecified organism
--- NOTE | 2018-11-24 13:53 | Internal Med Progress Note ---
Hospitalist Progress Note - Encounter Date of Encounter: 11/24/18 Time of Encounter: 13:48 - Subjective Interval History: Patient very upset that she has to stay longer in order to get INR therapeutic. Family came in and talked her into staying in the hospital. Patient very insistent on wanting opioids for neck pain despite needing to get Narcan last n ight for somnolence. - Exam Vitals: Temp Pulse Resp BP Pulse Ox 97.7 F 108 16 185/98 94 11/24/18 10:45 11/24/18 12:00 11/24/18 12:01 11/24/18 12:00 11/24/18 12:01 Exam: General: Ill-appearing and in no acute distress HEENT: No erythema of posterior pharynx. No exudates. Lymphatics: No mandibular or cervical lymphadenopathy Cardiovascular: RRR. No murmurs. No chest wall tenderness. Lungs: Clear to auscelltation bilaterally. Regular chest rise. Abdomen: Non-tender. No rebound or gaurding. Nl bowel sounds. Extremities: No edema. 2+ pulses radial and pedal pulses Skin: No rahses, abrasions, or contusions. Nl cap refill. Psych: Nl attention. A&Ox3 Neuro: straight cutter machine II-XII intact. 5/5 strength. Sensation to light touch and pinprick intact. 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 Cardiology recommending inpatient bridging. -Has been difficult to get patient back in therapeutic range. -Patient very upset and insisting on leaving today. Family called her down and was agreeable to staying to get INR within therapeutic range -Discussed dosing with pharmacy and will try 9 mg warfarin today PLAN: - 9mg of warfarin today - Repeat INR tomorrow Chronic back pain Opioid sensitivity -Patient very sensitive to opioids but demands opioids for her back pain. -Needed Narcan last night because concerns for hypersomnolence with opioids. -Received lower dose of Percocet this morning during AMA discussion but will be avoiding opioid for pain control in the future PLAN: - Scheduled Tylenol - Lidocaine patch Acute on Chronic Hypoxic Respiratory Failure Acute on Chronic Systolic Heart Failure Community Acquired Pneumonia Patient history of chronic hypoxic respiratory failure secondary to COPD and un treated BATSHEVA and newly diagnosed systolic heart failure presented with acute on chronic hypoxic respiratory failure in the setting of gross hypervolemia. -Found to have newly diagnosed systolic heart failure: [facility] with non-obstructive CAD EF 25% on TTE with no significant valvular dysfunction Appears to be at dry weight -Also growing strenotrophomonas mlatophilia from sputum cx so being treated for CAP as well -Evaluated by TANK BUILDER yest and no evidence of aspiration. -Breathing now at baseline PLAN: - Torsemide 40mg bid - Strict i/o's and daily weights - Metoprolol and Lisinopril - Lifevest recommended by cardiology at time of discharge - Levaquin x5 days for CAP PAD - Continue Plavix Internal Medicine: Result - Labs CBC & Chem 7: 11/23/18 11:42 11/23/18 11:42 - ABG Interpretation ABG results: ABG ABG pH 7.55 pH Units (7.32-7.45) H 11/18/18 11:20 ABG pCO2 53 mmHg (35-45) H 11/18/18 11:20 ABG pO2 61 mmHg (85-104) L 11/18/18 11:20 ABG O2 Saturation 93 % (95-98) L 11/18/18 11:20 PT/INR, D-dimer PT 14.9 Seconds (9.4-12.1) H 11/24/18 04:40 Consult Discharge Plan - Plan Additional Instructions: RISK FACTORS: STOP SMOKING: If you smoke, STOP. Smoking or tobacco use significantly increases your risk of heart disease because nicotine causes the arteries to narrow or constrict. It also causes fats to stick to the artery. Your chances of having a heart attack are greatly increased if you continue to smoke. For more information, call the education line for smoking cessation 0-458-YAJCHWQ EAT A LOW FAT/CHOLESTEROL/SODIUM DIET: This diet may help reduce your chances of having a heart attack. LIFTING: With affected extremity: Avoid bending, pushing off and lifting more than 2 pounds for 24 hours The following 48 hours, avoid lifting anything more than 5 pounds Avoid strenuous activity or repetitive motions ACTIVITY: You may walk or climb stairs as tolerated You can resume sexual activity as tolerated In general, you are encouraged to engage in a minimum of 30 minutes or more of moderate intensity physical activity, such as brisk walking, daily or at least 3-4 times weekly BATHING Do not submerge the site into water (bath tub, hot tub, swimming pool, dishes) for 1 week. This can be a source for infection into the blood stream. You may shower after 24 hours SITE CARE: After 24 hours, you may remove the dressing and leave the site open to air. Keep the site clean and dry. Clean gently and pat dry. You can expect bruising and tenderness that gradually resolve within a week or two. Return to work as instructed per your physician Resume driving as instructed per physician Keep all scheduled follow up appointments Resume medications as instructed IMPORTANT: If prescribed a Platelet Aggregation Inhibitor such as, Plavix, Brilinta or Effient: Duration of therapy is minimum one year These medications are often used in combination with Aspirin in prevention of future heart attacks Never discontinue unless consult with your Utility Bill Complaints Investigator STROKE (CVA) Risk factors for a stroke are: Age, cigarette smoking, diabetes, excessive alcohol consumption, family history, high blood pressure, overweight, physical inactivity, prior stroke, heart attack, diagnosis of carotid artery stenosis or other artery disease. Warning signs: Sudden numbness or weakness of the face, arm or leg; especially on one side of the body, sudden confusion, trouble speaking or understanding, sudden trouble seeing in one or both eyes, sudden trouble walking, dizziness, loss of balance or coordination, sudden severe headache with no cause. Call 911 or go to the Emergency Room. CONGESTIVE HEART FAILURE: If you have been diagnosed with Congestive Heart Failure (CHF) and your symptoms return, make an appointment with your physician Weigh yourself daily. Notify your physician if you have a weight gain of two or more pounds in one day or five or more pounds in one week. If you experience any difficulty breathing, please call 911 BLEEDING: Although the risk of bleeding is minimal, it can happen. If you have any bleeding from the site, apply firm pressure above the puncture site for 10-15 minutes. If the bleeding does not stop, continue manual pressure and call 911 CARDIAC REHABILITATION: If you have had a heart attack or cardiac stents placed, please ask your art objects repairer if Cardiac Rehabilitation is right for you. Cardiac Rehabilitation is recommended, beneficial to your health and can improve the following: strengthen your heart, improve ejection fraction, weight reduction, decrease cholesterol levels, lower blood pressure, lower blood sugar, improve stamina and enhance self-image. If you have any questions please call [facility] at [phone]. Contact [facility] ( ) if: You develop a fever greater than 101 degrees Fahrenheit Your site becomes reddened or has any drainage You have an increase in pain or burning at the site or if a large knot forms at the site. If you experience chest pain, shortness of breath, dizziness, or extreme tiredness, stop the activity and rest. Please notify [facility] office if you experience any of these symptoms and they are not relieved by rest please call 911! Referrals: Marielle Wang, CIRCUS ARTIST [Primary Care Provider] - (4) Atrial fibrillation Qualifiers: Atrial fibrillation type: chronic Qualified Code(s): I48.2 - Chronic atrial fibrillation (5) Diabetes mellitus Qualifiers: Diabetes mellitus type: type 2 Diabetes mellitus terminal operations manager insulin use: with terminal operations manager use Diabetes mellitus complication status: with hyperglycemia Qualified Code(s): E11.65 - Type 2 diabetes mellitus with hyperglycemia; Z79.4 - MCFP (current) use of insulin (7) Pneumonia Qualifiers: Pneumonia type: due to unspecified organism Laterality: unspecified laterality Lung location: unspecified part of lung Qualified Code(s): J18.9 - Pneumonia, unspecified organism
[2018-11-24] MEDS ORDERED: *HR* Warfarin 3 MG TABLET PO SCH (18:00)
[2018-11-25] MEDS: Ipratropium/Albuterol Neb 3 ML IH SCH ×3 (03:43→11:13)
[2018-11-25 05:26] LABS: Hematocrit 37.2 % (35.3-44.9); Mean Corpuscular HGB Conc 30.4 g/dL (31.6-35.5); Mean Corpuscular Hemoglobin 25.7 pg (28.0-33.3); Mean Corpuscular Volume 84.7 fL (83.0-100.0); Mean Platelet Volume 9.4 fL (9.4-12.4); Platelet Count 207 K/mcL (140-400); Red Blood Count 4.39 M/mcL (3.82-4.97); Red Cell Distribution Width 17.5 % (11.5-14.5); White Blood Count 9.9 K/mcL (4.3-11.1)
[2018-11-25 05:39] LABS: BUN/Creatinine Ratio 19 (6-26); Blood Urea Nitrogen 18 mg/dL (8-23); Calcium 8.5 mg/dL (8.6-10.3); Carbon Dioxide 33 mEq/L (23-29); Chloride 94 mEq/L (98-107); Glucose 81 mg/dL (70-105); Osmolality,Calculated 265 (280-300); Sodium 127 mEq/L (136-145); eGFR For African Americans > 60 (> 60); eGFR For Non-African Americans 58 (> 60)
[2018-11-25 05:40] LABS: Hemoglobin 11.3 g/dL (11.5-15.4)
[2018-11-25] MEDS: Insulin LISPRO 300 UNITS/3 ML VIAL SQ SCH ×3 (08:28→17:31)
[2018-11-25] MEDS: Insulin DETEMIR 100 UNIT/ML X5UNITS SQ SCH (08:29)
[2018-11-25] MEDS: Metoprolol XL (24 HR) Succ 50 MG TAB.ER.24H PO SCH (08:29)
[2018-11-25] MEDS: Torsemide 20 MG TABLET PO SCH ×2 (08:29→17:31)
[2018-11-25 08:54] LABS: INR 1.7; Prothrombin Time 19.6 Seconds (9.4-12.1)
[2018-11-25] MEDS ORDERED: *HR* Warfarin 3 MG TABLET PO ONE (09:51)
[2018-11-25 11:07] VITALS: BP 167/96
[2018-11-25] MEDS: Heparin 25,000 UNIT/250 ML D5W 25,000 UNIT/250 ML IV.SOLN IVC SCH (12:00)
[2018-11-25 15:32] LABS: Prothrombin Time 22.2 Seconds (9.4-12.1)
[2018-11-25] MEDS ORDERED: Ipratropium/Albuterol Neb 3 ML IH PRN (16:16)
--- NOTE | 2018-11-25 16:40 | Discharge Summary ---
Date of Encounter: 11/25/18 Time of Encounter: 16:25 - Discharge Diagnosis (1) Acute and chronic respiratory failure with hypoxia Priority: Primary Status: Acute (2) Acute on chronic HFrEF (heart failure with reduced ejection fraction) Priority: Secondary Status: Acute (3) HFrEF (heart failure with reduced ejection fraction) Priority: Secondary Status: Acute Qualifiers: Heart failure chronicity: acute on chronic Qualified Code(s): I50.23 - Acute on chronic systolic (congestive) heart failure (4) Acute exacerbation of chronic obstructive airways disease Priority: Secondary Status: Inactive (5) LA thrombus Priority: Secondary Status: Chronic (6) Atrial fibrillation Priority: Secondary Status: Chronic Qualifiers: Atrial fibrillation type: chronic Qualified Code(s): I48.2 - Chronic atrial fibrillation (7) Diabetes mellitus Priority: Secondary Status: Chronic Qualifiers: Diabetes mellitus type: type 2 Diabetes mellitus jail insulin use: with terminal gauger use Diabetes mellitus complication status: with hyperglycemia Qualified Code(s): E11.65 - Type 2 diabetes mellitus with hyperglycemia; Z79.4 - retirement (current) use of insulin (8) PAD (peripheral artery disease) Priority: Secondary Status: Chronic (9) Pneumonia Priority: Secondary Status: Suspected Qualifiers: Pneumonia type: due to unspecified organism Laterality: unspecified laterality Lung location: unspecified part of lung Qualified Code(s): J18.9 - Pneumonia, unspecified organism (10) EVARISTO (acute kidney injury) Priority: Secondary Status: Resolved (11) Tobacco use Priority: Secondary Status: Chronic (12) NICM (nonischemic cardiomyopathy) Priority: Secondary Status: Acute (13) Supratherapeutic INR Priority: Secondary Status: Resolved Hospital course: Ms. Tafoya is a 67 year old female with history of LA thrombus on chronic warfarin chronic hypoxic respiratory failure secondary to COPD and untreated BATSHEVA and newly diagnosed systolic heart failure EF 25% (diagnosed in the outpatient setting) presented acute heart failure exacerbation and supratherapeutic INR. Patient underwent LHC to evaluate for ischemic etiology of heart failure but had nonobstructive CAD. Because of cardiomyopathy unclear but she will follow-up with cardiology for further investigations. Patient was diuresed to her dry weight. Also treated for pneumonia and COPD exacerbations while in the hospital. Patient has history of LA thrombus on chronic warfarin and had to be bridged with heparin before discharge. INR of 2.0 at time of discharge. We will discharge on 3 mg warfarin and patient will follow-up with PCP on 11/27 to have INR drawn. Instructed to take daily weights and have a low-salt diet. Also recommend patient get a sleep study done on an outpatient basis. Discharge discussed with: patient - Time Spent with Patient Total time spent providing and/or coordinating discharge services: 75 minutes Time spent: Greater than 30 minutes - Discharge Medications Prescriptions: New Losartan [Cozaar] 25 mg PO DAILY #30 tablet Torsemide [Demadex] 40 mg PO DAILY #120 tablet Warfarin [Coumadin] 3 mg PO 1800 #5 tablet Continued metFORMIN [Glucophage] 1,000 mg PO BID Insulin ASPART [Novolog Flexpen] 0 units SQ ACHS Pantoprazole Sodium [Protonix] 40 mg PO DAILY Clopidogrel Bisulfate [Plavix] 75 mg PO DAILY Potassium Chloride [K-Tab ER] 20 meq PO BID Promethazine [Phenergan] 25 mg PO Q12H PRN PRN Reason: Nausea Albuterol Sulfate [Proventil Hfa] 2 puff IH Q4H PRN PRN Reason: Shortness Of Breath Tizanidine HCl 2 mg PO BID PRN PRN Reason: Spasms Metoprolol Succinate [Toprol Xl] 100 mg PO DAILY Linagliptin [Tradjenta] 5 mg PO DAILY Ezetimibe [Zetia] 10 mg PO DAILY Umeclidinium Brm/Vilanterol Tr [Anoro Ellipta 62.5-25 Mcg INH] 1 puff PO DAILY Atorvastatin [Lipitor] 40 mg PO DAILY Ipratropium/Albuterol Neb [Duoneb] 1 inh PO QID Fluticasone Propionate Nasal [Flonase] 1 spray NS BID Insulin Glargine,Hum.rec.anlog [Lantus Solostar] 60 unit SQ HS Discontinued Furosemide [Lasix] 60 mg PO BID predniSONE [PredniSONE] See Taper PO TAPER Amlodipine Besylate 10 mg PO DAILY Warfarin [Coumadin] 5 mg PO 1800 Doxycycline Hyclate 100 mg PO BID HYDROcodone/Acet 7.5/325 mg [Buchanan 7.5-325 mg] 1 tab PO Q4-6H PRN PRN Reason: Pain Losartan Potassium 100 mg PO DAILY Home Medications: Albuterol Sulfate [Proventil Hfa] 2 puff IH Q4H PRN 11/14/18 [History] Atorvastatin [Lipitor] 40 mg PO DAILY 11/14/18 [History] Clopidogrel Bisulfate [Plavix] 75 mg PO DAILY 11/14/18 [History] Ezetimibe [Zetia] 10 mg PO DAILY 11/14/18 [History] Fluticasone Propionate Nasal [Flonase] 1 spray NS BID 11/14/18 [History] Insulin ASPART [Novolog Flexpen] 0 units SQ ACHS 11/14/18 [History] Insulin Glargine,Hum.rec.anlog [Lantus Solostar] 60 unit SQ HS 11/14/18 [History] Ipratropium/Albuterol Neb [Duoneb] 1 inh PO QID 11/14/18 [History] Linagliptin [Tradjenta] 5 mg PO DAILY 11/14/18 [History] Metoprolol Succinate [Toprol Xl] 100 mg PO DAILY 11/14/18 [History] Pantoprazole Sodium [Protonix] 40 mg PO DAILY 11/14/18 [History] Potassium Chloride [K-Tab ER] 20 meq PO BID 11/14/18 [History] Promethazine [Phenergan] 25 mg PO Q12H PRN 11/14/18 [History] Tizanidine HCl 2 mg PO BID PRN 11/14/18 [History] Umeclidinium Brm/Vilanterol Tr [Anoro Ellipta 62.5-25 Mcg INH] 1 puff PO DAILY 11/14/18 [History] metFORMIN [Glucophage] 1,000 mg PO BID 11/14/18 [History] Losartan [Cozaar] 25 mg PO DAILY #30 tablet 11/25/18 [Rx] Torsemide [Demadex] 40 mg PO DAILY #120 tablet 11/25/18 [Rx] Warfarin [Coumadin] 3 mg PO 1800 #5 tablet 11/25/18 [Rx] Allergies/Adverse Reactions: Allergy/AdvReac Type Severity Reaction Status Date / Time Amoxicillin [From Trimox] Allergy Rash Verified 05/30/18 11:46 Penicillins AdvReac See Verified 05/30/18 11:46 Comments Date of admission: 11/15/18 10:46 Primary care physician: Marielle Wang CNP Consults: 11/15/18 07:58 Consult to Cardiology [CONS] Routine Comment: Consulting Provider: [facility] Reason for Consult: severe CHF. LA thrombus. w/ supratherapeutic INR. Call Completed: No 11/21/18 08:49 Consult to Physical Therapy [CONS] Routine Comment: Evaluate, develop and implement POC Reason for Consult: Deconditioning Does patient have active BEDREST order?: No Is patient medically & hemodynamically stable?: Yes Patient assessed for mobility or mobilized this visit?: No 11/21/18 11:04 OT [Consult to Occupational Therapy] [CONS] Routine Comment: Evaluate, develop and implement POC Reason for Consult: deconditioning, may need placement Does patient have active BEDREST order?: No Is patient medically & hemodynamically stable?: Yes Patient assessed for mobility or mobilized this visit?: No 11/22/18 15:28 Consult to Speech Therapy [CONS] Routine Comment: Evaluate, develop and implement POC Reason for Consult: assess aspiration risk Call Completed: No - Constitutional Vitals: Temp Pulse Resp BP Pulse Ox 98.2 F 94 16 167/96 95 11/25/18 11:02 11/25/18 11:02 11/25/18 11:13 11/25/18 11:02 11/25/18 11:13 Exam: General: Ill-appearing and in no acute distress HEENT: No erythema of posterior pharynx. No exudates. Lymphatics: No mandibular or cervical lymphadenopathy Cardiovascular: RRR. No murmurs. No chest wall tenderness. Lungs: Clear to auscelltation bilaterally. Regular chest rise. Abdomen: Non-tender. No rebound or gaurding. Nl bowel sounds. Extremities: No edema. 2+ pulses radial and pedal pulses Skin: No rahses, abrasions, or contusions. Nl cap refill. Psych: Nl attention. A&Ox3 Neuro: planner intern II-XII intact. 5/5 strength. Sensation to light touch and pinprick intact. - Patient Status Disposition: Home, Self-Care Condition: Good Functional capacity at discharge: uses cane/walker Overall status at discharge: patient is progressing back to baseline - Discharge Instructions Follow Up With: Marielle Wang CNP [Primary Care Provider] - Additional Instructions: RISK FACTORS: STOP SMOKING: If you smoke, STOP. Smoking or tobacco use significantly increases your risk of heart disease because nicotine causes the arteries to narrow or constrict. It also causes fats to stick to the artery. Your chances of having a heart attack are greatly increased if you continue to smoke. For more information, call the education line for smoking cessation 9-238-MHDVKRD EAT A LOW FAT/CHOLESTEROL/SODIUM DIET: This diet may help reduce your chances of having a heart attack. LIFTING: With affected extremity: Avoid bending, pushing off and lifting more than 2 pounds for 24 hours The following 48 hours, avoid lifting anything more than 5 pounds Avoid strenuous activity or repetitive motions ACTIVITY: You may walk or climb stairs as tolerated You can resume sexual activity as tolerated In general, you are encouraged to engage in a minimum of 30 minutes or more of moderate intensity physical activity, such as brisk walking, daily or at least 3-4 times weekly BATHING Do not submerge the site into water (bath tub, hot tub, swimming pool, dishes) for 1 week. This can be a source for infection into the blood stream. You may shower after 24 hours SITE CARE: After 24 hours, you may remove the dressing and leave the site open to air. Keep the site clean and dry. Clean gently and pat dry. You can expect bruising and tenderness that gradually resolve within a week or two. Return to work as instructed per your physician Resume driving as instructed per physician Keep all scheduled follow up appointments Resume medications as instructed IMPORTANT: If prescribed a Platelet Aggregation Inhibitor such as, Plavix, Brilinta or Effient: Duration of therapy is minimum one year These medications are often used in combination with Aspirin in prevention of future heart attacks Never discontinue unless consult with your Chiropractic Neurologist STROKE (CVA) Risk factors for a stroke are: Age, cigarette smoking, diabetes, excessive alcohol consumption, family history, high blood pressure, overweight, physical inactivity, prior stroke, heart attack, diagnosis of carotid artery stenosis or other artery disease. Warning signs: Sudden numbness or weakness of the face, arm or leg; especially on one side of the body, sudden confusion, trouble speaking or understanding, sudden trouble seeing in one or both eyes, sudden trouble walking, dizziness, loss of balance or coordination, sudden severe headache with no cause. Call 911 or go to the Emergency Room. CONGESTIVE HEART FAILURE: If you have been diagnosed with Congestive Heart Failure (CHF) and your symptoms return, make an appointment with your physician Weigh yourself daily. Notify your physician if you have a weight gain of two or more pounds in one day or five or more pounds in one week. If you experience any difficulty breathing, please call 911 BLEEDING: Although the risk of bleeding is minimal, it can happen. If you have any bleeding from the site, apply firm pressure above the puncture site for 10-15 minutes. If the bleeding does not stop, continue manual pressure and call 911 CARDIAC REHABILITATION: If you have had a heart attack or cardiac stents placed, please ask your piped buttonhole machine operator if Cardiac Rehabilitation is right for you. Cardiac Rehabilitation is recommended, beneficial to your health and can improve the following: strengthen your heart, improve ejection fraction, weight reduction, decrease cholesterol levels, lower blood pressure, lower blood sugar, improve stamina and enhance self-image. If you have any questions please call [facility] at [phone]. Contact [facility] ( ) if: You develop a fever greater than 101 degrees Fahrenheit Your site becomes reddened or has any drainage You have an increase in pain or burning at the site or if a large knot forms at the site. If you experience chest pain, shortness of breath, dizziness, or extreme tiredness, stop the activity and rest. Please notify [facility] office if you experience any of these symptoms and they are not relieved by rest please call 911! - Diet and Activity Activity: ambulate only with your walker Diet: diabetic diet, low salt diet
--- NOTE | 2018-11-26 09:54 | Physician Discharge Referral ---
Home Health/Hosp Referral Info Transfer to: Home Health Attending Provider: Corbin Carroll MD Provider in Charge Post Discharge: PCP - Diagnosis (1) Acute and chronic respiratory failure with hypoxia Priority: Primary Status: Acute (2) Acute on chronic HFrEF (heart failure with reduced ejection fraction) Priority: Secondary Status: Acute (3) HFrEF (heart failure with reduced ejection fraction) Priority: Secondary Status: Acute (4) LA thrombus Priority: Secondary Status: Chronic (5) Atrial fibrillation Priority: Secondary Status: Chronic (6) Diabetes mellitus Priority: Secondary Status: Chronic (7) PAD (peripheral artery disease) Priority: Secondary Status: Chronic (8) Pneumonia Priority: Secondary Status: Suspected (9) Tobacco use Priority: Secondary Status: Chronic (10) NICM (nonischemic cardiomyopathy) Priority: Secondary Status: Acute - Respiratory Orders Oxygen / L per min (2L) Smoking Cessation: Smoking cessation has been advised. For more information, call the [place] Tobacco Quit Line at 0-887-SPJT-NOW. - Diet/Nutrition Diet/Nutrition Orders: Regular, No Concentrated Sweets - Activity Activity Orders: Up ad esperanza, Ambulate, Walker - Services Needed Following services are medically necessary services: Nursing (2.5L), Physical Therapy - Transfer Medications Prescriptions: Warfarin [Coumadin] 3 mg PO 1800 #5 tablet Transmission Status: Received by [facility] Losartan [Cozaar] 25 mg PO DAILY #30 tablet Transmission Status: Received by [facility] Torsemide [Demadex] 40 mg PO DAILY #120 tablet Transmission Status: Received by [facility] Home Medications: Albuterol Sulfate [Proventil Hfa] 2 puff IH Q4H PRN 11/14/18 [History] Atorvastatin [Lipitor] 40 mg PO DAILY 11/14/18 [History] Clopidogrel Bisulfate [Plavix] 75 mg PO DAILY 11/14/18 [History] Ezetimibe [Zetia] 10 mg PO DAILY 11/14/18 [History] Fluticasone Propionate Nasal [Flonase] 1 spray NS BID 11/14/18 [History] Insulin ASPART [Novolog Flexpen] 0 units SQ ACHS 11/14/18 [History] Insulin Glargine,Hum.rec.anlog [Lantus Solostar] 60 unit SQ HS 11/14/18 [History] Ipratropium/Albuterol Neb [Duoneb] 1 inh PO QID 11/14/18 [History] Linagliptin [Tradjenta] 5 mg PO DAILY 11/14/18 [History] Metoprolol Succinate [Toprol Xl] 100 mg PO DAILY 11/14/18 [History] Pantoprazole Sodium [Protonix] 40 mg PO DAILY 11/14/18 [History] Potassium Chloride [K-Tab ER] 20 meq PO BID 11/14/18 [History] Promethazine [Phenergan] 25 mg PO Q12H PRN 11/14/18 [History] Tizanidine HCl 2 mg PO BID PRN 11/14/18 [History] Umeclidinium Brm/Vilanterol Tr [Anoro Ellipta 62.5-25 Mcg INH] 1 puff PO DAILY 11/14/18 [History] metFORMIN [Glucophage] 1,000 mg PO BID 11/14/18 [History] Losartan [Cozaar] 25 mg PO DAILY #30 tablet 11/25/18 [Rx] Torsemide [Demadex] 40 mg PO DAILY #120 tablet 11/25/18 [Rx] Warfarin [Coumadin] 3 mg PO 1800 #5 tablet 11/25/18 [Rx] Allergies/Adverse Reactions: Allergy/AdvReac Type Severity Reaction Status Date / Time Amoxicillin [From Trimox] Allergy Rash Verified 05/30/18 11:46 Penicillins AdvReac See Verified 05/30/18 11:46 Comments Certification: Further, I certify that my clinical findings support that this patient is homebound (i.e. absences from home require considerable and taxing effort and are for medical reasons or voodoo services or infrequently or short duration when for other reasons) because: Very taking for patient to leave home due to post-hospital weakness and limited mobility. Homebound Reason: Patient requires assistance of a person or device to safely leave home Attestation: My signature below is to certify that this patient is under my care and that I, or nurse practitioner, or a physician's bricklayer's assistant working with me, has a [id number] encounter with this patient. Corbin Carroll MD
== END 2018-11-25 18:27 | disposition home or self-care (01) | DRG 286 ==
LOC: 2NENU → SUATTDRO 11-15 10:46
PROVIDERS: ADMIT Internal Medicine; ATTEND Internal Medicine

== ENCOUNTER 2019-01-03 22:41 | Inpatient (IN) ==
[2019-01-04] MEDS ORDERED: Naloxone 0.4 MG/ML INJ ONE (00:26)
[2019-01-04] MEDS ORDERED: Ondansetron ODT 4 MG TAB.RAPDIS SL PRN (01:05)
[2019-01-04] MEDS ORDERED: Naloxone 0.4 MG/ML INJ IVP PRN ×2 (01:05→03:00)
[2019-01-04] MEDS ORDERED: D5% in Water 1,000 ML IVC PRN (01:08)
[2019-01-04] MEDS ORDERED: Dextrose Gel 15 GM/37.5 ML TUBE PO PRN ×2 (01:08)
[2019-01-04] MEDS ORDERED: *HR* Dextrose 50 % in Water (Syg) 50 ML SYRINGE IVP PRN (01:08)
[2019-01-04] MEDS ORDERED: Ipratropium/Albuterol Neb 3 ML IH PRN (01:11)
[2019-01-04] MEDS ORDERED: 0.9 % Sodium Chloride 1,000 ML IVC ONE (02:09)
[2019-01-04 02:22] LABS: INR 3.6; Prothrombin Time 41.5 Seconds (9.4-12.1)
[2019-01-04] MEDS ORDERED: 0.9 % Sodium Chloride 500 ML IVC ONE (03:26)
[2019-01-04 03:37] LABS: Basophils % 0.1 %; Eosinophils % 0.1 %; Hematocrit 43.9 % (35.3-44.9); Hemoglobin 14.3 g/dL (11.5-15.4); Immature Granulocytes % 0.9 % (0-4); Lymphocytes # 0.4 K/mcL (0.6-4.6); Lymphocytes % 2.3 %; Mean Corpuscular HGB Conc 32.6 g/dL (31.6-35.5); Mean Corpuscular Hemoglobin 24.9 pg (28.0-33.3); Mean Platelet Volume 9.5 fL (9.4-12.4); Monocytes # 0.2 K/mcL (0.0-1.3); Monocytes % 0.9 %; Neutrophils # 18.5 K/mcL (1.6-8.9); Nucleated Red Blood Cells 0.1 /100 WBC (0); Platelet Count 432 K/mcL (140-400); Red Blood Count 5.75 M/mcL (3.82-4.97); Red Cell Distribution Width 19.6 % (11.5-14.5); Segmented Neutrophils % 95.7 %; White Blood Count 19.3 K/mcL (4.3-11.1)
[2019-01-04 03:39] LABS: Mean Corpuscular Volume 76.3 fL (83.0-100.0)
[2019-01-04 03:43] LABS: Albumin/Globulin Ratio 1.3 (1.1-2.2); Bilirubin,Total 1.9 mg/dL (0.3-1.0); Calcium 9.5 mg/dL (8.6-10.3); Globulin 3.1 g/dL (2.4-3.5); Magnesium 1.7 mg/dL (1.6-2.6); Phosphorous 5.1 mg/dL (2.7-4.5); Potassium 3.6 mEq/L (3.5-5.1); Total Protein 7.1 g/dL (6.4-8.9)
[2019-01-04 03:46] LABS: Troponin I 0.13 ng/mL (< 0.04)
[2019-01-04] MEDS: Insulin LISPRO 300 UNITS/3 ML VIAL SQ SCH ×4 (06:27→23:00)
[2019-01-04] MEDS: Metoprolol XL (24 HR) Succ 50 MG TAB.ER.24H PO SCH (08:55)
[2019-01-04] MEDS: Nystatin SUSP 5 ML UD.LIQ PO SCH ×4 (08:55→20:40)
[2019-01-04 09:00] LABS: Adenovirus Not Detected (Not Detect); Bordetella Pertussis Not Detected (Not Detect); Chlamydophila pneumoniae Not Detected (Not Detect); Coronavirus 229E Not Detected (Not Detect); Coronavirus HKU1 Not Detected (Not Detect); Coronavirus NL63 Not Detected (Not Detect); Coronavirus OC43 Not Detected (Not Detect); Human Metapneumovirus Not Detected (Not Detect); Human Rhinovirus/Enterovirus Not Detected (Not Detect); Influenza A Subtype 2009 H1 Not Detected (Not Detect); Influenza A Untypeable Not Detected (Not Detect); Influenza B Not Detected (Not Detect); Mycoplasma pneumoniae Not Detected (Not Detect); Parainfluenza Virus 1 Not Detected (Not Detect); Parainfluenza Virus 2 Not Detected (Not Detect); Parainfluenza Virus 3 Not Detected (Not Detect); Parainfluenza Virus 4 Not Detected (Not Detect); Respiratory Syncytial Virus Not Detected (Not Detect)
[2019-01-04] MEDS ORDERED: levoFLOXacin 500 MG/100 ML 500 MG/100 ML BAG IVPB SCH (09:00)
[2019-01-04] MEDS ORDERED: NON-FORMULARY MEDICATION 1 EACH EACH (Ezetimibe [Zetia] 10 MG) PO SCH (09:00)
[2019-01-04 12:10] LABS: Clarity,Urine Clear (Clear); Color,Urine Yellow (Yellow)
[2019-01-04 12:11] LABS: Bilirubin,Urine Negative (Negative); Blood,Urine Negative (Negative); Glucose,Urine (UA) Normal (Normal); Ketones,Urine Negative (Negative); Leukocyte Esterase,Urine Negative (Negative); Nitrite,Urine Negative (Negative); Protein,Urine Negative (Neg-Trace); Specific Gravity,Urine 1.013 (1.010-1.025); Urobilinogen,Urine Normal (Normal)
[2019-01-04 12:24] LABS: Amphetamine Screen,Urine Negative ng/mL (Cutoff=1000); Barbiturate Screen,Urine Negative ng/mL (Cutoff=200); Benzodiazepines Screen,Urine Negative ng/mL (Cutoff=200); Cannabinoid Screen,Urine Negative ng/mL (Cutoff = 50); Cocaine Screen,Urine Negative ng/mL (Cutoff= 300); Opiate Screen,Urine Positive ng/mL (Cutoff=300); Phencyclidine Screen,Urine Negative ng/mL (Cutoff=25)
[2019-01-04] MEDS ORDERED: D5% in 0.9% NACL 1,000 ML IVC SCH (13:30)
[2019-01-04] MEDS ORDERED: Warfarin perPT PO PRN (18:00)
[2019-01-04] MEDS: Cefepime HCl 2,000 MG in Water for inj. (sterile) 20 ML IVP SCH (20:39)
[2019-01-05 01:17] LABS: INR 2.3
[2019-01-05] MEDS: Insulin LISPRO 300 UNITS/3 ML VIAL SQ SCH ×3 (07:00→18:26)
[2019-01-05 08:32] LABS: Basophils % 0.1 %; Eosinophils % 0.1 %; Red Cell Distribution Width 19.5 % (11.5-14.5)
[2019-01-05 08:34] LABS: Hematocrit 42.2 % (35.3-44.9); Hemoglobin 13.7 g/dL (11.5-15.4); Immature Granulocytes % 1.1 % (0-4); Lymphocytes % 3.8 %; Mean Corpuscular HGB Conc 32.5 g/dL (31.6-35.5); Mean Corpuscular Hemoglobin 24.9 pg (28.0-33.3); Mean Corpuscular Volume 76.6 fL (83.0-100.0); Mean Platelet Volume 9.4 fL (9.4-12.4); Monocytes # 2.3 K/mcL (0.0-1.3); Monocytes % 8.5 %; Platelet Count 345 K/mcL (140-400); Red Blood Count 5.51 M/mcL (3.82-4.97); Segmented Neutrophils % 86.4 %; White Blood Count 26.6 K/mcL (4.3-11.1)
[2019-01-05 08:52] LABS: BUN/Creatinine Ratio 36 (6-26); Blood Urea Nitrogen 31 mg/dL (8-23); Calcium 9.3 mg/dL (8.6-10.3); Carbon Dioxide 27 mEq/L (23-29); Chloride 91 mEq/L (98-107); Glucose 197 mg/dL (70-105); Osmolality,Calculated 280 (280-300); Sodium 129 mEq/L (136-145); eGFR For African Americans > 60 (> 60); eGFR For Non-African Americans > 60 (> 60)
[2019-01-05 09:02] LABS: Hypochromasia Present (Not Present); Platelet Estimate Normal (Normal)
[2019-01-05] MEDS: Metoprolol XL (24 HR) Succ 50 MG TAB.ER.24H PO SCH (09:21)
[2019-01-05] MEDS: Nystatin SUSP 5 ML UD.LIQ PO SCH ×4 (09:22→20:18)
[2019-01-05] MEDS ORDERED: *HR* HYDROcodone/Acet 7.5/325 mg TABLET PO PRN (09:36)
[2019-01-05] MEDS ORDERED: Aminoglycoside Consult 1 EACH MC ONE (11:39)
[2019-01-05] MEDS ORDERED: tiZANidine 4 MG TABLET PO PRN (12:19)
[2019-01-05] MEDS ORDERED: Potassium Chloride Elixir 20 MEQ/15 ML UDC PO ONE (12:29)
[2019-01-05] MEDS: MetroNIDAZOLE 500 MG/100 ML 500 MG/100 ML BAG IVPB SCH ×2 (17:12→23:04)
[2019-01-05] MEDS: Torsemide 20 MG TABLET PO SCH (17:16)
[2019-01-05] MEDS ORDERED: *HR* Warfarin 2 MG TABLET PO ONE (18:00)
[2019-01-05] MEDS: levoFLOXacin 750 MG/150 ML 750 MG/150 ML BAG IVPB SCH (18:25)
[2019-01-05] MEDS: *HR* HYDROcodone/Acet 7.5/325 mg TABLET PO PRN (20:17)
[2019-01-05] MEDS: Cefepime HCl 2,000 MG in Water for inj. (sterile) 20 ML IVP SCH (20:21)
[2019-01-05] MEDS: Fluticasone Propionate Nasal 50 MCG/SPRAY BOTTLE NS SCH (20:22)
[2019-01-06] MEDS: Insulin LISPRO 300 UNITS/3 ML VIAL SQ SCH ×4 (00:39→20:18)
[2019-01-06 03:01] LABS: Basophils % 0.1 %; Eosinophils % 0.1 %; Hematocrit 47.5 % (35.3-44.9); Hemoglobin 15.1 g/dL (11.5-15.4); Immature Granulocytes % 0.4 % (0-4); Lymphocytes # 1.9 K/mcL (0.6-4.6); Lymphocytes % 12.3 %; Mean Corpuscular HGB Conc 31.8 g/dL (31.6-35.5); Mean Corpuscular Hemoglobin 24.9 pg (28.0-33.3); Mean Corpuscular Volume 78.3 fL (83.0-100.0); Mean Platelet Volume 9.4 fL (9.4-12.4); Monocytes % 12.3 %; Neutrophils # 11.8 K/mcL (1.6-8.9); Platelet Count 318 K/mcL (140-400); Red Blood Count 6.07 M/mcL (3.82-4.97); Red Cell Distribution Width 19.6 % (11.5-14.5); Segmented Neutrophils % 74.8 %; White Blood Count 15.8 K/mcL (4.3-11.1)
[2019-01-06 03:02] LABS: Hematocrit 47.4 % (35.3-44.9); Hemoglobin 14.8 g/dL (11.5-15.4); Mean Corpuscular HGB Conc 31.2 g/dL (31.6-35.5); Mean Corpuscular Hemoglobin 24.5 pg (28.0-33.3); Mean Corpuscular Volume 78.3 fL (83.0-100.0); Mean Platelet Volume 9.6 fL (9.4-12.4); Platelet Count 329 K/mcL (140-400); Red Blood Count 6.05 M/mcL (3.82-4.97); Red Cell Distribution Width 19.8 % (11.5-14.5); White Blood Count 15.9 K/mcL (4.3-11.1)
[2019-01-06 03:13] LABS: BUN/Creatinine Ratio 22 (6-26); Blood Urea Nitrogen 24 mg/dL (8-23); Calcium 9.2 mg/dL (8.6-10.3); Carbon Dioxide 30 mEq/L (23-29); Chloride 89 mEq/L (98-107); Glucose 201 mg/dL (70-105); Osmolality,Calculated 278 (280-300); Potassium 3.6 mEq/L (3.5-5.1); Sodium 129 mEq/L (136-145); eGFR For African Americans > 60 (> 60); eGFR For Non-African Americans 50 (> 60)
[2019-01-06 03:21] LABS: INR 1.5; Prothrombin Time 17.5 Seconds (9.4-12.1)
[2019-01-06] MEDS: *HR* HYDROcodone/Acet 7.5/325 mg TABLET PO PRN ×3 (04:39→21:02)
[2019-01-06] MEDS ORDERED: NON-FORMULARY MEDICATION 1 EACH EACH (Pantoprazole Sodium [Protonix] 40 MG) PO SCH (09:00)
[2019-01-06] MEDS: Nystatin SUSP 5 ML UD.LIQ PO SCH ×4 (09:05→20:17)
[2019-01-06] MEDS: Torsemide 20 MG TABLET PO SCH ×2 (09:05→17:26)
[2019-01-06] MEDS: Metoprolol XL (24 HR) Succ 50 MG TAB.ER.24H PO SCH (09:05)
[2019-01-06] MEDS: MetroNIDAZOLE 500 MG/100 ML 500 MG/100 ML BAG IVPB SCH ×3 (09:06→23:52)
[2019-01-06] MEDS: Fluticasone Propionate Nasal 50 MCG/SPRAY BOTTLE NS SCH ×2 (09:06→20:19)
[2019-01-06] MEDS: Potassium Chloride Elixir 20 MEQ/15 ML UDC PO SCH ×2 (11:48→20:17)
[2019-01-06] MEDS ORDERED: *HR* Warfarin 2 MG TABLET PO ONE (18:00)
[2019-01-06] MEDS: levoFLOXacin 750 MG/150 ML 750 MG/150 ML BAG IVPB SCH (18:56)
[2019-01-06] MEDS: Cefepime HCl 2,000 MG in Water for inj. (sterile) 20 ML IVP SCH (20:17)
[2019-01-07 02:53] LABS: Basophils % 0.1 %; Eosinophils # 0.1 K/mcL (0.0-0.6); Eosinophils % 0.9 %; Hematocrit 44.6 % (35.3-44.9); Hemoglobin 13.8 g/dL (11.5-15.4); Immature Granulocytes % 0.7 % (0-4); Lymphocytes # 1.9 K/mcL (0.6-4.6); Lymphocytes % 12.9 %; Mean Corpuscular HGB Conc 30.9 g/dL (31.6-35.5); Mean Corpuscular Hemoglobin 24.8 pg (28.0-33.3); Mean Corpuscular Volume 80.2 fL (83.0-100.0); Monocytes # 1.9 K/mcL (0.0-1.3); Monocytes % 13.2 %; Neutrophils # 10.4 K/mcL (1.6-8.9); Platelet Count 245 K/mcL (140-400); Red Blood Count 5.56 M/mcL (3.82-4.97); Red Cell Distribution Width 19.5 % (11.5-14.5); Segmented Neutrophils % 72.2 %; White Blood Count 14.4 K/mcL (4.3-11.1)
[2019-01-07 02:59] LABS: INR 1.8; Prothrombin Time 20.9 Seconds (9.4-12.1)
[2019-01-07 03:14] LABS: Calcium 8.4 mg/dL (8.6-10.3); Potassium 3.9 mEq/L (3.5-5.1)
[2019-01-07] MEDS: *HR* HYDROcodone/Acet 7.5/325 mg TABLET PO PRN (05:01)
[2019-01-07 07:23] VITALS: BP 114/70
[2019-01-07] MEDS: Metoprolol XL (24 HR) Succ 50 MG TAB.ER.24H PO SCH (07:48)
[2019-01-07] MEDS: Torsemide 20 MG TABLET PO SCH (07:48)
[2019-01-07] MEDS: Nystatin SUSP 5 ML UD.LIQ PO SCH (07:48)
[2019-01-07] MEDS: Potassium Chloride Elixir 20 MEQ/15 ML UDC PO SCH (07:49)
[2019-01-07] MEDS: MetroNIDAZOLE 500 MG/100 ML 500 MG/100 ML BAG IVPB SCH (07:49)
[2019-01-07] MEDS: Fluticasone Propionate Nasal 50 MCG/SPRAY BOTTLE NS SCH (07:50)
[2019-01-07] MEDS: Insulin LISPRO 300 UNITS/3 ML VIAL SQ SCH (07:57)
[2019-01-07] MEDS ORDERED: *HR* Warfarin 2 MG TABLET PO ONE (18:00)
[2019-01-08] MEDS ORDERED: levoFLOXacin 750 MG/150 ML 750 MG/150 ML BAG IVPB SCH (18:00)
== END 2019-01-07 11:40 | disposition home or self-care (01) | DRG 871 ==
LOC: 2NENU → SUATTDRO 01-04 03:00
PROVIDERS: ADMIT Internal Medicine; ATTEND Family Medicine

== ENCOUNTER 2019-01-26 15:28 | Inpatient (IN) ==
[2019-01-26] MEDS ORDERED: Naloxone 0.4 MG/ML INJ IVP PRN (17:37)
[2019-01-26 18:44] LABS: Calcium 8.9 mg/dL (8.6-10.3); Potassium 3.8 mEq/L (3.5-5.1)
[2019-01-26] MEDS ORDERED: Dextrose Gel 15 GM/37.5 ML TUBE PO PRN ×2 (18:55)
[2019-01-26] MEDS ORDERED: *HR* Dextrose 50 % in Water (Syg) 50 ML SYRINGE IVP PRN (18:55)
[2019-01-26] MEDS ORDERED: D5% in Water 1,000 ML IVC PRN (18:55)
[2019-01-26] MEDS ORDERED: 0.9 % Sodium Chloride 500 ML IVC SCH (19:00)
[2019-01-26] MEDS ORDERED: *HR* HYDROcodone/Acet 7.5/325 mg TABLET PO ONE (19:00)
[2019-01-26] MEDS ORDERED: *HR* Warfarin 2.5 MG TABLET PO ONE (19:56)
[2019-01-26] MEDS: Insulin LISPRO 300 UNITS/3 ML VIAL SQ SCH (20:20)
[2019-01-26] MEDS: Mag Hydrox/Al Hydrox/Simeth 30 ML UDC PO PRN (22:18)
[2019-01-27] MEDS ORDERED: *HR* HYDROcodone/Acet 7.5/325 mg TABLET PO ONE ×2 (01:31→11:54)
[2019-01-27] MEDS: Ondansetron 4 MG/2 ML VIAL IVP PRN ×2 (02:41→09:38)
[2019-01-27 02:42] LABS: Hematocrit 47.2 % (35.3-44.9); Hemoglobin 15.6 g/dL (11.5-15.4); Mean Corpuscular HGB Conc 33.1 g/dL (31.6-35.5); Mean Corpuscular Volume 78.8 fL (83.0-100.0); Mean Platelet Volume 9.4 fL (9.4-12.4); Platelet Count 250 K/mcL (140-400); Red Blood Count 5.99 M/mcL (3.82-4.97); Red Cell Distribution Width 23.6 % (11.5-14.5); Segmented Neutrophils % 86.5 %; White Blood Count 18.5 K/mcL (4.3-11.1)
[2019-01-27 02:43] LABS: Basophils % 0.2 %; Immature Granulocytes % 0.6 % (0-4); Lymphocytes % 5.5 %; Monocytes # 1.3 K/mcL (0.0-1.3); Monocytes % 7.2 %
[2019-01-27 02:47] LABS: INR 1.7; Prothrombin Time 18.8 Seconds (9.4-12.1)
[2019-01-27 03:07] LABS: Anisocytosis 3+ (Not Present); Microcytosis Present (Not Present); Platelet Estimate Normal (Normal); Poikilocytosis 1+ (Not Present); Target Cells 1+ (Not Present)
[2019-01-27 03:09] LABS: Calcium 9.8 mg/dL (8.6-10.3); Potassium 3.6 mEq/L (3.5-5.1)
[2019-01-27] MEDS: Mag Hydrox/Al Hydrox/Simeth 30 ML UDC PO PRN (04:37)
[2019-01-27] MEDS: Insulin LISPRO 300 UNITS/3 ML VIAL SQ SCH ×4 (09:32→20:42)
[2019-01-27] MEDS ORDERED: 0.9 % Sodium Chloride 500 ML IVC SCH (10:00)
[2019-01-27 11:15] LABS: VBG HCO3 27 mEq/L (21-27); VBG PCO2 31 mmHg (41-51); VBG PH 7.56 pH Units (7.32-7.42); VBG PO2 91 mmHg (25-50)
[2019-01-27 17:41] LABS: Bilirubin,Urine Negative (Negative); Blood,Urine Negative (Negative); Clarity,Urine Clear (Clear); Color,Urine Yellow (Yellow); Glucose,Urine (UA) 250 mg/dL (Normal); Ketones,Urine Trace mg/dL (Negative); Leukocyte Esterase,Urine Trace (Negative); Nitrite,Urine Negative (Negative); PH,Urine 6.5 pH Units (5.0-8.0); Protein,Urine Negative (Neg-Trace); Specific Gravity,Urine 1.015 (1.010-1.025); Urobilinogen,Urine Normal (Normal)
[2019-01-27 17:43] LABS: Calcium 9.2 mg/dL (8.6-10.3); Potassium 3.7 mEq/L (3.5-5.1)
[2019-01-27 17:43] LABS: Bacteria,Urine None Seen per hpf (None-Few); Hyaline Casts,Urine None Seen per lpf (None-Few); Squamous Epithelial Cell,Urine Many per lpf (None-Few); WBC,Urine 15-30 per hpf (0-3)
[2019-01-27] MEDS ORDERED: Warfarin perPT PO PRN (18:00)
[2019-01-27] MEDS ORDERED: *HR* Warfarin 2.5 MG TABLET PO ONE (18:00)
[2019-01-27] MEDS ORDERED: Ipratropium/Albuterol Neb 3 ML IH SCH (18:00)
[2019-01-27 18:11] LABS: RBC,Urine 0-3 per hpf (0-3)
[2019-01-27 18:12] LABS: Yeast,Urine Moderate per hpf (None Seen)
[2019-01-27] MEDS: *HR* HYDROcodone/Acet 7.5/325 mg TABLET PO PRN (19:36)
[2019-01-27] MEDS ORDERED: 0.9 % Sodium Chloride 250 ML IVC SCH (20:30)
[2019-01-27] MEDS: Fluticasone Propionate Nasal 50 MCG/SPRAY BOTTLE NS SCH (20:44)
[2019-01-27] MEDS ORDERED: Insulin DETEMIR 100 UNIT/ML X5UNITS SQ SCH ×2 (21:00)
[2019-01-27] MEDS: Ipratropium/Albuterol Neb 3 ML IH SCH (22:25)
[2019-01-27 23:05] LABS: Magnesium 2.5 mg/dL (1.6-2.6)
[2019-01-28 01:41] LABS: Basophils % 0.1 %; Eosinophils % 0.1 %; Hematocrit 41.2 % (35.3-44.9); Immature Granulocytes % 0.6 % (0-4); Lymphocytes # 1.8 K/mcL (0.6-4.6); Lymphocytes % 13.6 %; Mean Corpuscular Volume 76.4 fL (83.0-100.0); Mean Platelet Volume 9.6 fL (9.4-12.4); Monocytes # 1.1 K/mcL (0.0-1.3); Monocytes % 8.4 %; Neutrophils # 10.3 K/mcL (1.6-8.9); Platelet Count 219 K/mcL (140-400); Red Blood Count 5.39 M/mcL (3.82-4.97); Red Cell Distribution Width 23.3 % (11.5-14.5); Segmented Neutrophils % 77.2 %; White Blood Count 13.4 K/mcL (4.3-11.1)
[2019-01-28 01:49] LABS: INR 1.1; Prothrombin Time 12.9 Seconds (9.4-12.1)
[2019-01-28 02:05] LABS: Calcium 8.8 mg/dL (8.6-10.3); Potassium 3.9 mEq/L (3.5-5.1)
[2019-01-28 02:13] LABS: Thyroid Stimulating Hormone 1.159 mcIU/mL (0.340-5.600)
[2019-01-28] MEDS: *HR* HYDROcodone/Acet 7.5/325 mg TABLET PO PRN ×2 (03:58→11:54)
[2019-01-28] MEDS: Ipratropium/Albuterol Neb 3 ML IH SCH ×2 (04:02→09:27)
[2019-01-28 04:13] LABS: Anisocytosis 1+ (Not Present); Platelet Estimate Normal (Normal)
[2019-01-28 08:24] VITALS: BP 115/77
[2019-01-28] MEDS ORDERED: Metoprolol XL (24 HR) Succ 50 MG TAB.ER.24H PO SCH (09:00)
[2019-01-28] MEDS ORDERED: NON-FORMULARY MEDICATION 1 EACH EACH (Umeclidinium Brm/Vilanterol Tr [Anoro Ellipta 62.5-2 IH SCH (09:00)
[2019-01-28] MEDS ORDERED: Torsemide 20 MG TABLET PO SCH (09:00)
[2019-01-28] MEDS: Insulin LISPRO 300 UNITS/3 ML VIAL SQ SCH (09:13)
[2019-01-28] MEDS: Fluticasone Propionate Nasal 50 MCG/SPRAY BOTTLE NS SCH (09:13)
[2019-01-28] MEDS ORDERED: *HR* Warfarin 2.5 MG TABLET PO ONE (18:00)
== END 2019-01-28 14:10 | disposition home health service (06) | DRG 682 ==
LOC: 2NNU 17:06
PROVIDERS: ADMIT Internal Medicine; ATTEND Internal Medicine

== ENCOUNTER 2019-02-09 02:50 | Observation (INO) ==
[2019-02-09] MEDS ORDERED: Naloxone 0.4 MG/ML INJ IVP PRN (08:10)
[2019-02-09] MEDS ORDERED: Acetaminophen 325 MG TABLET PO PRN (08:10)
[2019-02-09] MEDS ORDERED: Ondansetron ODT 4 MG TAB.RAPDIS SL PRN (08:10)
[2019-02-09 08:55] LABS: Basophils % 0.2 %; Eosinophils % 0.3 %; Hematocrit 35.3 % (35.3-44.9); Hemoglobin 11.6 g/dL (11.5-15.4); Immature Granulocytes % 0.4 % (0-4); Lymphocytes # 1.8 K/mcL (0.6-4.6); Lymphocytes % 14.2 %; Mean Corpuscular HGB Conc 32.9 g/dL (31.6-35.5); Mean Corpuscular Hemoglobin 26.5 pg (28.0-33.3); Mean Corpuscular Volume 80.8 fL (83.0-100.0); Mean Platelet Volume 9.4 fL (9.4-12.4); Monocytes # 1.4 K/mcL (0.0-1.3); Monocytes % 10.7 %; Neutrophils # 9.4 K/mcL (1.6-8.9); Platelet Count 256 K/mcL (140-400); Red Blood Count 4.37 M/mcL (3.82-4.97); Red Cell Distribution Width 24.1 % (11.5-14.5); Segmented Neutrophils % 74.2 %; White Blood Count 12.6 K/mcL (4.3-11.1)
[2019-02-09 09:17] LABS: Calcium 8.1 mg/dL (8.6-10.3); Potassium 3.8 mEq/L (3.5-5.1)
[2019-02-09 09:19] LABS: Hypochromasia Present (Not Present); Macrocytosis Present (Not Present); Microcytosis Present (Not Present); Platelet Estimate Normal (Normal)
[2019-02-09 09:20] LABS: Anisocytosis 2+ (Not Present); Ovalocytes 1+ (Not Present); Poikilocytosis 1+ (Not Present); Stomatocytes 1+ (Not Present)
[2019-02-09] MEDS: levoFLOXacin 750 MG/150 ML 750 MG/150 ML BAG IVPB SCH (11:36)
[2019-02-09] MEDS ORDERED: D5% in Water 1,000 ML IVC PRN (12:37)
[2019-02-09] MEDS ORDERED: Dextrose Gel 15 GM/37.5 ML TUBE PO PRN ×2 (12:37)
[2019-02-09] MEDS ORDERED: *HR* Dextrose 50 % in Water (Syg) 50 ML SYRINGE IVP PRN (12:37)
[2019-02-09] MEDS ORDERED: tiZANidine 4 MG TABLET PO PRN (13:44)
[2019-02-09] MEDS ORDERED: Diclofenac Sodium [Voltaren] 4 GM TP PRN (13:44)
[2019-02-09 14:14] LABS: Estimated Average Glucose 275 mg/dl
[2019-02-09] MEDS: *HR* HYDROcodone/Acet 7.5/325 mg TABLET PO PRN ×3 (14:20→22:19)
[2019-02-09] MEDS: Metoprolol XL (24 HR) Succ 50 MG TAB.ER.24H PO SCH (14:20)
[2019-02-09 14:58] LABS: Adenovirus Not Detected (Not Detect); Bordetella Pertussis Not Detected (Not Detect); Chlamydophila pneumoniae Not Detected (Not Detect); Coronavirus 229E Not Detected (Not Detect); Coronavirus HKU1 Not Detected (Not Detect); Coronavirus NL63 Not Detected (Not Detect); Coronavirus OC43 Not Detected (Not Detect); Human Metapneumovirus Not Detected (Not Detect); Human Rhinovirus/Enterovirus Not Detected (Not Detect); Influenza A Subtype 2009 H1 Not Detected (Not Detect); Influenza A Untypeable Not Detected (Not Detect); Influenza B Not Detected (Not Detect); Mycoplasma pneumoniae Not Detected (Not Detect); Parainfluenza Virus 1 Not Detected (Not Detect); Parainfluenza Virus 2 Not Detected (Not Detect); Parainfluenza Virus 3 Not Detected (Not Detect); Parainfluenza Virus 4 Not Detected (Not Detect); Respiratory Syncytial Virus Not Detected (Not Detect)
[2019-02-09] MEDS: Ipratropium/Albuterol Neb 3 ML IH SCH ×2 (16:06→22:27)
[2019-02-09] MEDS: Insulin LISPRO 300 UNITS/3 ML VIAL SQ SCH (17:12)
[2019-02-09] MEDS: Torsemide 20 MG TABLET PO SCH (17:12)
[2019-02-09] MEDS: Apixaban 5 MG TABLET PO SCH (20:28)
[2019-02-09] MEDS: Fluticasone Propionate Nasal 50 MCG/SPRAY BOTTLE NS SCH (20:28)
[2019-02-09] MEDS ORDERED: Insulin LISPRO 300 UNITS/3 ML VIAL SQ SCH (21:00)
[2019-02-09] MEDS: Budesonide/Formoterol 160/4.5 1 PUFF INH IH SCH (22:27)
[2019-02-10] MEDS: *HR* HYDROcodone/Acet 7.5/325 mg TABLET PO PRN ×3 (02:17→11:44)
[2019-02-10] MEDS: Ipratropium/Albuterol Neb 3 ML IH SCH ×2 (03:49→10:03)
[2019-02-10 07:55] LABS: Basophils % 0.2 %; Eosinophils % 0.3 %; Hematocrit 38.3 % (35.3-44.9); Hemoglobin 12.2 g/dL (11.5-15.4); Immature Granulocytes % 0.7 % (0-4); Lymphocytes # 1.6 K/mcL (0.6-4.6); Lymphocytes % 15.1 %; Mean Corpuscular HGB Conc 31.9 g/dL (31.6-35.5); Mean Corpuscular Hemoglobin 26.2 pg (28.0-33.3); Mean Corpuscular Volume 82.2 fL (83.0-100.0); Mean Platelet Volume 9.4 fL (9.4-12.4); Monocytes # 1.1 K/mcL (0.0-1.3); Monocytes % 10.4 %; Neutrophils # 7.8 K/mcL (1.6-8.9); Platelet Count 280 K/mcL (140-400); Red Blood Count 4.66 M/mcL (3.82-4.97); Red Cell Distribution Width 24.3 % (11.5-14.5); Segmented Neutrophils % 73.3 %; White Blood Count 10.6 K/mcL (4.3-11.1)
[2019-02-10 08:12] LABS: Calcium 8.3 mg/dL (8.6-10.3); Potassium 4.3 mEq/L (3.5-5.1)
[2019-02-10 08:24] LABS: Anisocytosis 2+ (Not Present); Platelet Estimate Normal (Normal); Poikilocytosis 1+ (Not Present)
[2019-02-10] MEDS: Fluticasone Propionate Nasal 50 MCG/SPRAY BOTTLE NS SCH (08:58)
[2019-02-10] MEDS: levoFLOXacin 750 MG/150 ML 750 MG/150 ML BAG IVPB SCH (08:59)
[2019-02-10] MEDS: Metoprolol XL (24 HR) Succ 50 MG TAB.ER.24H PO SCH (08:59)
[2019-02-10] MEDS: Insulin LISPRO 300 UNITS/3 ML VIAL SQ SCH ×2 (08:59→11:45)
[2019-02-10] MEDS: Torsemide 20 MG TABLET PO SCH (08:59)
[2019-02-10] MEDS: Apixaban 5 MG TABLET PO SCH (08:59)
[2019-02-10] MEDS: Budesonide/Formoterol 160/4.5 1 PUFF INH IH SCH (10:03)
[2019-02-10 11:09] VITALS: BP 139/76
== END 2019-02-10 13:32 | disposition home or self-care (01) ==
LOC: 2ANU → SUATTDRO 05:31
PROVIDERS: ADMIT Internal Medicine; ATTEND Internal Medicine

== ENCOUNTER 2020-01-09 18:01 | Inpatient (IN) ==
[2020-01-09] MEDS ORDERED: Acetaminophen 325 MG TABLET PO PRN (20:08)
[2020-01-09] MEDS ORDERED: Naloxone 0.4 MG/ML INJ IVP PRN (20:08)
[2020-01-09 21:01] LABS: Adenovirus Not Detected (Not Detect); Bordetella Pertussis Not Detected (Not Detect); Chlamydophila pneumoniae Not Detected (Not Detect); Coronavirus 229E Not Detected (Not Detect); Coronavirus HKU1 Not Detected (Not Detect); Coronavirus NL63 Not Detected (Not Detect); Coronavirus OC43 Not Detected (Not Detect); Human Metapneumovirus Not Detected (Not Detect); Human Rhinovirus/Enterovirus Not Detected (Not Detect); Influenza A Subtype 2009 H1 Not Detected (Not Detect); Influenza B Not Detected (Not Detect); Mycoplasma pneumoniae Not Detected (Not Detect); Parainfluenza Virus 1 Not Detected (Not Detect); Parainfluenza Virus 2 Not Detected (Not Detect); Parainfluenza Virus 3 Not Detected (Not Detect); Parainfluenza Virus 4 Not Detected (Not Detect); Respiratory Syncytial Virus Not Detected (Not Detect); SARS-CoV-2 Not Detected (Not Detect)
[2020-01-09] MEDS ORDERED: D5% in Water 1,000 ML IVC PRN (21:14)
[2020-01-09] MEDS ORDERED: *HR* Dextrose 50 % in Water (Vial) 50 ML VIAL IVP PRN (21:14)
[2020-01-09] MEDS ORDERED: Dextrose Gel 15 GM/37.5 ML TUBE PO PRN ×2 (21:14)
[2020-01-09] MEDS ORDERED: Insulin DETEMIR 100 UNIT/ML X5UNITS SQ SCH (22:00)
[2020-01-09 22:13] LABS: Albumin 3.5 g/dL (3.5-5.7); Albumin/Globulin Ratio 1.3 (1.1-2.2); Bilirubin,Total 1.7 mg/dL (0.3-1.0); Calcium 8.2 mg/dL (8.6-10.3); Globulin 2.7 g/dL (2.4-3.5); Potassium 3.9 mEq/L (3.5-5.1); Total Protein 6.2 g/dL (6.4-8.9)
[2020-01-09] MEDS: Ipratropium/Albuterol Neb 3 ML IH SCH (22:48)
[2020-01-10] MEDS ORDERED: *HR* Heparin 5,000 UNIT/ML VIAL IVP ONE
[2020-01-10 00:58] LABS: Basophils % 0.2 %; Eosinophils # 0.1 K/mcL (0.0-0.6); Eosinophils % 0.4 %; Hematocrit 33.6 % (35.3-44.9); Hemoglobin 9.8 g/dL (11.5-15.4); Immature Granulocytes % 0.6 % (0-4); Lymphocytes # 1.8 K/mcL (0.6-4.6); Lymphocytes % 15.8 %; Mean Corpuscular HGB Conc 29.2 g/dL (31.6-35.5); Mean Corpuscular Hemoglobin 25.1 pg (28.0-33.3); Mean Corpuscular Volume 85.9 fL (83.0-100.0); Mean Platelet Volume 10.1 fL (9.4-12.4); Monocytes # 1.3 K/mcL (0.0-1.3); Monocytes % 11.3 %; Platelet Count 228 K/mcL (140-400); Red Blood Count 3.91 M/mcL (3.82-4.97); Red Cell Distribution Width 18.3 % (11.5-14.5); Segmented Neutrophils % 71.7 %; White Blood Count 11.2 K/mcL (4.3-11.1)
[2020-01-10 01:00] LABS: INR 1.7; Prothrombin Time 19.7 Seconds (9.4-12.1)
[2020-01-10] MEDS: Insulin LISPRO 300 UNITS/3 ML VIAL SQ SCH ×3 (01:10→11:50)
[2020-01-10 01:12] LABS: Calcium 7.7 mg/dL (8.6-10.3); Magnesium 2.1 mg/dL (1.6-2.6); Potassium 4.2 mEq/L (3.5-5.1)
[2020-01-10] MEDS: Ipratropium/Albuterol Neb 3 ML IH SCH ×4 (03:23→22:32)
[2020-01-10] MEDS ORDERED: Perflutren Lipid Microsphere 1.3 ML in 0.9 % Sodium Chloride 8.7 ML IVP PRN ×2 (06:57→19:33)
[2020-01-10 07:27] LABS: Troponin I 0.1 ng/mL (< 0.04)
[2020-01-10] MEDS ORDERED: Metoprolol XL (24 HR) Succ 25 MG TAB.ER.24H PO SCH (09:00)
[2020-01-10] MEDS ORDERED: CeFAZolin 2,000 MG/50 ML BAG IVPB ONE (11:25)
[2020-01-10] MEDS ORDERED: Lidocaine -MPF 4% 5 ML AMPUL ONE (14:09)
[2020-01-10] MEDS ORDERED: *HR* Rocuronium Bromide 50 MG/5 ML VIAL ONE (14:10)
[2020-01-10] MEDS ORDERED: Lidocaine -MPF 2% 2 ML VIAL ONE ×2 (14:11→14:55)
[2020-01-10] MEDS ORDERED: Ondansetron 4 MG/2 ML VIAL ONE (14:11)
[2020-01-10] MEDS ORDERED: Dexamethasone 4 MG/ML VIAL ONE (14:11)
[2020-01-10] MEDS ORDERED: *HR* Heparin 5,000 UNIT/ML VIAL ONE (14:12)
[2020-01-10] MEDS ORDERED: *HR* Propofol 200 MG/20 ML VIAL IVP ONE (14:12)
[2020-01-10] MEDS ORDERED: *HR* Phenylephrine 10 MG/ML VIAL ONE (14:16)
[2020-01-10] MEDS ORDERED: Albumin Human 5% 25.0 GM/500 ML IV.SOLN ONE (14:26)
[2020-01-10] MEDS ORDERED: *HR* Vasopressin 20 UNIT/ML VIAL ONE (14:26)
[2020-01-10] MEDS ORDERED: *HR* FentaNYL (PF) 100 MCG/2 ML VIAL ONE ×3 (14:32→17:54)
[2020-01-10] MEDS ORDERED: Heparin 1,000 UNITS/500 mL 500 ML ONE ×2 (14:32→14:36)
[2020-01-10] MEDS ORDERED: *HR* Norepinephrine 4 MG/4 ML VIAL IVC ONE (14:39)
[2020-01-10] MEDS ORDERED: *HR* Remifentanil 1 MG VIAL IVP ONE (14:58)
[2020-01-10] MEDS ORDERED: EPHEDrine 50 MG/ML VIAL ONE (17:16)
[2020-01-10] MEDS ORDERED: Sugammadex Sodium 200 MG/2 ML VIAL IV ONE ×2 (17:38→17:41)
[2020-01-10] MEDS ORDERED: *HR* Heparin 5,000 UNIT/ML VIAL IVP PRN ×4 (19:33)
[2020-01-10] MEDS ORDERED: *HR* Dextrose 50 % in Water (Vial) 50 ML VIAL IVP PRN (19:33)
[2020-01-10] MEDS ORDERED: Heparin 25,000UNIT/250ML 1/2NS 25,000 UNIT/250 ML IV.SOLN IVC SCH ×2 (19:33)
[2020-01-10] MEDS ORDERED: Acetaminophen 325 MG TABLET PO PRN (19:33)
[2020-01-10] MEDS ORDERED: Dextrose Gel 15 GM/37.5 ML TUBE PO PRN ×2 (19:33)
[2020-01-10] MEDS ORDERED: Naloxone 0.4 MG/ML INJ IVP PRN ×2 (19:33)
[2020-01-10] MEDS ORDERED: CeFAZolin Syr 2,000MG/20 ML 2,000 MG/20 ML SYRINGE IVPB ONE (19:33)
[2020-01-10] MEDS ORDERED: D5% in Water 1,000 ML IVC PRN (19:33)
[2020-01-10] MEDS ORDERED: Insulin DETEMIR 100 UNIT/ML X5UNITS SQ SCH (21:00)
[2020-01-10] MEDS: CeFAZolin 2 GM/120 ML BAG IVPB SCH (22:24)
[2020-01-10] MEDS: *HR* HYDROcodone/Acet 5/325 mg TABLET PO PRN (22:33)
[2020-01-11] MEDS: Ipratropium/Albuterol Neb 3 ML IH SCH ×4 (04:11→20:05)
[2020-01-11] MEDS: *HR* HYDROcodone/Acet 5/325 mg TABLET PO PRN (04:44)
[2020-01-11] MEDS: Insulin LISPRO 300 UNITS/3 ML VIAL SQ SCH ×3 (05:21→11:51)
[2020-01-11 05:22] LABS: Hematocrit 30.1 % (35.3-44.9); Hemoglobin 8.6 g/dL (11.5-15.4); Mean Corpuscular HGB Conc 28.6 g/dL (31.6-35.5); Monocytes % 5.2 %
[2020-01-11 05:24] LABS: Immature Granulocytes % 0.6 % (0-4); Lymphocytes # 0.7 K/mcL (0.6-4.6); Lymphocytes % 8.3 %; Mean Corpuscular Hemoglobin 24.4 pg (28.0-33.3); Mean Corpuscular Volume 85.3 fL (83.0-100.0); Monocytes # 0.4 K/mcL (0.0-1.3); Neutrophils # 6.7 K/mcL (1.6-8.9); Nucleated Red Blood Cells 1.1 /100 WBC (0); Platelet Count 203 K/mcL (140-400); Red Blood Count 3.53 M/mcL (3.82-4.97); Segmented Neutrophils % 85.9 %; White Blood Count 7.8 K/mcL (4.3-11.1)
[2020-01-11 05:42] LABS: Calcium 7.6 mg/dL (8.6-10.3); Potassium 5.1 mEq/L (3.5-5.1)
[2020-01-11 06:20] LABS: Anisocytosis 1+ (Not Present); Hypochromasia Present (Not Present); Platelet Estimate Normal (Normal); Poikilocytosis 1+ (Not Present); Polychromasia 1+ (Not Present)
[2020-01-11] MEDS ORDERED: Furosemide 20 MG TABLET PO PRN ×2 (08:35→19:39)
[2020-01-11] MEDS ORDERED: Furosemide 20 MG TABLET PO ONE (08:36)
[2020-01-11] MEDS ORDERED: Patient Taking Own Medication 1 EACH IH SCH (09:00)
[2020-01-11] MEDS ORDERED: Cyanocobalamin (B-12) 1,000 MCG TABLET PO SCH ×2 (09:00)
[2020-01-11] MEDS ORDERED: Metoprolol XL (24 HR) Succ 25 MG TAB.ER.24H PO SCH ×2 (09:00)
[2020-01-11] MEDS ORDERED: NON-FORMULARY MEDICATION 1 EACH EACH (Ezetimibe [Zetia] 10 MG) PO SCH (09:00)
[2020-01-11] MEDS ORDERED: (Umeclidinium Brm/Vilanterol Tr [Anoro Ellipta 62.5-2 IH SCH (09:00)
[2020-01-11] MEDS ORDERED: Folic Acid 1 MG TABLET PO SCH ×2 (09:00)
[2020-01-11] MEDS: CeFAZolin 2 GM/120 ML BAG IVPB SCH ×2 (09:52→14:33)
[2020-01-11] MEDS ORDERED: *HR* HYDROmorphone (PF) 1 MG/ML SYRINGE IVP ONE (10:12)
[2020-01-11] MEDS ORDERED: Isovue-370 500 ML BOTTLE IVP ONE (10:13)
[2020-01-11] MEDS ORDERED: *HR* HYDROmorphone (PF) 1 MG/ML SYRINGE IVP PRN (11:37)
[2020-01-11] MEDS ORDERED: *HR* Vasopressin 20 UNIT/ML VIAL ONE (13:57)
[2020-01-11] MEDS ORDERED: *HR* Norepinephrine 4 MG/4 ML VIAL IVC ONE (13:57)
[2020-01-11] MEDS ORDERED: ceFAZolin 1,000 MG, Sodium Chloride IRRigation 1,000 ML IR ONE (14:00)
[2020-01-11] MEDS ORDERED: Heparin 1,000 UNITS/500 mL 0 ML ONE (14:00)
[2020-01-11] MEDS ORDERED: Lidocaine -MPF 4% 5 ML AMPUL ONE (14:10)
[2020-01-11] MEDS ORDERED: *HR* Propofol 200 MG/20 ML VIAL IVP ONE ×2 (14:13→17:47)
[2020-01-11] MEDS ORDERED: Lidocaine -MPF 2% 2 ML VIAL ONE ×2 (14:14→14:17)
[2020-01-11] MEDS ORDERED: *HR* Rocuronium Bromide 50 MG/5 ML VIAL ONE ×2 (14:14→15:47)
[2020-01-11] MEDS ORDERED: *HR* Heparin 5,000 UNIT/ML VIAL ONE (14:14)
[2020-01-11] MEDS ORDERED: Ondansetron 4 MG/2 ML VIAL ONE (14:14)
[2020-01-11] MEDS ORDERED: Dexamethasone 4 MG/ML VIAL ONE (14:14)
[2020-01-11] MEDS ORDERED: *HR* Succinylcholine 200 MG/10 ML VIAL IVP ONE (14:15)
[2020-01-11] MEDS ORDERED: *HR* Phenylephrine 10 MG/ML VIAL ONE (14:31)
[2020-01-11] MEDS ORDERED: Albumin Human 5% 25.0 GM/500 ML IV.SOLN ONE (14:32)
[2020-01-11] MEDS ORDERED: *HR* FentaNYL (PF) 100 MCG/2 ML VIAL ONE ×2 (14:34→15:05)
[2020-01-11] MEDS ORDERED: Furosemide 40 MG/4 ML VIAL ONE (14:55)
[2020-01-11 17:08] LABS: ABG Base Excess -14 mEq/L (-2 to 3); ABG Chloride 112 mEq/L (98-107); ABG Glucose 106 mg/dL (60-95); ABG HCO3 14 mEq/L (21-27); ABG Ionized Calcium 0.51 mmol/L (1.15-1.35); ABG Oxygen Saturation 97 % (95-98); ABG PCO2 35 mmHg (35-45); ABG PH 7.19 pH Units (7.32-7.45); ABG PO2 112 mmHg (85-104); ABG TCO2 15 mEq/L (20-26)
[2020-01-11 17:22] LABS: ABG Base Excess -9 mEq/L (-2 to 3); ABG Chloride 98 mEq/L (98-107); ABG Glucose 150 mg/dL (60-95); ABG HCO3 19 mEq/L (21-27); ABG Ionized Calcium 0.96 mmol/L (1.15-1.35); ABG Oxygen Saturation 96 % (95-98); ABG PCO2 48 mmHg (35-45); ABG PO2 101 mmHg (85-104); ABG TCO2 20 mEq/L (20-26)
[2020-01-11] MEDS ORDERED: *HR* HYDROMORPHONE 2 MG/ML VIAL ONE (17:39)
[2020-01-11 18:22] LABS: ABG Base Excess -5 mEq/L (-2 to 3); ABG Chloride 97 mEq/L (98-107); ABG Glucose 148 mg/dL (60-95); ABG HCO3 25 mEq/L (21-27); ABG Ionized Calcium 1.16 mmol/L (1.15-1.35); ABG Oxygen Saturation 99 % (95-98); ABG PCO2 67 mmHg (35-45); ABG PH 7.18 pH Units (7.32-7.45); ABG PO2 184 mmHg (85-104); ABG TCO2 27 mEq/L (20-26)
[2020-01-11] MEDS ORDERED: Naloxone 0.4 MG/ML INJ ONE (18:25)
[2020-01-11] MEDS ORDERED: *HR* Labetalol 20 MG/4 ML SYRINGE IVP ONE (18:49)
[2020-01-11] MEDS ORDERED: *HR* Labetalol 20 MG/4 ML SYRINGE IVP PRN (18:50)
[2020-01-11] MEDS ORDERED: Ondansetron 4 MG/2 ML VIAL IVP PRN ×2 (19:39)
[2020-01-11] MEDS ORDERED: *HR* Heparin 5,000 UNIT/ML VIAL IVP PRN ×2 (19:39)
[2020-01-11] MEDS ORDERED: *HR* OxyCODONE Immed Rel 5 MG TABLET PO PRN (19:39)
[2020-01-11] MEDS ORDERED: Naloxone 0.4 MG/ML INJ IVP PRN ×2 (19:39)
[2020-01-11] MEDS ORDERED: Perflutren Lipid Microsphere 1.3 ML in 0.9 % Sodium Chloride 8.7 ML IVP PRN (19:39)
[2020-01-11] MEDS ORDERED: D5% in Water 1,000 ML IVC PRN (19:39)
[2020-01-11] MEDS ORDERED: *HR* Dextrose 50 % in Water (Vial) 50 ML VIAL IVP PRN (19:39)
[2020-01-11] MEDS ORDERED: Dextrose Gel 15 GM/37.5 ML TUBE PO PRN ×2 (19:39)
[2020-01-11 19:57] LABS: ABG Base Excess -6 mEq/L (-2 to 3); ABG HCO3 19 mEq/L (21-27); ABG Oxygen Saturation 96 % (95-98); ABG PCO2 34 mmHg (35-45); ABG PH 7.36 pH Units (7.32-7.45); ABG PO2 84 mmHg (85-104); ABG TCO2 20 mEq/L (20-26)
[2020-01-11] MEDS: Heparin 25,000UNIT/250ML 1/2NS 25,000 UNIT/250 ML IV.SOLN IVC SCH (20:33)
[2020-01-11] MEDS: Insulin DETEMIR 100 UNIT/ML X5UNITS SQ SCH (22:09)
[2020-01-12] MEDS ORDERED: Insulin LISPRO 300 UNITS/3 ML VIAL SQ SCH
[2020-01-12] MEDS: CeFAZolin 2 GM/120 ML BAG IVPB SCH ×3 (00:44→16:54)
[2020-01-12] MEDS: Heparin 25,000UNIT/250ML 1/2NS 25,000 UNIT/250 ML IV.SOLN IVC SCH (02:50)
[2020-01-12] MEDS: Ipratropium/Albuterol Neb 3 ML IH SCH ×4 (04:04→22:05)
[2020-01-12 05:19] LABS: Basophils % 0.1 %; Hemoglobin 9.2 g/dL (11.5-15.4); Immature Granulocytes % 0.6 % (0-4); Monocytes % 7.3 %; Nucleated Red Blood Cells 2.7 /100 WBC (0)
[2020-01-12 05:20] LABS: Hematocrit 30.8 % (35.3-44.9); Lymphocytes # 0.7 K/mcL (0.6-4.6); Lymphocytes % 4.2 %; Mean Corpuscular HGB Conc 29.9 g/dL (31.6-35.5); Mean Corpuscular Hemoglobin 25.6 pg (28.0-33.3); Mean Corpuscular Volume 85.8 fL (83.0-100.0); Mean Platelet Volume 11.2 fL (9.4-12.4); Monocytes # 1.2 K/mcL (0.0-1.3); Neutrophils # 14.1 K/mcL (1.6-8.9); Platelet Count 191 K/mcL (140-400); Red Blood Count 3.59 M/mcL (3.82-4.97); Red Cell Distribution Width 17.2 % (11.5-14.5); Segmented Neutrophils % 87.8 %; White Blood Count 16.1 K/mcL (4.3-11.1)
[2020-01-12 05:40] LABS: Calcium 8.6 mg/dL (8.6-10.3); Potassium 5.5 mEq/L (3.5-5.1)
[2020-01-12 05:56] LABS: Anisocytosis 1+ (Not Present); Polychromasia 1+ (Not Present)
[2020-01-12 05:57] LABS: Hypochromasia Present (Not Present); Platelet Estimate Normal (Normal); Poikilocytosis 1+ (Not Present)
[2020-01-12] MEDS: Metoprolol XL (24 HR) Succ 25 MG TAB.ER.24H PO SCH (08:17)
[2020-01-12] MEDS: Folic Acid 1 MG TABLET PO SCH (08:18)
[2020-01-12] MEDS: Cyanocobalamin (B-12) 1,000 MCG TABLET PO SCH (08:18)
[2020-01-12] MEDS: *HR* HYDROcodone/Acet 5/325 mg TABLET PO PRN ×2 (08:18→14:47)
[2020-01-12] MEDS: Insulin LISPRO 300 UNITS/3 ML VIAL SQ SCH ×3 (08:24→16:54)
[2020-01-12] MEDS: (Umeclidinium Brm/Vilanterol Tr [Anoro Ellipta 62.5-2) IH SCH (10:54)
[2020-01-12] MEDS: Sodium Bicarbonate 75 MEQ in 0.45 % Sodium Chloride 1,000 ML IVC SCH (13:11)
[2020-01-12] MEDS: SODIUM ZIRCONIUM CYCLOSILICATE 5 GM POWD.PACK PO SCH (14:45)
[2020-01-12 18:34] LABS: Sodium, Urine < 10.0 mEq/L
[2020-01-12 18:35] LABS: Bilirubin,Urine Negative (Negative); Blood,Urine Large (Negative); Clarity,Urine Turbid (Clear); Color,Urine Yellow (Yellow); Glucose,Urine (UA) Normal (Normal); Hyaline Casts,Urine Few per lpf (None Seen); Ketones,Urine Trace mg/dL (Negative); Leukocyte Esterase,Urine Large (Negative); Mucus,Urine Few per lpf (None-Few); Nitrite,Urine Negative (Negative); Protein,Urine Trace mg/dL (Neg-Trace); RBC,Urine TNTC per hpf (0-3); Specific Gravity,Urine > 1.030 (1.010-1.025); Squamous Epithelial Cell,Urine Moderate per hpf (None-Few); Urobilinogen,Urine Normal (Normal); WBC,Urine 50-100 per hpf (0-3)
[2020-01-12] MEDS: Insulin DETEMIR 100 UNIT/ML X5UNITS SQ SCH (20:05)
[2020-01-13] MEDS: Heparin 25,000UNIT/250ML 1/2NS 25,000 UNIT/250 ML IV.SOLN IVC SCH (01:58)
[2020-01-13] MEDS: *HR* HYDROcodone/Acet 5/325 mg TABLET PO PRN ×2 (02:26→16:44)
[2020-01-13] MEDS: Sodium Bicarbonate 75 MEQ in 0.45 % Sodium Chloride 1,000 ML IVC SCH (02:27)
[2020-01-13] MEDS: Ipratropium/Albuterol Neb 3 ML IH SCH ×4 (03:51→22:24)
[2020-01-13 07:53] LABS: Basophils % 0.1 %; Eosinophils % 0.2 %; Hematocrit 30.6 % (35.3-44.9); Immature Granulocytes % 0.7 % (0-4); Lymphocytes # 0.8 K/mcL (0.6-4.6); Lymphocytes % 4.5 %; Mean Corpuscular HGB Conc 29.4 g/dL (31.6-35.5); Mean Corpuscular Hemoglobin 25.3 pg (28.0-33.3); Mean Platelet Volume 10.8 fL (9.4-12.4); Monocytes # 1.9 K/mcL (0.0-1.3); Monocytes % 10.1 %; Neutrophils # 15.8 K/mcL (1.6-8.9); Nucleated Red Blood Cells 3.4 /100 WBC (0); Platelet Count 172 K/mcL (140-400); Red Blood Count 3.56 M/mcL (3.82-4.97); Red Cell Distribution Width 17.8 % (11.5-14.5); Segmented Neutrophils % 84.4 %; White Blood Count 18.6 K/mcL (4.3-11.1)
[2020-01-13 08:03] LABS: Calcium 6.9 mg/dL (8.6-10.3)
[2020-01-13] MEDS: SODIUM ZIRCONIUM CYCLOSILICATE 5 GM POWD.PACK PO SCH (08:22)
[2020-01-13] MEDS: Metoprolol XL (24 HR) Succ 25 MG TAB.ER.24H PO SCH (08:22)
[2020-01-13] MEDS: Folic Acid 1 MG TABLET PO SCH (08:22)
[2020-01-13] MEDS: Cyanocobalamin (B-12) 1,000 MCG TABLET PO SCH (08:23)
[2020-01-13] MEDS: Insulin LISPRO 300 UNITS/3 ML VIAL SQ SCH ×3 (08:23→16:41)
[2020-01-13] MEDS: (Umeclidinium Brm/Vilanterol Tr [Anoro Ellipta 62.5-2) IH SCH (08:24)
[2020-01-13 08:29] LABS: Albumin 3.4 g/dL (3.5-5.7); Phosphorous 4.8 mg/dL (2.7-4.5)
[2020-01-13 14:11] LABS: Creatinine,Urine 77 mg/dL
[2020-01-13 15:04] LABS: Uric Acid 11.6 mg/dL (2.3-7.6)
[2020-01-13 17:43] LABS: Hepatitis B Surface Antigen Nonreactive (Nonreactive)
[2020-01-13 18:12] LABS: Hepatitis B Core IgM Nonreactive (Nonreactive)
[2020-01-13 18:13] LABS: Hepatitis A Antibody IgM Nonreactive (Nonreactive)
[2020-01-13 18:14] LABS: Hepatitis C Virus Antibody Nonreactive (Nonreactive)
[2020-01-13] MEDS: Insulin DETEMIR 100 UNIT/ML X5UNITS SQ SCH (20:15)
[2020-01-14 01:51] LABS: Basophils % 0.1 %; Hematocrit 34.1 % (35.3-44.9); Immature Granulocytes % 1.1 % (0-4); Lymphocytes # 1.4 K/mcL (0.6-4.6); Lymphocytes % 6.5 %; Mean Corpuscular HGB Conc 29.3 g/dL (31.6-35.5); Mean Corpuscular Hemoglobin 25.2 pg (28.0-33.3); Mean Corpuscular Volume 85.9 fL (83.0-100.0); Mean Platelet Volume 10.3 fL (9.4-12.4); Monocytes # 2.6 K/mcL (0.0-1.3); Monocytes % 12.4 %; Nucleated Red Blood Cells 3.4 /100 WBC (0); Platelet Count 166 K/mcL (140-400); Red Blood Count 3.97 M/mcL (3.82-4.97); Segmented Neutrophils % 79.9 %; White Blood Count 21.2 K/mcL (4.3-11.1)
[2020-01-14 02:11] LABS: Calcium 8.2 mg/dL (8.6-10.3); Potassium 5.9 mEq/L (3.5-5.1)
[2020-01-14] MEDS: Ipratropium/Albuterol Neb 3 ML IH SCH ×4 (03:37→22:01)
[2020-01-14] MEDS: *HR* HYDROcodone/Acet 5/325 mg TABLET PO PRN (03:42)
[2020-01-14] MEDS: Heparin 25,000UNIT/250ML 1/2NS 25,000 UNIT/250 ML IV.SOLN IVC SCH (03:43)
[2020-01-14] MEDS ORDERED: 0.9 % Sodium Chloride 250 ML IVC PRN (07:02)
[2020-01-14] MEDS ORDERED: 0.9 % Sodium Chloride 1,000 ML PRIME SCH (07:15)
[2020-01-14] MEDS: Insulin LISPRO 300 UNITS/3 ML VIAL SQ SCH ×3 (08:01→16:20)
[2020-01-14] MEDS: (Umeclidinium Brm/Vilanterol Tr [Anoro Ellipta 62.5-2) IH SCH (08:07)
[2020-01-14] MEDS: Metoprolol XL (24 HR) Succ 25 MG TAB.ER.24H PO SCH (08:07)
[2020-01-14] MEDS: Cyanocobalamin (B-12) 1,000 MCG TABLET PO SCH (08:07)
[2020-01-14] MEDS: SODIUM ZIRCONIUM CYCLOSILICATE 5 GM POWD.PACK PO SCH (08:08)
[2020-01-14] MEDS: Folic Acid 1 MG TABLET PO SCH (08:08)
[2020-01-14] MEDS ORDERED: 0.9 % Sodium Chloride 500 ML ONE (09:23)
[2020-01-14] MEDS ORDERED: *HR* Heparin 10,000 UNIT/10 ML VIAL IV PRN (09:41)
[2020-01-14] MEDS ORDERED: *HR* Heparin 5,000 UNIT/ML VIAL ONE (09:46)
[2020-01-14] MEDS: Insulin DETEMIR 100 UNIT/ML X5UNITS SQ SCH (22:21)
[2020-01-15 03:51] LABS: Basophils % 0.1 %; Eosinophils % 0.1 %; Hematocrit 31.7 % (35.3-44.9); Hemoglobin 9.4 g/dL (11.5-15.4); Immature Granulocytes % 0.8 % (0-4); Lymphocytes # 1.3 K/mcL (0.6-4.6); Lymphocytes % 7.9 %; Mean Corpuscular HGB Conc 29.7 g/dL (31.6-35.5); Mean Corpuscular Hemoglobin 25.2 pg (28.0-33.3); Mean Platelet Volume 11.5 fL (9.4-12.4); Monocytes # 2.4 K/mcL (0.0-1.3); Monocytes % 14.3 %; Nucleated Red Blood Cells 1.8 /100 WBC (0); Platelet Count 133 K/mcL (140-400); Red Blood Count 3.73 M/mcL (3.82-4.97); Red Cell Distribution Width 18.6 % (11.5-14.5); Segmented Neutrophils % 76.8 %; White Blood Count 16.8 K/mcL (4.3-11.1)
[2020-01-15] MEDS: Ipratropium/Albuterol Neb 3 ML IH SCH ×4 (04:05→22:02)
[2020-01-15 04:09] LABS: Calcium 8.2 mg/dL (8.6-10.3); Magnesium 2.3 mg/dL (1.6-2.6); Potassium 5.1 mEq/L (3.5-5.1)
[2020-01-15] MEDS ORDERED: 0.9 % Sodium Chloride 250 ML IVC PRN (07:39)
[2020-01-15] MEDS: Metoprolol XL (24 HR) Succ 25 MG TAB.ER.24H PO SCH (07:51)
[2020-01-15] MEDS: Folic Acid 1 MG TABLET PO SCH (07:51)
[2020-01-15] MEDS: SODIUM ZIRCONIUM CYCLOSILICATE 5 GM POWD.PACK PO SCH (07:51)
[2020-01-15] MEDS: Cyanocobalamin (B-12) 1,000 MCG TABLET PO SCH (07:51)
[2020-01-15] MEDS: (Umeclidinium Brm/Vilanterol Tr [Anoro Ellipta 62.5-2) IH SCH (07:54)
[2020-01-15] MEDS: Insulin LISPRO 300 UNITS/3 ML VIAL SQ SCH ×3 (08:01→15:54)
[2020-01-15] MEDS ORDERED: *HR* Heparin 10,000 UNIT/10 ML VIAL IV PRN (11:25)
[2020-01-15] MEDS: Heparin 25,000UNIT/250ML 1/2NS 25,000 UNIT/250 ML IV.SOLN IVC SCH (12:53)
[2020-01-15 14:34] LABS: Basophils % 0.1 %; Eosinophils % 0.1 %; Hematocrit 34.7 % (35.3-44.9); Hemoglobin 10.3 g/dL (11.5-15.4); Immature Granulocytes % 1.1 % (0-4); Lymphocytes # 1.4 K/mcL (0.6-4.6); Lymphocytes % 8.1 %; Mean Corpuscular HGB Conc 29.7 g/dL (31.6-35.5); Mean Corpuscular Hemoglobin 25.1 pg (28.0-33.3); Mean Corpuscular Volume 84.6 fL (83.0-100.0); Mean Platelet Volume 11.7 fL (9.4-12.4); Monocytes # 2.7 K/mcL (0.0-1.3); Monocytes % 15.9 %; Neutrophils # 12.6 K/mcL (1.6-8.9); Nucleated Red Blood Cells 2.6 /100 WBC (0); Platelet Count 123 K/mcL (140-400); Red Cell Distribution Width 18.7 % (11.5-14.5); Segmented Neutrophils % 74.7 %; White Blood Count 16.8 K/mcL (4.3-11.1)
[2020-01-15 14:55] LABS: Albumin 3.6 g/dL (3.5-5.7); Albumin/Globulin Ratio 1.6 (1.1-2.2); Bilirubin,Total 2.2 mg/dL (0.3-1.0); Calcium 8.2 mg/dL (8.6-10.3); Globulin 2.3 g/dL (2.4-3.5); Phosphorous 3.2 mg/dL (2.7-4.5); Potassium 4.2 mEq/L (3.5-5.1); Total Protein 5.9 g/dL (6.4-8.9)
[2020-01-15 15:01] LABS: Anisocytosis 1+ (Not Present); Macrocytosis Present (Not Present); Platelet Estimate Decreased (Normal)
[2020-01-15 15:02] LABS: Microcytosis Present (Not Present)
[2020-01-15] MEDS: *HR* HYDROcodone/Acet 5/325 mg TABLET PO PRN (15:50)
[2020-01-15] MEDS: *HR* HYDROmorphone (PF) 1 MG/ML SYRINGE IVP PRN (20:21)
[2020-01-15] MEDS: Insulin DETEMIR 100 UNIT/ML X5UNITS SQ SCH (20:22)
[2020-01-16] MEDS: *HR* HYDROmorphone (PF) 1 MG/ML SYRINGE IVP PRN ×3 (03:02→14:53)
[2020-01-16] MEDS: Ipratropium/Albuterol Neb 3 ML IH SCH ×4 (03:43→22:53)
[2020-01-16] MEDS: (Umeclidinium Brm/Vilanterol Tr [Anoro Ellipta 62.5-2) IH SCH (08:14)
[2020-01-16] MEDS: Insulin LISPRO 300 UNITS/3 ML VIAL SQ SCH ×3 (08:46→17:39)
[2020-01-16] MEDS: Folic Acid 1 MG TABLET PO SCH (08:46)
[2020-01-16] MEDS: Cyanocobalamin (B-12) 1,000 MCG TABLET PO SCH (08:46)
[2020-01-16] MEDS: SODIUM ZIRCONIUM CYCLOSILICATE 5 GM POWD.PACK PO SCH (08:46)
[2020-01-16] MEDS: Metoprolol XL (24 HR) Succ 25 MG TAB.ER.24H PO SCH (08:46)
[2020-01-16 09:40] LABS: Hematocrit 35.2 % (35.3-44.9); Mean Corpuscular HGB Conc 28.4 g/dL (31.6-35.5); Mean Corpuscular Hemoglobin 24.8 pg (28.0-33.3); Mean Corpuscular Volume 87.3 fL (83.0-100.0); Mean Platelet Volume 11.3 fL (9.4-12.4); Platelet Count 125 K/mcL (140-400); Red Blood Count 4.03 M/mcL (3.82-4.97); White Blood Count 16.6 K/mcL (4.3-11.1)
[2020-01-16 09:55] LABS: Albumin 3.6 g/dL (3.5-5.7); Albumin/Globulin Ratio 1.6 (1.1-2.2); Bilirubin,Total 2.4 mg/dL (0.3-1.0); Calcium 8.6 mg/dL (8.6-10.3); Globulin 2.3 g/dL (2.4-3.5); Potassium 4.5 mEq/L (3.5-5.1); Total Protein 5.9 g/dL (6.4-8.9)
[2020-01-16] MEDS: Furosemide 40 MG/4 ML VIAL IVP SCH (17:39)
[2020-01-16] MEDS: *HR* HYDROcodone/Acet 5/325 mg TABLET PO PRN (20:23)
[2020-01-16] MEDS: Heparin 25,000UNIT/250ML 1/2NS 25,000 UNIT/250 ML IV.SOLN IVC SCH (20:24)
[2020-01-16] MEDS: Insulin DETEMIR 100 UNIT/ML X5UNITS SQ SCH (22:57)
[2020-01-17 02:52] LABS: Red Cell Distribution Width 18.5 % (11.5-14.5)
[2020-01-17 02:54] LABS: Hematocrit 30.9 % (35.3-44.9); Hemoglobin 8.9 g/dL (11.5-15.4); Immature Platelets 12.3 % (1.1-6.1); Mean Corpuscular HGB Conc 28.8 g/dL (31.6-35.5); Mean Corpuscular Hemoglobin 24.5 pg (28.0-33.3); Mean Corpuscular Volume 85.1 fL (83.0-100.0); Mean Platelet Volume 12.3 fL (9.4-12.4); Red Blood Count 3.63 M/mcL (3.82-4.97); White Blood Count 16.1 K/mcL (4.3-11.1)
[2020-01-17 03:12] LABS: Albumin 3.2 g/dL (3.5-5.7); Albumin/Globulin Ratio 1.6 (1.1-2.2); Bilirubin,Total 2.3 mg/dL (0.3-1.0); Calcium 8.4 mg/dL (8.6-10.3); Potassium 5.2 mEq/L (3.5-5.1); Total Protein 5.2 g/dL (6.4-8.9)
[2020-01-17] MEDS: Ipratropium/Albuterol Neb 3 ML IH SCH ×4 (03:50→22:41)
[2020-01-17] MEDS: *HR* HYDROcodone/Acet 5/325 mg TABLET PO PRN ×2 (05:20→19:38)
[2020-01-17] MEDS: Insulin LISPRO 300 UNITS/3 ML VIAL SQ SCH ×3 (08:23→15:48)
[2020-01-17] MEDS: Folic Acid 1 MG TABLET PO SCH (08:24)
[2020-01-17] MEDS: Furosemide 40 MG/4 ML VIAL IVP SCH (08:24)
[2020-01-17] MEDS: SODIUM ZIRCONIUM CYCLOSILICATE 5 GM POWD.PACK PO SCH (08:24)
[2020-01-17] MEDS: Cyanocobalamin (B-12) 1,000 MCG TABLET PO SCH (08:24)
[2020-01-17 11:07] LABS: ABG Base Excess -1 mEq/L (-2 to 3); ABG HCO3 25 mEq/L (21-27); ABG Oxygen Saturation 92 % (95-98); ABG PCO2 43 mmHg (35-45); ABG PH 7.37 pH Units (7.32-7.45); ABG PO2 66 mmHg (85-104); ABG TCO2 26 mEq/L (20-26)
[2020-01-17] MEDS: Metoprolol XL (24 HR) Succ 25 MG TAB.ER.24H PO SCH (12:15)
[2020-01-17] MEDS: Acetaminophen 325 MG TABLET PO PRN (15:47)
[2020-01-17] MEDS: Heparin 25,000UNIT/250ML 1/2NS 25,000 UNIT/250 ML IV.SOLN IVC SCH (15:49)
[2020-01-17 18:45] LABS: Magnesium 2.1 mg/dL (1.6-2.6)
[2020-01-17 18:49] LABS: Troponin I 0.13 ng/mL (< 0.04)
[2020-01-17] MEDS: Insulin DETEMIR 100 UNIT/ML X5UNITS SQ SCH (21:31)
[2020-01-18] MEDS: Heparin 25,000UNIT/250ML 1/2NS 25,000 UNIT/250 ML IV.SOLN IVC SCH (03:00)
[2020-01-18] MEDS: *HR* HYDROcodone/Acet 5/325 mg TABLET PO PRN ×3 (03:24→17:28)
[2020-01-18] MEDS: Ipratropium/Albuterol Neb 3 ML IH SCH ×4 (04:08→22:43)
[2020-01-18 04:45] LABS: Hemoglobin 8.7 g/dL (11.5-15.4); Mean Corpuscular Hemoglobin 25.2 pg (28.0-33.3); Mean Corpuscular Volume 84.1 fL (83.0-100.0); Mean Platelet Volume 11.7 fL (9.4-12.4); Platelet Count 116 K/mcL (140-400); Red Blood Count 3.45 M/mcL (3.82-4.97); Red Cell Distribution Width 18.6 % (11.5-14.5)
[2020-01-18 04:53] LABS: Albumin 2.9 g/dL (3.5-5.7); Albumin/Globulin Ratio 1.4 (1.1-2.2); Bilirubin,Total 2.6 mg/dL (0.3-1.0); Calcium 8.3 mg/dL (8.6-10.3); Globulin 2.1 g/dL (2.4-3.5); Potassium 4.8 mEq/L (3.5-5.1)
[2020-01-18] MEDS: SODIUM ZIRCONIUM CYCLOSILICATE 5 GM POWD.PACK PO SCH (08:21)
[2020-01-18] MEDS: Metoprolol XL (24 HR) Succ 25 MG TAB.ER.24H PO SCH (08:21)
[2020-01-18] MEDS: Folic Acid 1 MG TABLET PO SCH (08:21)
[2020-01-18] MEDS: Cyanocobalamin (B-12) 1,000 MCG TABLET PO SCH (08:21)
[2020-01-18] MEDS: Insulin LISPRO 300 UNITS/3 ML VIAL SQ SCH ×3 (08:24→16:55)
[2020-01-18] MEDS: Bisacodyl 10 MG RECTAL SUPPOSITORY RC PRN (15:38)
[2020-01-18] MEDS: Insulin DETEMIR 100 UNIT/ML X5UNITS SQ SCH (20:08)
[2020-01-18] MEDS: Acetaminophen 325 MG TABLET PO PRN (22:00)
[2020-01-19] MEDS: *HR* HYDROcodone/Acet 5/325 mg TABLET PO PRN ×3 (01:52→17:17)
[2020-01-19] MEDS: Ipratropium/Albuterol Neb 3 ML IH SCH ×4 (03:52→22:18)
[2020-01-19 06:19] LABS: Hematocrit 30.9 % (35.3-44.9); Hemoglobin 9.1 g/dL (11.5-15.4); Immature Platelets 12.7 % (1.1-6.1); Mean Corpuscular HGB Conc 29.4 g/dL (31.6-35.5); Mean Corpuscular Hemoglobin 24.7 pg (28.0-33.3); Mean Corpuscular Volume 83.7 fL (83.0-100.0); Mean Platelet Volume 12.2 fL (9.4-12.4); Red Blood Count 3.69 M/mcL (3.82-4.97); Red Cell Distribution Width 18.9 % (11.5-14.5); White Blood Count 19.9 K/mcL (4.3-11.1)
[2020-01-19 06:27] LABS: Calcium 8.6 mg/dL (8.6-10.3); Potassium 4.7 mEq/L (3.5-5.1)
[2020-01-19] MEDS: Metoprolol XL (24 HR) Succ 25 MG TAB.ER.24H PO SCH (08:44)
[2020-01-19] MEDS: SODIUM ZIRCONIUM CYCLOSILICATE 5 GM POWD.PACK PO SCH (08:44)
[2020-01-19] MEDS: Cyanocobalamin (B-12) 1,000 MCG TABLET PO SCH (08:44)
[2020-01-19] MEDS: Folic Acid 1 MG TABLET PO SCH (08:44)
[2020-01-19] MEDS: Insulin LISPRO 300 UNITS/3 ML VIAL SQ SCH ×3 (08:44→17:18)
[2020-01-19] MEDS: Heparin 25,000UNIT/250ML 1/2NS 25,000 UNIT/250 ML IV.SOLN IVC SCH (08:45)
[2020-01-19] MEDS ORDERED: Calcitonin-Salmon, Synthetic 400 UNIT/2 ML VIAL IM SCH (12:30)
[2020-01-19 14:21] LABS: Bilirubin,Urine Negative (Negative); Blood,Urine Negative (Negative); Clarity,Urine Clear (Clear); Color,Urine Yellow (Yellow); Glucose,Urine (UA) Normal (Normal); Ketones,Urine Negative (Negative); Leukocyte Esterase,Urine Negative (Negative); Nitrite,Urine Negative (Negative); PH,Urine 5.5 pH Units (5.0-8.0); Protein,Urine Negative (Neg-Trace); Specific Gravity,Urine 1.018 (1.010-1.025); Urobilinogen,Urine Normal (Normal)
[2020-01-19] MEDS ORDERED: Albumin 25% 25gram/100mL 25 GM/100 ML IV.SOLN IVPB ONE (15:11)
[2020-01-19] MEDS ORDERED: Furosemide 40 MG/4 ML VIAL IVP ONE (15:12)
[2020-01-19] MEDS: Insulin DETEMIR 100 UNIT/ML X5UNITS SQ SCH (20:53)
[2020-01-20] MEDS: *HR* HYDROcodone/Acet 5/325 mg TABLET PO PRN ×4 (01:07→20:20)
[2020-01-20] MEDS: Ipratropium/Albuterol Neb 3 ML IH SCH ×4 (03:55→22:56)
[2020-01-20 04:49] LABS: Basophils % 0.1 %
[2020-01-20 04:51] LABS: Eosinophils # 0.1 K/mcL (0.0-0.6); Eosinophils % 0.3 %; Hematocrit 29.7 % (35.3-44.9); Hemoglobin 8.7 g/dL (11.5-15.4); Immature Granulocytes % 1.1 % (0-4); Lymphocytes # 1.6 K/mcL (0.6-4.6); Lymphocytes % 10.1 %; Mean Corpuscular HGB Conc 29.3 g/dL (31.6-35.5); Mean Corpuscular Hemoglobin 24.4 pg (28.0-33.3); Mean Corpuscular Volume 83.4 fL (83.0-100.0); Mean Platelet Volume 12.1 fL (9.4-12.4); Monocytes % 12.5 %; Neutrophils # 12.1 K/mcL (1.6-8.9); Nucleated Red Blood Cells 4.8 /100 WBC (0); Platelet Count 106 K/mcL (140-400); Red Blood Count 3.56 M/mcL (3.82-4.97); Red Cell Distribution Width 18.8 % (11.5-14.5); Segmented Neutrophils % 75.9 %
[2020-01-20 05:08] LABS: % Iron Saturation 4 % (15-50); Iron 14 mcg/dL (50-170); Transferrin 272 mg/dL (203-362)
[2020-01-20 05:10] LABS: Albumin 3.3 g/dL (3.5-5.7); Albumin/Globulin Ratio 1.7 (1.1-2.2); Bilirubin,Total 2.6 mg/dL (0.3-1.0); Calcium 8.6 mg/dL (8.6-10.3); Chol/HDL Ratio 2.6 (0-4.9); Potassium 4.8 mEq/L (3.5-5.1); Total Protein 5.3 g/dL (6.4-8.9)
[2020-01-20 05:20] LABS: Platelet Estimate Decreased (Normal)
[2020-01-20 05:21] LABS: Anisocytosis 2+ (Not Present); Large Platelets Present (Not Present); Macrocytosis Present (Not Present); Microcytosis Present (Not Present)
[2020-01-20 05:26] LABS: Ferritin 45 ng/mL (10-120)
[2020-01-20 05:30] LABS: Thyroid Stimulating Hormone 3.436 mcIU/mL (0.340-5.600)
[2020-01-20 05:50] LABS: Folate > 22.3 ng/mL (3.0-16.0); Vitamin B12 > 1500 pg/mL (250-1100)
[2020-01-20] MEDS: Cyanocobalamin (B-12) 1,000 MCG TABLET PO SCH (07:45)
[2020-01-20] MEDS: Folic Acid 1 MG TABLET PO SCH (07:46)
[2020-01-20] MEDS: Metoprolol XL (24 HR) Succ 25 MG TAB.ER.24H PO SCH (07:46)
[2020-01-20] MEDS: Insulin LISPRO 300 UNITS/3 ML VIAL SQ SCH ×3 (07:46→17:10)
[2020-01-20] MEDS: Furosemide 40 MG/4 ML VIAL IVP SCH ×2 (13:52→19:27)
[2020-01-20] MEDS: Albumin 25% 25gram/100mL 25 GM/100 ML IV.SOLN IVC SCH ×2 (13:52→16:24)
[2020-01-20] MEDS: Heparin 25,000UNIT/250ML 1/2NS 25,000 UNIT/250 ML IV.SOLN IVC SCH (16:22)
[2020-01-20] MEDS: Insulin DETEMIR 100 UNIT/ML X5UNITS SQ SCH (20:21)
[2020-01-21 01:17] LABS: Hematocrit 29.8 % (35.3-44.9); Hemoglobin 8.5 g/dL (11.5-15.4); Immature Platelets 14.8 % (1.1-6.1); Mean Corpuscular HGB Conc 28.5 g/dL (31.6-35.5); Mean Corpuscular Volume 84.2 fL (83.0-100.0); Mean Platelet Volume 11.9 fL (9.4-12.4); Red Blood Count 3.54 M/mcL (3.82-4.97); Red Cell Distribution Width 18.8 % (11.5-14.5); White Blood Count 13.4 K/mcL (4.3-11.1)
[2020-01-21 01:33] LABS: Potassium 4.9 mEq/L (3.5-5.1)
[2020-01-21] MEDS: *HR* HYDROcodone/Acet 5/325 mg TABLET PO PRN ×4 (02:20→21:34)
[2020-01-21] MEDS: Ipratropium/Albuterol Neb 3 ML IH SCH ×2 (03:31→11:04)
[2020-01-21] MEDS: Cyanocobalamin (B-12) 1,000 MCG TABLET PO SCH (08:20)
[2020-01-21] MEDS: Insulin LISPRO 300 UNITS/3 ML VIAL SQ SCH ×3 (08:20→16:51)
[2020-01-21] MEDS: Folic Acid 1 MG TABLET PO SCH (08:20)
[2020-01-21] MEDS ORDERED: Ferumoxytol 510 MG in 0.9 % Sodium Chloride 100 ML IVPB ONE (09:58)
[2020-01-21] MEDS ORDERED: Albumin 25% 25gram/100mL 25 GM/100 ML IV.SOLN IVPB SCH (10:00)
[2020-01-21 10:03] LABS: Total Volume 24 Hour,Urine 0.9 Liters (0.60-1.60)
[2020-01-21 10:07] LABS: Protein/Creatinine Ratio,Urine 0.36 mg/mg (0.00-0.20)
[2020-01-21] MEDS: Metoprolol XL (24 HR) Succ 25 MG TAB.ER.24H PO SCH (10:45)
[2020-01-21] MEDS: Albumin 25% 25gram/100mL 25 GM/100 ML IV.SOLN IVPB SCH ×2 (11:50→16:51)
[2020-01-21] MEDS ORDERED: Furosemide 40 MG/4 ML VIAL IVP SCH ×3 (12:00→20:00)
[2020-01-21] MEDS ORDERED: Ipratropium/Albuterol Neb 3 ML IH PRN (13:52)
[2020-01-21] MEDS: Bisacodyl 10 MG RECTAL SUPPOSITORY RC PRN (14:57)
[2020-01-21] MEDS: Insulin DETEMIR 100 UNIT/ML X5UNITS SQ SCH (20:13)
[2020-01-22] MEDS: Heparin 25,000UNIT/250ML 1/2NS 25,000 UNIT/250 ML IV.SOLN IVC SCH (01:11)
[2020-01-22 03:16] LABS: Hematocrit 27.9 % (35.3-44.9); Hemoglobin 8.2 g/dL (11.5-15.4); Mean Corpuscular HGB Conc 29.4 g/dL (31.6-35.5)
[2020-01-22 03:18] LABS: Immature Platelets 14.9 % (1.1-6.1); Mean Corpuscular Hemoglobin 24.8 pg (28.0-33.3); Mean Corpuscular Volume 84.3 fL (83.0-100.0); Red Blood Count 3.31 M/mcL (3.82-4.97); White Blood Count 12.1 K/mcL (4.3-11.1)
[2020-01-22 03:20] LABS: Platelet Count 90 K/mcL (140-400)
[2020-01-22 03:34] LABS: Calcium 9.2 mg/dL (8.6-10.3); Potassium 4.5 mEq/L (3.5-5.1)
[2020-01-22] MEDS: *HR* HYDROcodone/Acet 5/325 mg TABLET PO PRN ×3 (04:29→18:45)
[2020-01-22] MEDS: Insulin LISPRO 300 UNITS/3 ML VIAL SQ SCH ×3 (08:12→16:08)
[2020-01-22] MEDS: Metoprolol XL (24 HR) Succ 25 MG TAB.ER.24H PO SCH (08:19)
[2020-01-22] MEDS: Cyanocobalamin (B-12) 1,000 MCG TABLET PO SCH (08:21)
[2020-01-22] MEDS: Folic Acid 1 MG TABLET PO SCH (08:22)
[2020-01-22] MEDS: Albumin 25% 25gram/100mL 25 GM/100 ML IV.SOLN IVPB SCH ×2 (09:58→16:08)
[2020-01-22] MEDS: Furosemide 40 MG/4 ML VIAL IVP SCH ×2 (11:44→18:45)
[2020-01-22] MEDS: Apixaban 5 MG TABLET PO SCH (21:13)
[2020-01-22] MEDS: Insulin DETEMIR 100 UNIT/ML X5UNITS SQ SCH (21:17)
[2020-01-23] MEDS: *HR* HYDROcodone/Acet 5/325 mg TABLET PO PRN ×4 (00:54→20:19)
[2020-01-23 02:56] LABS: Hematocrit 29.7 % (35.3-44.9); Hemoglobin 8.4 g/dL (11.5-15.4); Mean Corpuscular HGB Conc 28.3 g/dL (31.6-35.5); Mean Corpuscular Hemoglobin 24.2 pg (28.0-33.3); Mean Corpuscular Volume 85.6 fL (83.0-100.0); Platelet Count 103 K/mcL (140-400); Red Blood Count 3.47 M/mcL (3.82-4.97); Red Cell Distribution Width 19.6 % (11.5-14.5); White Blood Count 13.6 K/mcL (4.3-11.1)
[2020-01-23 04:11] LABS: Potassium 4.2 mEq/L (3.5-5.1)
[2020-01-23 04:59] LABS: Phosphorous 3.4 mg/dL (2.7-4.5)
[2020-01-23] MEDS: Albumin 25% 25gram/100mL 25 GM/100 ML IV.SOLN IVPB SCH ×2 (08:08→17:09)
[2020-01-23] MEDS: Insulin LISPRO 300 UNITS/3 ML VIAL SQ SCH ×3 (08:14→17:12)
[2020-01-23] MEDS: Apixaban 5 MG TABLET PO SCH ×2 (08:15→20:14)
[2020-01-23] MEDS: Metoprolol XL (24 HR) Succ 25 MG TAB.ER.24H PO SCH (08:16)
[2020-01-23] MEDS: Folic Acid 1 MG TABLET PO SCH (08:16)
[2020-01-23] MEDS: Cyanocobalamin (B-12) 1,000 MCG TABLET PO SCH (08:17)
[2020-01-23] MEDS: Furosemide 40 MG/4 ML VIAL IVP SCH ×2 (09:59→18:43)
[2020-01-23 10:55] LABS: Immunoglobulin A 370 mg/dL (68-408); Immunoglobulin G 605 mg/dL (768-1632); Immunoglobulin M 26 mg/dL (35-263)
[2020-01-23] MEDS: Insulin DETEMIR 100 UNIT/ML X5UNITS SQ SCH (22:41)
[2020-01-24] MEDS: *HR* HYDROcodone/Acet 5/325 mg TABLET PO PRN ×2 (02:03→09:52)
[2020-01-24 05:45] LABS: Mean Corpuscular HGB Conc 29.2 g/dL (31.6-35.5)
[2020-01-24 05:46] LABS: Basophils % 0.1 %; Eosinophils % 0.3 %; Hemoglobin 8.5 g/dL (11.5-15.4)
[2020-01-24 05:47] LABS: Hematocrit 29.5 % (35.3-44.9); Hemoglobin 8.6 g/dL (11.5-15.4); Immature Platelets 15.2 % (1.1-6.1); Mean Corpuscular Volume 85.8 fL (83.0-100.0); Mean Platelet Volume 12.5 fL (9.4-12.4); Red Blood Count 3.44 M/mcL (3.82-4.97); Red Cell Distribution Width 19.9 % (11.5-14.5); White Blood Count 13.3 K/mcL (4.3-11.1)
[2020-01-24 05:48] LABS: Hematocrit 29.1 % (35.3-44.9); Immature Granulocytes % 0.8 % (0-4); Lymphocytes # 0.9 K/mcL (0.6-4.6); Lymphocytes % 6.6 %; Mean Corpuscular HGB Conc 29.2 g/dL (31.6-35.5); Mean Corpuscular Hemoglobin 25.1 pg (28.0-33.3); Mean Corpuscular Volume 86.1 fL (83.0-100.0); Monocytes # 1.5 K/mcL (0.0-1.3); Monocytes % 10.7 %; Nucleated Red Blood Cells 1.2 /100 WBC (0); Red Blood Count 3.38 M/mcL (3.82-4.97); Red Cell Distribution Width 20.3 % (11.5-14.5); Segmented Neutrophils % 81.5 %; White Blood Count 13.7 K/mcL (4.3-11.1)
[2020-01-24 06:06] LABS: Neutrophils # 11.2 K/mcL (1.6-8.9); Platelet Count 98 K/mcL (140-400)
[2020-01-24 06:15] LABS: Magnesium 1.9 mg/dL (1.6-2.6); Phosphorous 3.3 mg/dL (2.7-4.5)
[2020-01-24 06:47] LABS: Calcium 9.3 mg/dL (8.6-10.3); Potassium 3.9 mEq/L (3.5-5.1)
[2020-01-24] MEDS: Albumin 25% 25gram/100mL 25 GM/100 ML IV.SOLN IVPB SCH (07:45)
[2020-01-24] MEDS: Insulin LISPRO 300 UNITS/3 ML VIAL SQ SCH ×3 (07:46→17:10)
[2020-01-24] MEDS: Metoprolol XL (24 HR) Succ 25 MG TAB.ER.24H PO SCH (08:45)
[2020-01-24] MEDS: Apixaban 5 MG TABLET PO SCH ×2 (08:45→20:14)
[2020-01-24] MEDS: Folic Acid 1 MG TABLET PO SCH (08:45)
[2020-01-24] MEDS: Cyanocobalamin (B-12) 1,000 MCG TABLET PO SCH (08:45)
[2020-01-24] MEDS: Furosemide 40 MG/4 ML VIAL IVP SCH ×2 (09:52→18:51)
[2020-01-24 09:59] LABS: ABG Base Excess 0 mEq/L (-2 to 3); ABG HCO3 25 mEq/L (21-27); ABG Oxygen Saturation 96 % (95-98); ABG PCO2 44 mmHg (35-45); ABG PH 7.37 pH Units (7.32-7.45); ABG PO2 83 mmHg (85-104); ABG TCO2 27 mEq/L (20-26)
[2020-01-24 10:13] LABS: Albumin/Globulin Ratio 2.9 (1.1-2.2); Bilirubin,Direct 1.5 mg/dL (0.0-0.2); Bilirubin,Total 2.5 mg/dL (0.3-1.0); Globulin 1.7 g/dL (2.4-3.5); Total Protein 6.7 g/dL (6.4-8.9)
[2020-01-24 15:49] LABS: Urine Collection Volume 895 mL
[2020-01-24] MEDS: Insulin DETEMIR 100 UNIT/ML X5UNITS SQ SCH (20:13)
[2020-01-24] MEDS: Acetaminophen 325 MG TABLET PO PRN (20:14)
[2020-01-24] MEDS ORDERED: QUEtiapine Fumarate 25 MG TABLET PO SCH (21:00)
[2020-01-24 21:29] LABS: Urine Creatinine mg/d 483 mg/d (500-1400)
[2020-01-24 23:16] LABS: Bacteria,Urine Few per hpf (None-Few); Bilirubin,Urine Negative (Negative); Blood,Urine Large (Negative); Clarity,Urine Turbid (Clear); Color,Urine Light-Yellow (Yellow); Glucose,Urine (UA) Normal (Normal); Ketones,Urine Negative (Negative); Leukocyte Esterase,Urine Large (Negative); Nitrite,Urine Negative (Negative); Protein,Urine Negative (Neg-Trace); RBC,Urine 50-100 per hpf (0-3); Specific Gravity,Urine 1.007 (1.010-1.025); Urobilinogen,Urine Normal (Normal); WBC,Urine 30-50 per hpf (0-3)
[2020-01-25 07:27] LABS: Basophils % 0.1 %; Hematocrit 28.5 % (35.3-44.9); Hemoglobin 8.4 g/dL (11.5-15.4); Mean Corpuscular HGB Conc 29.5 g/dL (31.6-35.5)
[2020-01-25 07:28] LABS: Eosinophils # 0.1 K/mcL (0.0-0.6); Eosinophils % 0.5 %; Immature Granulocytes % 0.5 % (0-4); Immature Platelets 12.9 % (1.1-6.1); Lymphocytes # 0.9 K/mcL (0.6-4.6); Lymphocytes % 7.6 %; Mean Corpuscular Hemoglobin 25.8 pg (28.0-33.3); Mean Corpuscular Volume 87.7 fL (83.0-100.0); Monocytes # 1.1 K/mcL (0.0-1.3); Monocytes % 9.4 %; Neutrophils # 9.8 K/mcL (1.6-8.9); Nucleated Red Blood Cells 1.3 /100 WBC (0); Red Blood Count 3.25 M/mcL (3.82-4.97); Red Cell Distribution Width 20.6 % (11.5-14.5); Segmented Neutrophils % 81.9 %
[2020-01-25 07:29] LABS: Platelet Count 97 K/mcL (140-400)
[2020-01-25 07:35] VITALS: BP 119/74
[2020-01-25] MEDS: Insulin LISPRO 300 UNITS/3 ML VIAL SQ SCH ×2 (07:40→12:40)
[2020-01-25 07:45] LABS: Calcium 9.1 mg/dL (8.6-10.3); Magnesium 1.8 mg/dL (1.6-2.6); Phosphorous 3.4 mg/dL (2.7-4.5)
[2020-01-25] MEDS: Apixaban 5 MG TABLET PO SCH (08:41)
[2020-01-25] MEDS: Acetaminophen 325 MG TABLET PO PRN (08:41)
[2020-01-25] MEDS: Folic Acid 1 MG TABLET PO SCH (08:41)
[2020-01-25] MEDS: Cyanocobalamin (B-12) 1,000 MCG TABLET PO SCH (08:41)
[2020-01-25] MEDS: Furosemide 40 MG/4 ML VIAL IVP SCH (08:43)
[2020-01-25] MEDS ORDERED: *HR* HYDROcodone/Acet 5/325 mg TABLET PO PRN (08:56)
[2020-01-25] MEDS ORDERED: Metoprolol XL (24 HR) Succ 50 MG TAB.ER.24H PO SCH (09:00)
[2020-01-25 11:34] LABS: Adenovirus Not Detected (Not Detect); Bordetella Pertussis Not Detected (Not Detect); Chlamydophila pneumoniae Not Detected (Not Detect); Coronavirus 229E Not Detected (Not Detect); Coronavirus HKU1 Not Detected (Not Detect); Coronavirus NL63 Not Detected (Not Detect); Coronavirus OC43 Not Detected (Not Detect); Human Metapneumovirus Not Detected (Not Detect); Human Rhinovirus/Enterovirus Not Detected (Not Detect); Influenza A Subtype 2009 H1 Not Detected (Not Detect); Influenza B Not Detected (Not Detect); Mycoplasma pneumoniae Not Detected (Not Detect); Parainfluenza Virus 1 Not Detected (Not Detect); Parainfluenza Virus 2 Not Detected (Not Detect); Parainfluenza Virus 3 Not Detected (Not Detect); Parainfluenza Virus 4 Not Detected (Not Detect); Respiratory Syncytial Virus Not Detected (Not Detect); SARS-CoV-2 Not Detected (Not Detect)
[2020-01-25 11:54] LABS: Alpha 2 Globulin (PEP) 0.62 g/dL (0.48-1.05); Beta Globulin (PEP) 0.68 g/dL (0.48-1.10)
[2020-01-25 11:57] LABS: IFE Reflexed IFE Done
== END 2020-01-25 16:36 | DRG 252 ==
LOC: CDU → SUATTDRO 18:55 → CDU 19:02 → SUATTDRO 20:04 → 2NNU 01-10 15:59 → 2ANU 01-15 10:00
PROVIDERS: ADMIT Internal Medicine; ATTEND Internal Medicine